=== PATIENT | female | born 1945 | race Caucasian/White ===

== ENCOUNTER → 2017-07-30 08:38 | Outpatient (CLI) | payer MEDICARE, OTHER, SELFPAY ==
[2017-07-30 11:22] LABS: Anion Gap 8 (5-15); BUN 16 mg/dL (7-18); BUN/Creat Ratio 18.8 RATIO (10-20); Calcium,Total 8.8 mg/dL (8.5-10.1); Chloride 102 mmol/L (98-107); Cholesterol 147 mg/dL (200); Creatinine, Serum 0.85 mg/dL (0.55-1.02); EST Glomerular Filtration Rate 70 mL/min (>60); Est Glom Filt Rate - Afr Amer 85 mL/min (>60); Glucose 138 mg/dL (74-106); High Density Lipoprotein 52 mg/dL; Potassium 4.2 mmol/L (3.5-5.1); Sodium Level 138 mmol/L (136-145); Triglycerides 93 mg/dL; Very Low Density Lipoprotein 19 mg/dL (5-40)
[2017-07-30 12:00] LABS: Hemoglobin A1c 7.1 % (4.2-6.3)
[2017-07-31 10:03] LABS: Hep C Antibodies <0.1 s/co ratio (0.0-0.9)
== END ==
PROVIDERS: Family Provider Family Medicine; PCP Family Medicine; Visit Provider Family Medicine
DX: I10 Essential (primary) hypertension (principal); E11.65 Type 2 diabetes mellitus with hyperglycemia; E78.00 Pure hypercholesterolemia, unspecified; Z11.59 Encounter for screening for other viral diseases
CPT/HCPCS: 36415; 80048; 80061; 83036; 86803

== ENCOUNTER → 2018-04-01 10:19 | Outpatient (CLI) | payer MEDICARE, OTHER, SELFPAY ==
--- NOTE | 2018-04-01 10:24 | BI_ITS ---
MAMMOGRAPHY - BILATERAL SCREENING REASON FOR EXAM: Female, 72 years old. Routine annual screening examination. PERTINENT HISTORY: Aunt with breast cancer. TECHNIQUE: Digital bilateral breast jenna (3D mammographic acquisition) in the CC and MLO projections. 2-D mediolateral oblique (MLO) and craniocaudad (CC) views of both breasts were obtained. CAD: Full Field Digital Mammography with Computer Added Detection was performed. COMPARISON: Comparison is made with prior study dated March 30, 2017 and March 14, 2016. FINDINGS: Breast Composition: There are scattered areas of fibroglandular density. There are no dominant masses or suspicious calcifications. Stable appearance of the small benign-appearing axillary lymph nodes. Stable 7.3 mm well-defined nodule with a central Saturday hilum in the upper outer aspect of the left breast No other significant abnormalities are identified. There has been no significant change since the prior study. BI/SCREENING MAMM (CAD), BILAT IMPRESSION: Stable bilateral screening mammogram. Yearly follow-up mammogram recommended. (A) ASSESSMENT CATEGORY: BIRADS Category 2: Benign. A letter regarding these results will be sent to the patient by the facility within 30 days. Approximately 10% of breast cancers are not detected by mammography. A normal mammogram should not delay biopsy of a clinically suspicious abnormality. [id number] Electronically Signed: Bienvenido Casper MD at 11:23 EST Tel [phone], Service support ,
== END ==
PROVIDERS: Family Provider Family Medicine; PCP Family Medicine; Visit Provider Family Medicine
DX: Z12.31 Encounter for screening mammogram for malignant neoplasm of breast (principal)
CPT/HCPCS: 77063; 77067

== ENCOUNTER → 2018-08-11 | Outpatient (CLI) | payer MEDICARE, OTHER, SELFPAY ==
[2018-08-11 10:29] LABS: Anion Gap 9 (5-15); BUN 22 mg/dL (7-18); BUN/Creat Ratio 23.4 RATIO (10-20); Chloride 106 mmol/L (98-107); Cholesterol 145 mg/dL (200); Creatinine, Serum 0.94 mg/dL (0.55-1.02); EST Glomerular Filtration Rate 62 mL/min (>60); Est Glom Filt Rate - Afr Amer 75 mL/min (>60); Glucose 201 mg/dL (74-106); High Density Lipoprotein 51 mg/dL; Sodium Level 139 mmol/L (136-145); Triglycerides 147 mg/dL; Very Low Density Lipoprotein 29 mg/dL (5-40)
[2018-08-11 10:37] LABS: Hemoglobin A1c 7.8 % (4.2-6.3); Vitamin D,25 Hydroxy 59.1 ng/mL (29.95-100.01)
== END | disposition home or self-care (01) ==
PROVIDERS: Family Provider Family Medicine; PCP Family Medicine; Referring Provider Family Medicine; Visit Provider Family Medicine
DX: E78.00 Pure hypercholesterolemia, unspecified (principal); I10 Essential (primary) hypertension; E55.9 Vitamin D deficiency, unspecified; E11.65 Type 2 diabetes mellitus with hyperglycemia
CPT/HCPCS: 36415; 80048; 80061; 82306; 83036

== ENCOUNTER → 2018-09-09 17:56 | Outpatient (CLI) | payer MEDICARE, OTHER, SELFPAY | PROVIDERS: Family Provider Family Medicine; PCP Family Medicine; Referring Provider Nurse Practitioner Adult Health; Visit Provider Nurse Practitioner Adult Health | DX: N76.0 Acute vaginitis (principal) | CPT/HCPCS: 87070; 87205 ==

== ENCOUNTER → 2018-12-31 | Outpatient (CLI) | payer MEDICARE, OTHER, SELFPAY ==
--- NOTE | 2018-12-31 15:53 | RAD_ITS ---
STUDY: X-RAY - RIGHT KNEE REASON FOR EXAM: Female, 73 years old. Pain. TECHNIQUE: 4 view(s) of the knee. COMPARISON: None. FINDINGS: Normal visualized distal femur. Normal visualized proximal tibia and fibula. Normal proximal tibiofibular articulation. There is mild degenerative arthrosis of the medial femorotibial compartment. There is mild degenerative arthrosis of the lateral femorotibial compartment. There is mild degenerative arthrosis of the patellofemoral articulation. There are atherosclerotic calcifications. RAD/Knee 4 or More Views IMPRESSION: Degenerative arthrosis. Atherosclerosis. Electronically Signed: Merlene Saha MD at 16:28 EDT Tel , Service support ,
--- NOTE | 2018-12-31 15:53 | RAD_ITS ---
STUDY: X-RAY - LEFT KNEE REASON FOR EXAM: Female, 73 years old. Knee pain. TECHNIQUE: 4 view(s) of the knee. COMPARISON: None. FINDINGS: Normal visualized distal femur. Normal visualized proximal tibia and fibula. Normal proximal tibiofibular articulation. There is mild degenerative arthrosis of the medial femorotibial compartment. There is mild degenerative arthrosis of the lateral femorotibial compartment. There is mild degenerative arthrosis of the patellofemoral articulation. There are atherosclerotic calcifications. RAD/Knee 4 or More Views IMPRESSION: Degenerative arthrosis. Atherosclerosis. Electronically Signed: Merlene Saha MD at 16:29 EDT Tel , Service support ,
== END | disposition home or self-care (01) ==
LOC: MTRAD 15:52
PROVIDERS: Family Provider Family Medicine; PCP Family Medicine; Referring Provider Family Medicine; Visit Provider Family Medicine
DX: M25.561 Pain in right knee (principal); M25.562 Pain in left knee
CPT/HCPCS: 73564

== ENCOUNTER → 2019-03-17 13:44 | Outpatient (CLI) | payer MEDICARE, OTHER, SELFPAY ==
--- NOTE | 2019-03-17 13:49 | BD_ITS ---
STUDY: DUAL ENERGY X-RAY ABSORPTIOMETRY / DXA REASON FOR EXAM: Female, 73 years old. The patient is postmenopausal. Loss of height. TECHNIQUE: Bone Mineral Density (BMD) measurements of lumbar spine and bilateral hips were obtained. COMPARISON: None. FINDINGS: Lumbar Spine (L1-L4): g/cm2 (1.125) / T-score (-0.4) / Z-score (1.3) Findings are suggestive of normal bone density with a low fracture risk. Left Femur Total: g/cm2 (0.993) / T-score (-0.1) / Z-score (1.4) Left Femoral Neck: g/cm2 (0.839) / T-score (-1.4) / Z-score (0.3) Right Femur Total: g/cm2 (1.042) / T-score (0.3) / Z-score (1.8) Right Femoral Neck: g/cm2 (0.898) / T-score (-1.0) / Z-score (0.8) BD/Dexa Bone Density Study IMPRESSION: The patient is considered osteopenic as outlined below according to World Tomas Organization (WHO) criteria with a low fracture risk. Reference Information: The T-score is the number of standard deviations above or below the standard which is normal for young adults at their peak bone mineral density. The World Health Organization (WHO) interprets the T-scores as follows: Above -1 Normal bone density Between -1 and -2.5 Osteopenia Equal to / or below -2.5 Osteoporosis As a practical clinical guideline, osteopenia may be graded as follows: Mild -1 through -1.5 Moderate -1.6 through -2.0 Severe -2.1 through -2.4 The Z-score is the number of standard deviations above or below age-matched controls. A Z-score of less than -1.5 would be considered abnormal. References: 1. NIH Osteoporosis and Related Bone Diseases http://www.osteo.org 2. International Society for Clinical Densitometry http://www.iscd.org 3. National Osteoporosis Foundation http://www.nof.org Electronically Signed: Bienvenido Casper, at 11:09 EST , Service support ,
== END ==
PROVIDERS: Family Provider Family Medicine; PCP Family Medicine; Referring Provider Family Medicine; Visit Provider Family Medicine
DX: Z78.0 Asymptomatic menopausal state (principal); Z13.820 Encounter for screening for osteoporosis
CPT/HCPCS: 77080

== ENCOUNTER → 2019-03-23 07:32 | Outpatient (CLI) | payer MEDICARE, OTHER, SELFPAY ==
[2019-03-23 07:39] LABS: Mucous, Urine 0 SEEN /hpf (<or=2+)
[2019-03-23 10:23] LABS: Absolute Lymphocyte Count 1.87 X10^3/uL (0.83-4.51); Absolute Neutrophil Count 4.4 X10^3/uL (2.0-7.7); Basophil# 0.03 X10^3/uL; Basophil% 0.4 % (0-1); Eosinophil# 0.52 X10^3/uL; Eosinophils% 6.8 % (0-5); Hematocrit 43.7 % (37-47); Hemoglobin 14.1 g/dL (12.0-15.0); Lymphocyte # 1.87 X10^3/ul (4.0); Lymphocyte % 24.4 % (19-41); Mean Corp Hgb Conc 32.3 g/dL (32-36); Mean Corpuscular Hgb 30.8 pg (27.0-32.0); Mean Corpuscular Volume 95.4 fL (81-99); Mean Platelet Vol. 10.6 fl (6.2-12.0); Monocyte# 0.82 X10^3/uL; Monocyte% 10.7 % (0-10); NRBC Flagged by Analyzer 0 % (0-5); Neutrophil % 57.4 % (47-70); Platelet Count 328 K/mm3 (150-450); RBC Distribution Width CV 13.7 % (11.6-14.6); RBC Distribution Width SD 47.7 fl (35.1-43.9); Red Blood Count 4.58 M/mm3 (4.2-5.4); White Blood Count 7.7 K/mm3 (4.4-11.0)
[2019-03-23 10:24] LABS: Color, Urine Yellow (Yellow); Glucose, Dipstick 1000 mg/dl (Normal); Ketone-Dipstick Negative (Negative); Leukocyte Esterase-Dipstick 500 /ul (Negative); Nitrite-Dipstick Negative (Negative); Occult Blood-Urine 10 /ul (Negative); Protein-Dipstick Negative (Negative); Urine Bilirubin Dipstick Negative (Negative); Urine Clarity Sl. Cloudy (Clear); Urine Urobilinogen Normal (Normal)
[2019-03-23 10:39] LABS: Bacteria 1+ /hpf (None Seen); Red Blood Cells-Urine 0-5 SEEN /hpf (0-5); Squamous Epithelial Cells - UA 0-5 SEEN /hpf (5-10); White Blood Cells 50-100 SEEN /hpf (0-5)
[2019-03-23 10:39] LABS: Vitamin D,25 Hydroxy 58.9 ng/mL (29.95-100.01)
[2019-03-23 10:40] LABS: Hemoglobin A1c 7.5 % (4.2-6.3)
[2019-03-23 10:45] LABS: Microalbumin,Random Urine 11.9 mg/L (NO RANGE EST.); Microalbumin:Creatinine Ratio 17.6 mg/g CRE (<30 mg/g CRE)
[2019-03-23 10:51] LABS: AST(SGOT) 11 U/L (15-37); Alanine Aminotransfer ALT/SGPT 23 U/L (13-56); Albumin, Serum 3.5 g/dL (3.2-5.0); Alkaline Phosphatase 103 U/L (45-117); Anion Gap 8 (5-15); BUN 21 mg/dL (7-18); BUN/Creat Ratio 22.4 RATIO (10-20); Calcium,Total 9.2 mg/dL (8.5-10.1); Chloride 103 mmol/L (98-107); Cholesterol 153 mg/dL (200); Creatinine, Serum 0.94 mg/dL (0.55-1.02); EST Glomerular Filtration Rate 63 mL/min (>60); Est Glom Filt Rate - Afr Amer 76 mL/min (>60); Globulin 3.6 g/dL (2.2-4.2); Glucose 173 mg/dL (74-106); High Density Lipoprotein 51 mg/dL; Potassium 4.1 mmol/L (3.5-5.1); Protein, Total 7.1 g/dL (6.4-8.2); Sodium Level 138 mmol/L (136-145); Thyroid Stim Hormone (TSH) 1.78 uIU/mL (0.358-3.74); Triglycerides 129 mg/dL; Very Low Density Lipoprotein 26 mg/dL (5-40)
== END ==
PROVIDERS: Family Provider Family Medicine; PCP Family Medicine; Referring Provider Family Medicine; Visit Provider Family Medicine
DX: I10 Essential (primary) hypertension (principal); E11.65 Type 2 diabetes mellitus with hyperglycemia; E78.00 Pure hypercholesterolemia, unspecified; E55.9 Vitamin D deficiency, unspecified
CPT/HCPCS: 36415; 80053; 80061; 81001; 82043; 82306; 82570; 83036; 84443; 85025

== ENCOUNTER → 2019-04-02 14:45 | Outpatient (CLI) | payer MEDICARE, OTHER, SELFPAY ==
--- NOTE | 2019-04-02 14:48 | BI_ITS ---
MAMMOGRAPHY - BILATERAL SCREENING REASON FOR EXAM: Female, 73 years old. Routine annual screening examination. PERTINENT HISTORY: Aunt with breast cancer. TECHNIQUE: Digital bilateral breast beth (3D mammographic acquisition) in the CC and MLO projections. 2-D mediolateral oblique (MLO) and craniocaudad (CC) views of both breasts were obtained. CAD: Full Field Digital Mammography with Computer Added Detection was performed. COMPARISON: Comparison is made with prior study dated April 01, 2018 and March 30, 2017. FINDINGS: Breast Composition: There are scattered areas of fibroglandular density. There are no dominant masses or suspicious calcifications. Stable benign-appearing lateral axillary lymph nodes. Stable 7.3 mm well-defined nodule in the upper outer aspect of the left breast suggestive of a small lymph node. No other significant abnormalities are identified. There has been no significant change since the prior study. BI/SCREEN MAMM (CAD) W/BETH BILAT IMPRESSION: Stable bilateral screening mammogram. Yearly follow-up mammogram recommended. (A) ASSESSMENT CATEGORY: BIRADS Category 2: Benign. A letter regarding these results will be sent to the patient by the facility within 30 days. Approximately 10% of breast cancers are not detected by mammography. A normal mammogram should not delay biopsy of a clinically suspicious abnormality. [id number] Electronically Signed: Bienvenido Casper, at 15:59 EST , Service support ,
== END ==
PROVIDERS: Family Provider Family Medicine; PCP Family Medicine; Referring Provider Family Medicine; Visit Provider Family Medicine
DX: Z12.31 Encounter for screening mammogram for malignant neoplasm of breast (principal)
CPT/HCPCS: 77063; 77067

== ENCOUNTER 2019-04-27 15:01 | Outpatient (RCR) | payer MEDICARE, OTHER, SELFPAY | END 2019-04-28 23:59 | LOC: DC 15:01 | PROVIDERS: Family Provider Family Medicine; PCP Family Medicine; Visit Provider Family Medicine | DX: Z71.3 Dietary counseling and surveillance (principal); E11.65 Type 2 diabetes mellitus with hyperglycemia | CPT/HCPCS: 97802 ==

== ENCOUNTER 2019-05-18 13:00 | Outpatient (RCR) | payer MEDICARE, OTHER, SELFPAY | END 2019-05-18 23:59 | disposition home or self-care (01) | LOC: DC 13:00 | PROVIDERS: Family Provider Family Medicine; PCP Family Medicine; Visit Provider Family Medicine | DX: Z71.3 Dietary counseling and surveillance (principal); E11.65 Type 2 diabetes mellitus with hyperglycemia | CPT/HCPCS: 97803; G0108 ==

== ENCOUNTER → 2019-10-15 07:31 | Outpatient (CLI) | payer MEDICARE, OTHER, SELFPAY ==
[2019-10-15 10:41] LABS: Hemoglobin A1c 7.1 % (3.8-5.6)
[2019-10-15 10:51] LABS: ALB/GLOB Ratio 0.9 RATIO (0.9-2.4); AST(SGOT) 13 U/L (15-37); Alanine Aminotransfer ALT/SGPT 20 U/L (13-56); Albumin, Serum 3.5 g/dL (3.2-5.0); Alkaline Phosphatase 104 U/L (45-117); Anion Gap 8 (5-15); BUN 20 mg/dL (7-18); BUN/Creat Ratio 21.1 RATIO (10-20); Calcium,Total 9.1 mg/dL (8.5-10.1); Chloride 103 mmol/L (98-107); Cholesterol 151 mg/dL (200); Creatinine, Serum 0.95 mg/dL (0.55-1.02); EST Glomerular Filtration Rate 62 mL/min (>60); Est Glom Filt Rate - Afr Amer 74 mL/min (>60); Globulin 3.8 g/dL (2.2-4.2); Glucose 159 mg/dL (74-106); High Density Lipoprotein 54 mg/dL; Phosphorus 3.7 mg/dL (2.5-4.9); Potassium 4.1 mmol/L (3.5-5.1); Protein, Total 7.3 g/dL (6.4-8.2); Sodium Level 138 mmol/L (136-145); Triglycerides 133 mg/dL; Very Low Density Lipoprotein 27 mg/dL (5-40)
== END ==
PROVIDERS: PCP Family Medicine; Referring Provider Family Medicine; Visit Provider Family Medicine
DX: E11.65 Type 2 diabetes mellitus with hyperglycemia (principal); E78.00 Pure hypercholesterolemia, unspecified; M85.80 Other specified disorders of bone density and structure, unspecified site; E55.9 Vitamin D deficiency, unspecified
CPT/HCPCS: 36415; 80053; 80061; 82306; 83036; 84100

== ENCOUNTER → 2020-02-12 | Outpatient (CLI) | payer MEDICARE, OTHER, SELFPAY ==
[2020-02-12 10:12] LABS: Absolute Neutrophil Count 4.8 X10^3/uL (2.0-7.7); Basophil# 0.02 X10^3/uL; Basophil% 0.3 % (0-1); Eosinophil# 0.48 X10^3/uL; Eosinophils% 6.3 % (0-5); Hematocrit 43.5 % (37-47); Lymphocyte % 19.7 % (19-41); Mean Corp Hgb Conc 32.2 g/dL (32-36); Mean Corpuscular Hgb 30.2 pg (27.0-32.0); Mean Platelet Vol. 10.6 fl (6.2-12.0); Monocyte# 0.78 X10^3/uL; Monocyte% 10.3 % (0-10); NRBC Flagged by Analyzer 0 % (0-5); Neutrophil % 63.1 % (47-70); Platelet Count 322 K/mm3 (150-450); RBC Distribution Width CV 13.8 % (11.6-14.6); RBC Distribution Width SD 48.1 fl (35.1-43.9); Red Blood Count 4.63 M/mm3 (4.2-5.4); White Blood Count 7.6 K/mm3 (4.4-11.0)
[2020-02-12 10:48] LABS: Microalbumin,Random Urine < 5.0 mg/L (NO RANGE EST.)
[2020-02-12 10:49] LABS: Hemoglobin A1c 7.3 % (3.8-5.6)
[2020-02-12 11:00] LABS: ALB/GLOB Ratio 0.9 RATIO (0.9-2.4); AST(SGOT) 15 U/L (15-37); Alanine Aminotransfer ALT/SGPT 20 U/L (13-56); Albumin, Serum 3.4 g/dL (3.2-5.0); Alkaline Phosphatase 113 U/L (45-117); Anion Gap 6 (5-15); BUN 16 mg/dL (7-18); BUN/Creat Ratio 16.3 RATIO (10-20); Calcium,Total 9.2 mg/dL (8.5-10.1); Chloride 107 mmol/L (98-107); Cholesterol 155 mg/dL (200); Creatinine, Serum 0.98 mg/dL (0.55-1.02); EST Glomerular Filtration Rate 59 mL/min (>60); Est Glom Filt Rate - Afr Amer 71 mL/min (>60); Globulin 3.7 g/dL (2.2-4.2); Glucose 209 mg/dL (74-106); High Density Lipoprotein 59 mg/dL; Potassium 4.4 mmol/L (3.5-5.1); Protein, Total 7.1 g/dL (6.4-8.2); Sodium Level 138 mmol/L (136-145); Triglycerides 107 mg/dL; Very Low Density Lipoprotein 21 mg/dL (5-40)
== END | disposition home or self-care (01) ==
LOC: MTLAB 08:45
PROVIDERS: PCP Family Medicine; Referring Provider Family Medicine; Visit Provider Family Medicine
DX: E78.00 Pure hypercholesterolemia, unspecified (principal); E55.9 Vitamin D deficiency, unspecified; E11.65 Type 2 diabetes mellitus with hyperglycemia
CPT/HCPCS: 36415; 80053; 80061; 82043; 82306; 82570; 83036; 85025

== ENCOUNTER → 2020-06-16 08:48 | Outpatient (CLI) | payer MEDICARE, OTHER, SELFPAY ==
[2020-06-16 10:23] LABS: Absolute Lymphocyte Count 1.98 X10^3/uL (0.83-4.51); Absolute Neutrophil Count 4.5 X10^3/uL (2.0-7.7); Basophil# 0.03 X10^3/uL; Basophil% 0.4 % (0-1); Eosinophil# 0.36 X10^3/uL; Eosinophils% 4.7 % (0-5); Hemoglobin 14.4 g/dL (12.0-15.0); Lymphocyte # 1.98 X10^3/ul (4.0); Mean Corp Hgb Conc 32.7 g/dL (32-36); Mean Corpuscular Hgb 30.6 pg (27.0-32.0); Mean Corpuscular Volume 93.4 fL (81-99); Mean Platelet Vol. 10.4 fl (6.2-12.0); Monocyte# 0.72 X10^3/uL; Monocyte% 9.4 % (0-10); NRBC Flagged by Analyzer 0 % (0-5); Neutrophil # 4.52 X10^3/uL (2.7-7.7); Neutrophil % 59.2 % (47-70); Platelet Count 362 K/mm3 (150-450); RBC Distribution Width CV 13.4 % (11.6-14.6); RBC Distribution Width SD 45.6 fl (35.1-43.9); Red Blood Count 4.71 M/mm3 (4.2-5.4); White Blood Count 7.6 K/mm3 (4.4-11.0)
[2020-06-16 10:41] LABS: AST(SGOT) 14 U/L (15-37); Alanine Aminotransfer ALT/SGPT 21 U/L (13-56); Albumin, Serum 3.7 g/dL (3.2-5.0); Alkaline Phosphatase 117 U/L (45-117); Anion Gap 5 (5-15); BUN 22 mg/dL (7-18); BUN/Creat Ratio 22.7 RATIO (10-20); Calcium,Total 9.3 mg/dL (8.5-10.1); Chloride 103 mmol/L (98-107); Cholesterol 167 mg/dL (200); Creatinine, Serum 0.97 mg/dL (0.55-1.02); EST Glomerular Filtration Rate 60 mL/min (>60); Est Glom Filt Rate - Afr Amer 73 mL/min (>60); Globulin 3.8 g/dL (2.2-4.2); Glucose 159 mg/dL (74-106); High Density Lipoprotein 58 mg/dL; Potassium 4.1 mmol/L (3.5-5.1); Protein, Total 7.5 g/dL (6.4-8.2); Sodium Level 137 mmol/L (136-145); Triglycerides 134 mg/dL; Very Low Density Lipoprotein 27 mg/dL (5-40)
[2020-06-16 10:42] LABS: Hemoglobin A1c 7.5 % (3.8-5.6)
[2020-06-16 10:47] LABS: Vitamin D,25 Hydroxy 53.3 ng/mL
== END ==
PROVIDERS: PCP Family Medicine; Referring Provider Family Medicine; Visit Provider Family Medicine
DX: I10 Essential (primary) hypertension (principal); E78.00 Pure hypercholesterolemia, unspecified; E11.65 Type 2 diabetes mellitus with hyperglycemia; E55.9 Vitamin D deficiency, unspecified
CPT/HCPCS: 36415; 80053; 80061; 82306; 83036; 85025

== ENCOUNTER 2020-06-22 13:42 | Outpatient (RCR) | payer MEDICARE, SELFPAY | END 2020-06-22 23:59 | LOC: IMMUN 13:42 | PROVIDERS: PCP Family Medicine; Visit Provider Family Medicine | DX: Z23 Encounter for immunization (principal) | CPT/HCPCS: 0011A; 0012A; 91301 ==

== ENCOUNTER → 2020-08-17 09:51 | Outpatient (CLI) | payer MEDICARE, SELFPAY | PROVIDERS: PCP Family Medicine; Visit Provider Family Medicine | DX: I10 Essential (primary) hypertension (principal); E11.65 Type 2 diabetes mellitus with hyperglycemia; E78.00 Pure hypercholesterolemia, unspecified; E55.9 Vitamin D deficiency, unspecified ==

== ENCOUNTER → 2020-08-30 | Outpatient (CLI) | payer MEDICARE, OTHER, SELFPAY | END | disposition home or self-care (01) | PROVIDERS: PCP Family Medicine; Visit Provider Family Medicine | DX: R39.9 Unspecified symptoms and signs involving the genitourinary system (principal) | CPT/HCPCS: 87086; 87088 ==

== ENCOUNTER → 2020-09-02 14:03 | Outpatient (CLI) | payer MEDICARE, OTHER, SELFPAY ==
--- NOTE | 2020-09-02 14:06 | RAD_ITS ---
STUDY: X-RAY - LUMBAR SPINE REASON FOR EXAM: Female, 75 years old. PAIN TECHNIQUE: 3 view(s) of the lumbar spine were obtained. COMPARISON: None FINDINGS: Normal lumbar lordosis. There is no substantial scoliosis. There is a normal alignment of the vertebrae. There is compression deformity of the L1 vertebra which is age indeterminate. Remainder the vertebral exercise maintained. There is osteopenia and endplate spondylosis at multiple levels. Normal disc space heights. There is degenerative facet disease. There is atherosclerotic calcification of the abdominal aorta without a demonstrated aneurysm. RAD/Lumbar Spine 2 or 3 Views IMPRESSION: Degenerative change lumbar spine with age indeterminate compression deformity of L1. Electronically Signed: Javon Clemons DO at 18:41 EDT Tel [phone], Service support ,
== END ==
PROVIDERS: PCP Family Medicine; Referring Provider Family Medicine; Visit Provider Family Medicine
DX: M47.819 Spondylosis without myelopathy or radiculopathy, site unspecified (principal)
CPT/HCPCS: 72100

== ENCOUNTER → 2020-09-27 | Outpatient (CLI) | payer MEDICARE, OTHER, SELFPAY ==
[2020-09-19 10:23] VITALS: BMI 35.9
--- NOTE | 2020-09-27 12:50 | DISC_PTH ---
PATIENT: DANTE LOPEZ LOC: [facility] U#:[id number] AGE/SX: 75/F ROOM: RE09/27/[address]: Dr. Shay Bender MD : 1945 BED: DIS: 09/27/2020 SPEC #: [id number] RECD: 09/27/20 15:06 STATUS: RICKY RENoemi #: [id number] WHITNEY: 09/27/20 12:[address]: Shay Bender DEPT: SURGICAL PATHOLOGY RECD BY: Selena Gill ENTERED: 09/28/20 11:17 SP TYPE: DISC OTHR DR: Dr. Magdaleno Watkins MD [facility] Tissues: A - Intervertebral disc, NOS B - Intervertebral disc, NOS Procedures: Decalcification bone/plaque Surgery Specimen Level V HEADER OPERATION: Kyphoplasty T11, L1 PRE-OP DIAGNOSIS: Compression fracture of lumbar spine TISSUE SUBMITTED: A ? Body of T11, B ? Body of L1 MICROSCOPIC DIAGNOSIS A. Body of T11, core biopsy: A piece of bone, negative for malignancy, clinically compression fracture. B. Body of L1, core biopsy: A piece of bone with reactive changes and callous formation, clinically compression fracture. Negative for malignancy. See comment. SJ:rg 09/30/2020 COMMENT B. Fragments of blood clots are also noted. MICROSCOPIC DESCRIPTION Slides are reviewed. GROSS DESCRIPTION A - Received in fixative is one container labeled with the patient's name and designated body of T11. The specimen consists of a piece of bone measuring 0.5 x 0.2 x 0.1 cm. The entire specimen is submitted in one cassette after short decalcification. B - Received in fixative is one container labeled with the patient's name and designated body of L1. The specimen consists of a fragment of bone measuring 0.3 x 0.1 x 0.1 cm. Multiple fragments of blood clots are also noted that in aggregate measure 1 x 0.7 x 0.1 cm. The entire specimen is submitted in one cassette after short decalcification. / BEATRIS:kd 09/28/20 TC:5 CPT: 89860 x2, 15514 x2
== END | disposition home or self-care (01) ==
LOC: LABSPEC 15:37
PROVIDERS: PCP Family Medicine; Visit Provider Anesthesiology Pain Medicine
DX: S32.000A Wedge compression fracture of unspecified lumbar vertebra, initial encounter for closed fracture (principal)
CPT/HCPCS: 88304; 88307; 88311

== ENCOUNTER → 2020-10-12 08:43 | Outpatient (CLI) | payer MEDICARE, OTHER, SELFPAY ==
[2020-09-19 10:23] VITALS: BMI 35.9
[2020-10-12 10:23] LABS: Absolute Lymphocyte Count 1.86 X10^3/uL (0.83-4.51); Absolute Neutrophil Count 3.5 X10^3/uL (2.0-7.7); Basophil# 0.03 X10^3/uL; Basophil% 0.4 % (0-1); Eosinophil# 0.52 X10^3/uL; Eosinophils% 7.7 % (0-5); Lymphocyte # 1.86 X10^3/ul (0.83-4.51); Lymphocyte % 27.7 % (19-41); Mean Corp Hgb Conc 32.6 g/dL (32-36); Mean Corpuscular Hgb 30.8 pg (27.0-32.0); Mean Corpuscular Volume 94.5 fL (81-99); Mean Platelet Vol. 9.5 fl (6.2-12.0); Monocyte% 11.9 % (0-10); NRBC Flagged by Analyzer 0 % (0-5); Neutrophil # 3.49 X10^3/uL (2.7-7.7); Platelet Count 488 K/mm3 (150-450); RBC Distribution Width CV 14.8 % (11.6-14.6); RBC Distribution Width SD 51.4 fl (35.1-43.9); Red Blood Count 4.55 M/mm3 (4.2-5.4); White Blood Count 6.7 K/mm3 (4.4-11.0)
[2020-10-12 10:37] LABS: AST(SGOT) 17 U/L (15-37); Alanine Aminotransfer ALT/SGPT 18 U/L (13-56); Albumin, Serum 3.6 g/dL (3.2-5.0); Alkaline Phosphatase 120 U/L (45-117); Anion Gap 9 (5-15); BUN 18 mg/dL (7-18); BUN/Creat Ratio 22.1 RATIO (10-20); Calcium,Total 9.4 mg/dL (8.5-10.1); Chloride 100 mmol/L (98-107); Cholesterol 136 mg/dL (200); Creatinine, Serum 0.82 mg/dL (0.55-1.02); EST Glomerular Filtration Rate 73 mL/min (>60); Est Glom Filt Rate - Afr Amer 88 mL/min (>60); Globulin 3.6 g/dL (2.2-4.2); Glucose 153 mg/dL (74-106); High Density Lipoprotein 49 mg/dL; Potassium 4.2 mmol/L (3.5-5.1); Protein, Total 7.2 g/dL (6.4-8.2); Sodium Level 137 mmol/L (136-145); Triglycerides 176 mg/dL; Very Low Density Lipoprotein 35 mg/dL (5-40)
[2020-10-12 10:41] LABS: Vitamin D,25 Hydroxy 71.3 ng/mL
[2020-10-12 10:53] LABS: Hemoglobin A1c 6.8 % (3.8-5.6)
[2020-10-12 13:03] LABS: Microalbumin,Random Urine 11.2 mg/L (NO RANGE EST.); Microalbumin:Creatinine Ratio 16.3 mg/g CRE (<30 mg/g CRE)
== END ==
PROVIDERS: PCP Family Medicine; Referring Provider Family Medicine; Visit Provider Family Medicine
DX: E11.65 Type 2 diabetes mellitus with hyperglycemia (principal); I10 Essential (primary) hypertension; E55.9 Vitamin D deficiency, unspecified
CPT/HCPCS: 36415; 80053; 80061; 82043; 82306; 82570; 83036; 85025

== ENCOUNTER 2020-10-13 12:26 | Emergency (ER) | payer MEDICARE, OTHER, SELFPAY ==
[2020-10-12 10:43] VITALS: BMI 35.9
[2020-10-13 12:27] VITALS: BP 183/99; PULSE 9; RESP 16; TEMP 36.7; O2SAT 98; BMI 36.3
--- NOTE | 2020-10-13 12:33 | CT_ITS ---
STUDY: CT THORACIC SPINE WITHOUT CONTRAST REASON FOR EXAM: Female, 75 years old. pain, fracture RADIATION DOSAGE (If Supplied By Facility): CTDIvol = ( 39.78 ) mGy, DLP = ( 1483.70 ) mGycm TECHNIQUE: The patient was scanned in a multi detector CT scanner. High resolution imaging was performed. Images were obtained from to . Sagittal and coronal images were reconstructed. Individualized dose optimization techniques were used for this CT. COMPARISON: None. FINDINGS: Normal visualized cervical spine. The bones are markedly osteopenic. Normal kyphosis of the thoracic spine. There is no substantial scoliosis. There is T11 anterior wedge compression fracture with marked loss of vertebral body height, post kyphoplasty. There is acute nondisplaced fracture of the T12 inferior endplate, primarily on the right, with minimal loss of vertebral body height. Again seen is an L1 compression fracture post vertebral body kyphoplasty with persistent marked loss of vertebral body height. . There is multilevel degenerative disc disease with loss of the disc space heights and multilevel anterior bridging osteophytes. There is small amount of hyperdense material/kyphoplasty material in the T9-T10 disc space. There is a partially visualized enhancing right thyroid lobe nodule measuring at least 1.9 cm. There is aortic atherosclerotic disease and tortuosity. There are marked coronary artery calcifications and/or stents. There is mitral annular calcification. CT/Spine Thoracic without Contras IMPRESSION: 1. There is acute nondisplaced fracture of the T12 inferior endplate, primarily on the right, with minimal loss of vertebral body height. 2. There is T11 anterior wedge compression fracture and L1 compression fracture post vertebral body kyphoplasty with persistent marked loss of vertebral body height. 3. Partially visualized 1.9 cm right thyroid lobe nodule. Thyroid ultrasound can be obtained for further characterization. 4. Remaining chronic findings are described above. Electronically Signed: Sirisha Mac MD at 14:01 EDT Tel , Service support ,
--- NOTE | 2020-10-13 12:33 | CT_ITS ---
STUDY: CT LUMBAR SPINE WITHOUT CONTRAST REASON FOR EXAM: Female, 75 years old. pain, fracture RADIATION DOSAGE (If Supplied By Facility): CTDIvol = ( 45.15 ) mGy, DLP = ( 1311.68 ) mGycm TECHNIQUE: The patient was scanned in a multi detector CT scanner. High resolution transaxial imaging was performed. Images were obtained from T12 to S3. Sagittal and coronal images were reconstructed. Individualized dose optimization techniques were used for this CT. COMPARISON: Lumbar spine x-ray 09/19/2020 and 10/12/2020 FINDINGS: Normal lumbar lordosis. There is no substantial scoliosis. Again seen is an L1 compression fracture post vertebral body kyphoplasty with persistent moderate to marked loss of vertebral body height. There is acute nondisplaced fracture of the T12 inferior endplate, primarily on the right, with minimal loss of vertebral body height. T12-L1: Normal endplates. There is mild annular disc bulge. Normal bilateral facet joints. Normal central canal and bilateral lateral recesses. There is marked left and moderate to marked right foraminal narrowing. L1-2: Normal endplates. There is mild annular disc bulge. Normal bilateral facet joints. Normal central canal and bilateral lateral recesses. Marked narrowing of the intervertebral neural foramina. L2-3: L2 superior endplate Schmorl''s node. There is mild annular disc bulge. Normal bilateral facet joints. Normal central canal and bilateral lateral recesses. Moderate narrowing of the intervertebral neural foramina. L3-4: Normal endplates. There is moderate annular disc bulge and ligamentum flavum hypertrophy. Mild bilateral facet arthrosis. Moderate central canal narrowing. Moderate bilateral foraminal narrowing. L4-5: Normal endplates. Mild annular disc bulge. Mild facet arthrosis. Mild central canal narrowing. Moderate foraminal narrowing. L5-S1: Normal endplates. Normal disc height and morphology. Mild to moderate facet arthrosis. Normal central canal and bilateral lateral recesses. Normal bilateral intervertebral neural foramina. Normal visualized paraspinous soft tissue structures. There is marked aortic atherosclerotic disease. There is marked atherosclerosis at the origin of the left renal artery. CT/Spine Lumbar without Contrast IMPRESSION: 1. There is acute nondisplaced fracture of the T12 inferior endplate, primarily on the right, with minimal loss of vertebral body height. 2. Again seen is an L1 compression fracture post vertebral body kyphoplasty with persistent moderate to marked loss of vertebral body height. 3. Multilevel degenerative disc disease 4. Marked atherosclerosis at the origin of the left renal artery. Electronically Signed: Sirisha Mac MD at 13:50 EDT Tel , Service support ,
--- NOTE | 2020-10-13 12:37 | EDS_ITS ---
HPI History of Present Illness Chief Complaint: Back Informant: patient and EMS Onset/Context/Timing Onset: Days Context: Gradual Onset Timing: Continuous Quality: Aching and Burning Location: Thoracic and Lumbar Current Severity: Moderate Maximum Severity: Severe Worsened by: improves with Movement, Ambulation and Bending Relieved by: Remaining Still Associated Symptoms Associated Symptoms: Negative for Numbness, Tingling, Radiation to Right Leg, Radiation to Left Leg, Urinary Retention and Urinary Incontinence Narrative Narrative: The patient is a 75-year-old female with medical history significant for hypertension, diabetes, and prior compression fracture who presents to the emergency department increasing back pain. The patient had a fall in July. She was found to have 2 compression fractures in her spine. She underwent kyphoplasty. She states she was doing better until few days ago, she began to have increasing pain. She did not have a fall. She states that she had outpatient x-rays done yesterday which showed no fracture. She states that she has a difficult time ambulating and taking care of her self because of the pain. She states that she is able to control the pain when she is not moving, but when she gets up and tries to ambulate, she does have pain. [facility] Medical History Diabetes High cholesterol Hypertension Home Medications atorvastatin 20 mg tablet mg PO 09/19/20 [History Last Taken Unknown] dapagliflozin 10 mg tablet mg PO 09/19/20 [History Last Taken Unknown] fluticasone propionate 50 mcg/actuation nasal spray,suspension INTRANASAL 09/19/20 [History Last Taken Unknown] glipizide 5 mg-metformin 500 mg tablet tab PO 09/19/20 [History Last Taken Unknown] latanoprost 0.005 % eye drops drp OPHTHALMIC (EYE) 09/19/20 [History Last Taken Unknown] lisinopril 10 mg tablet mg PO 09/19/20 [History Last Taken Unknown] oxybutynin chloride 10 mg tablet,extended release 24 hr mg PO 09/19/20 [History Last Taken Unknown] pantoprazole 40 mg tablet,delayed release mg PO 09/19/20 [History Last Taken Unknown] timolol maleate 0.5 % eye drops drp OPHTHALMIC (EYE) 09/19/20 [History Last Taken Unknown] baclofen 10 mg tablet mg PO 10/12/20 [History Last Taken Unknown] exenatide microspheres 2 mg/0.65 mL subcutaneous pen injector ea SUBCUT 10/12/20 [History Last Taken Unknown] hydrocodone 7.5 mg-acetaminophen 325 mg tablet 2 tab PO tab 10/12/20 [History Last Taken Unknown] Allergy/AdvReac Type Severity Reaction Status Date / Time No Known Allergies Allergy Unverified 09/19/20 10:20 Family History Other Diabetes Heart disease Hypertension Social History Smoking Status: Never smoker alcohol intake: never ROS ROS ED Constitutional Constitutional ED: Denies chills or fever(s) Eyes Eyes: Denies blurry vision or change in vision ENT ENT ED: Denies ear pain or sore throat Cardiovascular Cardiovascular: Denies chest pain or palpitations Respiratory/Chest Respiratory/Chest: Denies cough, dyspnea or dyspnea on exertion Gastrointestinal Gastrointestinal: Denies abdominal pain, nausea or vomiting Genitourinary Genitourinary ED: Denies dysuria or urinary frequency Musculoskeletal Musculoskeletal: Reports back pain; Denies arthralgias or myalgias Integumentary Denies rash Neurologic Neurologic: Denies headache(s) or paresthesias Psychiatric Psychiatric: Denies anxiety or depression Endocrine Endocrinology: Denies polydipsia or polyuria Allergic/Immunologic Allergic/Immunologic ED: Denies urticaria EXAM Physical Exam Const Vital Signs: 10/13/20 12:27 10/13/20 13:44 Temperature 98.1 F Temperature Source Temporal Pulse Rate 9 L 93 Respiratory Rate 16 20 H Blood Pressure 183/99 H 168/104 H Blood Pressure Mean 127 125 Pulse Ox 98 99 Oxygen Delivery Method Room Air Room Air Positive well nourished and well developed General Appearance ED: well developed HEENT Reports normocephalic, head/scalp atraumatic and moist mucous membranes Eyes PERRL and EOMs intact bilaterally Neck no lymphadenopathy and supple General: Negative for tenderness Chest Wall inspection of chest normal Resp normal respiratory effort and clear to auscultation bilaterally Cardio regular rate, regular rhythm and no murmurs GI normal to inspection, nondistended, normoactive bowel sounds Palpation: Negative for tender, guarding or rebound tenderness present Back/Spine no CVA tenderness Cervical Spine: Negative for cervical spine tenderness Thoracic Spine / Upper Back: Negative for thoracic spinal tenderness Lumbar Spine / Lower Back: straight leg raise negative bilaterally Extremity normal to inspection General Extremety ED: Negative for tenderness Neuro oriented x3 and CN's II-XII intact bilaterally Neuro Narrative: No focal deficits appreciated. Sensorium / Orientation: alert Motor Exam: strength 5/5 throughout Deep Tendon Reflexes: Rt Patellar (L4): 2+, Lt Patellar (L4): 2+, Rt Ankle (S1): 2+ and Lt Ankle (S1): 2+ Deep Tendon Reflexes Back: Rt Patellar (L4): 2+, Lt Patellar (L4): 2+, Rt Ankle (S1): 2+ and Lt Ankle (S1): 2+ Psych mental status grossly normal Skin no rashes or lesions noted, no wounds and skin turgor normal MDM MDM MDM Narrative Medical decision making narrative: Patient presents with back pain. She states she was diagnosed with a new compression fracture yesterday and was worried if she did not take care of it, it could get worse. She has no red flag symptoms. Metabolic work-up was pursued and was unremarkable. Her urine does show some trace evidence of infection, but she is totally asymptomatic. I will culture and not treat. CT imaging was obtained which shows small fracture at T12. I did review this with both Dr. Brizuela, the patient's spine surgeon and with Dr. Duron, the physician who did her kyphoplasty. They do not see an acute reason for admission as they feel this can safely be handled as an outpatient. She is going to call Dr. Duron's office today to hopefully be seen later this afternoon or early tomorrow. The patient and her niece are comfortable with this plan of care. She will be discharged home. Impression 1. T12 endplate fracture Lab Data Attestation: I reviewed the patient's lab results. Labs: Laboratory Results - last 24 hr 10/13/20 10/13/20 10/13/20 12:45 12:45 13:40 WBC 9.6 RBC 4.62 Hgb 14.2 Hct 43.2 MCV 93.5 MCH 30.7 MCHC 32.9 RDW Std Deviation 50.8 H RDW Coeff of Reza 14.7 H Plt Count 438 MPV 8.9 Immature Gran % (Auto) 0.300 Neut % (Auto) 66.0 Lymph % (Auto) 18.9 L [place] % (Auto) 10.5 H Eos % (Auto) 3.9 Baso % (Auto) 0.4 Absolute Neuts (auto) 6.4 Absolute Lymphs (auto) 1.82 Nucleated RBC % 0 Sodium 138 Potassium 4.2 Chloride 102 Carbon Dioxide 28.0 Anion Gap 8 BUN 20 H Creatinine 0.78 Estim Creat Clear Calc 52.36 Est GFR (MDRD) Af Amer 93 Est GFR (MDRD) Non-Af 77 BUN/Creatinine Ratio 25.5 H Glucose 119 H Calcium 9.8 Urine Color Yellow Urine Clarity Clear Urine pH 7.0 Ur Specific [place] 1.010 Urine Protein Negative Urine Glucose (UA) 1000 H Urine Ketones 5 H Urine Occult Blood Negative Urine Nitrite Positive H Urine Bilirubin Negative Urine Urobilinogen Normal Ur Leukocyte Esterase 100 H Urine RBC 0 SEEN Urine WBC 10-25 SEEN Ur Squamous Epith Cells 0-5 SEEN Urine Bacteria 2+ Urine Mucus 0 SEEN Radiography Diagnostic Testing: Radiology Impression Lumbar Spine CT 10/13/20 12:33 IMPRESSION: 1. There is acute nondisplaced fracture of the T12 inferior endplate, primarily on the right, with minimal loss of vertebral body height. 2. Again seen is an L1 compression fracture post vertebral body kyphoplasty with persistent moderate to marked loss of vertebral body height. 3. Multilevel degenerative disc disease 4. Marked atherosclerosis at the origin of the left renal artery. Electronically Signed: Sirisha Mac MD at 13:50 EDT Tel , Service support , Thoracic Spine CT 10/13/20 12:33 IMPRESSION: 1. There is acute nondisplaced fracture of the T12 inferior endplate, primarily on the right, with minimal loss of vertebral body height. 2. There is T11 anterior wedge compression fracture and L1 compression fracture post vertebral body kyphoplasty with persistent marked loss of vertebral body height. 3. Partially visualized 1.9 cm right thyroid lobe nodule. Thyroid ultrasound can be obtained for further characterization. 4. Remaining chronic findings are described above. Electronically Signed: Sirisha Mac MD at 14:01 EDT Tel , Service support , Discharge Plan Triage Chief Complaint: Back ED Provider: Trevor Leigh Dx/Rx/DC Orders Instructions: Back Fracture (Compression Fracture) Prescriptions: No Action lisinopril 10 mg tablet PO RF: 0 atorvastatin 20 mg tablet PO RF: 0 Farxiga 10 mg tablet PO RF: 0 glipizide-metformin 5-500 mg tablet PO RF: 0 pantoprazole 40 mg tablet,delayed release (DR/EC) PO RF: 0 oxybutynin chloride 10 mg tablet extended release 24hr PO RF: 0 fluticasone propionate 50 mcg/actuation spray,suspension intranasal RF: 0 timolol maleate 0.5 % drops ophthalmic (eye) RF: 0 latanoprost 0.005 % drops ophthalmic (eye) RF: 0 hydrocodone-acetaminophen 7.5-325 mg tablet 2 tab PO RF: 0 baclofen 10 mg tablet PO RF: 0 Bydureon 2 mg/0.65 mL pen injector subcut RF: 0 Primary Care Provider: Magdaleno Watkins Referrals: Magdaleno Watkins MD [Primary Care Provider] - Shay Bender MD [STAFF PHYSICIAN] - As soon as possible
[2020-10-13] MEDS: 0.9% Normal Saline 1,000 ML 150 ML IV (12:48)
[2020-10-13 12:55] LABS: Absolute Lymphocyte Count 1.82 X10^3/uL (0.83-4.51); Absolute Neutrophil Count 6.4 X10^3/uL (2.0-7.7); Basophil# 0.04 X10^3/uL; Basophil% 0.4 % (0-1); Eosinophil# 0.38 X10^3/uL; Eosinophils% 3.9 % (0-5); Hematocrit 43.2 % (37-47); Hemoglobin 14.2 g/dL (12.0-15.0); Lymphocyte # 1.82 X10^3/ul (0.83-4.51); Lymphocyte % 18.9 % (19-41); Mean Corp Hgb Conc 32.9 g/dL (32-36); Mean Corpuscular Hgb 30.7 pg (27.0-32.0); Mean Corpuscular Volume 93.5 fL (81-99); Mean Platelet Vol. 8.9 fl (6.2-12.0); Monocyte# 1.01 X10^3/uL; Monocyte% 10.5 % (0-10); NRBC Flagged by Analyzer 0 % (0-5); Neutrophil # 6.36 X10^3/uL (2.7-7.7); Platelet Count 438 K/mm3 (150-450); RBC Distribution Width CV 14.7 % (11.6-14.6); RBC Distribution Width SD 50.8 fl (35.1-43.9); Red Blood Count 4.62 M/mm3 (4.2-5.4); White Blood Count 9.6 K/mm3 (4.4-11.0)
[2020-10-13 13:06] LABS: Anion Gap 8 (5-15); BUN 20 mg/dL (7-18); BUN/Creat Ratio 25.5 RATIO (10-20); Calcium,Total 9.8 mg/dL (8.5-10.1); Chloride 102 mmol/L (98-107); Creatinine, Serum 0.78 mg/dL (0.55-1.02); EST Glomerular Filtration Rate 77 mL/min (>60); Est Glom Filt Rate - Afr Amer 93 mL/min (>60); Estimated Creatinine Clearance 52.36 ml/min; Glucose 119 mg/dL (74-106); Potassium 4.2 mmol/L (3.5-5.1); Sodium Level 138 mmol/L (136-145)
[2020-10-13 13:44] VITALS: BP 168/104; PULSE 93; RESP 20; O2SAT 99
[2020-10-13 13:49] LABS: Mucous, Urine 0 SEEN /hpf (<or=2+); Red Blood Cells-Urine 0 SEEN /hpf (0-5)
[2020-10-13 13:51] LABS: Color, Urine Yellow (Yellow); Glucose, Dipstick 1000 mg/dl (Normal); Ketone-Dipstick 5 mg/dl (Negative); Leukocyte Esterase-Dipstick 100 /ul (Negative); Nitrite-Dipstick Positive (Negative); Occult Blood-Urine Negative /ul (Negative); Protein-Dipstick Negative (Negative); Urine Bilirubin Dipstick Negative (Negative); Urine Clarity Clear (Clear); Urine Urobilinogen Normal (Normal)
[2020-10-13 14:02] LABS: Bacteria 2+ /hpf (None Seen); Squamous Epithelial Cells - UA 0-5 SEEN /hpf (5-10); White Blood Cells 10-25 SEEN /hpf (0-5)
[2020-10-13 14:39] VITALS: BP 159/84; PULSE 73; RESP 14; O2SAT 97
[2020-10-13] MEDS: HYDROcodone Bitartrate/Apap 5/325 Tablet PO (14:46)
== END 2020-10-13 14:57 | disposition home or self-care (01) ==
PROVIDERS: Emergency Provider Emergency Medicine; PCP Family Medicine
DX: S22.089A Unspecified fracture of T11-T12 vertebra, initial encounter for closed fracture (principal); X58.XXXA Exposure to other specified factors, initial encounter
CPT/HCPCS: 72128; 72131; 80048; 81001; 85025; 87086; 87088; 87186; 96360; 96361; 99285; J7030

== ENCOUNTER → 2020-10-14 15:38 | Outpatient (CLI) | payer MEDICARE, OTHER, SELFPAY ==
[2020-10-13 12:27] VITALS: BMI 36.3
--- NOTE | 2020-10-14 12:48 | BON_PTH ---
PATIENT: DANTE LOPEZ LOC: [facility] U#:[id number] AGE/SX: 79/F ROOM: RE10/14/[address]: Dr. Shay Bender MD : 1945 BED: DIS: SPEC #: [id number] RECD: 10/14/20 15:03 STATUS: RICKY TAB #: [id number] WHITNEY: 10/14/20 12:[address]: Shay Bender DEPT: SURGICAL PATHOLOGY RECD BY: Kirti Tarango ENTERED: 10/17/20 08:30 SP TYPE: Bone OTHR DR: Dr. Magdaleno Watkins MD [facility] Tissues: Vertebra, NOS Procedures: Decalcification bone/plaque Surgery Specimen Level V HEADER OPERATION: Kyphoplasty of T12 PRE-OP DIAGNOSIS: Compression fracture of lumbar spine TISSUE SUBMITTED: Bone of T12 MICROSCOPIC DIAGNOSIS T12 bone, biopsy: A piece of bone with callous formation and reactive changes, negative for malignancy, clinically compression fracture of lumbar spine. See comment. BEATRIS:kd 10/18/2020 COMMENT Hematopoietic marrow with trilineage hematopoiesis is also noted. Correlation with clinical, radiologic findings and appropriate follow up are necessary. MICROSCOPIC DESCRIPTION Slides are reviewed. GROSS DESCRIPTION Received is one container labeled with the patient's name and not further designated. The specimen consists of an elongated piece of diallo bone measuring 0.8 cm in length and 0.1 cm in diameter. The entire specimen is submitted in one cassette after decalcification. / BEATRIS:kd 10/17/20 TC:5 CPT: 37352, [id number]
== END ==
PROVIDERS: PCP Family Medicine; Visit Provider Anesthesiology Pain Medicine
DX: S32.009A Unspecified fracture of unspecified lumbar vertebra, initial encounter for closed fracture (principal)
CPT/HCPCS: 88305; 88307; 88311

== ENCOUNTER → 2020-10-18 17:36 | Outpatient (CLI) | payer MEDICARE, OTHER, SELFPAY ==
[2020-10-13 12:27] VITALS: BMI 36.3
[2020-10-18 18:02] LABS: Absolute Lymphocyte Count 1.33 X10^3/uL (0.83-4.51); Absolute Neutrophil Count 5.3 X10^3/uL (2.0-7.7); Basophil# 0.03 X10^3/uL; Basophil% 0.4 % (0-1); Eosinophil# 0.54 X10^3/uL; Eosinophils% 6.7 % (0-5); Hematocrit 41.6 % (37-47); Hemoglobin 13.8 g/dL (12.0-15.0); Lymphocyte # 1.33 X10^3/ul (0.83-4.51); Lymphocyte % 16.5 % (19-41); Mean Corp Hgb Conc 33.2 g/dL (32-36); Mean Corpuscular Hgb 30.9 pg (27.0-32.0); Mean Corpuscular Volume 93.3 fL (81-99); Mean Platelet Vol. 9.5 fl (6.2-12.0); Monocyte# 0.85 X10^3/uL; Monocyte% 10.5 % (0-10); NRBC Flagged by Analyzer 0 % (0-5); Neutrophil # 5.29 X10^3/uL (2.7-7.7); Neutrophil % 65.7 % (47-70); Platelet Count 438 K/mm3 (150-450); RBC Distribution Width CV 14.7 % (11.6-14.6); RBC Distribution Width SD 51.1 fl (35.1-43.9); Red Blood Count 4.46 M/mm3 (4.2-5.4); White Blood Count 8.1 K/mm3 (4.4-11.0)
[2020-10-18 18:45] LABS: ALB/GLOB Ratio 0.9 RATIO (0.9-2.4); AST(SGOT) 14 U/L (15-37); Alanine Aminotransfer ALT/SGPT 15 U/L (13-56); Albumin, Serum 3.5 g/dL (3.2-5.0); Alkaline Phosphatase 140 U/L (45-117); Anion Gap 9 (5-15); BUN 21 mg/dL (7-18); BUN/Creat Ratio 23.8 RATIO (10-20); Calcium,Total 9.3 mg/dL (8.5-10.1); Chloride 101 mmol/L (98-107); Creatinine, Serum 0.88 mg/dL (0.55-1.02); EST Glomerular Filtration Rate 67 mL/min (>60); Est Glom Filt Rate - Afr Amer 81 mL/min (>60); Globulin 3.8 g/dL (2.2-4.2); Glucose 193 mg/dL (74-106); Potassium 4.1 mmol/L (3.5-5.1); Protein, Total 7.3 g/dL (6.4-8.2); Sodium Level 134 mmol/L (136-145); Thyroid Stim Hormone (TSH) 0.78 uIU/mL (0.358-3.74)
[2020-10-19 09:58] LABS: Hepatitis C Antibody Non-Reactive (Nonreactive); Vitamin D,25 Hydroxy 68.9 ng/mL
== END ==
PROVIDERS: PCP Family Medicine; Referring Provider Family Medicine Geriatric Medicine; Visit Provider Family Medicine Geriatric Medicine
DX: E55.9 Vitamin D deficiency, unspecified (principal); R53.83 Other fatigue; Z13.89 Encounter for screening for other disorder
CPT/HCPCS: 36415; 80053; 82306; 84443; 85025; 86803

== ENCOUNTER → 2021-01-10 11:00 | Outpatient (CLI) | payer MEDICARE, OTHER, SELFPAY ==
[2021-01-10 12:05] LABS: Absolute Lymphocyte Count 1.34 X10^3/uL (0.83-4.51); Absolute Neutrophil Count 4.7 X10^3/uL (2.0-7.7); Basophil# 0.02 X10^3/uL; Basophil% 0.3 % (0-1); Eosinophil# 0.97 X10^3/uL; Eosinophils% 12.6 % (0-5); Hematocrit 42.4 % (37-47); Hemoglobin 14.2 g/dL (12.0-15.0); Lymphocyte # 1.34 X10^3/ul (0.83-4.51); Lymphocyte % 17.5 % (19-41); Mean Corp Hgb Conc 33.5 g/dL (32-36); Mean Corpuscular Hgb 31.8 pg (27.0-32.0); Mean Corpuscular Volume 95.1 fL (81-99); Mean Platelet Vol. 10.1 fl (6.2-12.0); Monocyte# 0.67 X10^3/uL; Monocyte% 8.7 % (0-10); NRBC Flagged by Analyzer 0 % (0-5); Neutrophil # 4.65 X10^3/uL (2.7-7.7); Neutrophil % 60.6 % (47-70); Platelet Count 345 K/mm3 (150-450); RBC Distribution Width CV 13.6 % (11.6-14.6); RBC Distribution Width SD 47.9 fl (35.1-43.9); Red Blood Count 4.46 M/mm3 (4.2-5.4); White Blood Count 7.7 K/mm3 (4.4-11.0)
[2021-01-10 12:31] LABS: Vitamin D,25 Hydroxy 76.1 ng/mL
[2021-01-10 12:35] LABS: Hemoglobin A1c 6.5 % (3.8-5.6)
[2021-01-10 12:51] LABS: ALB/GLOB Ratio 0.8 RATIO (0.9-2.4); AST(SGOT) 14 U/L (15-37); Alanine Aminotransfer ALT/SGPT 18 U/L (13-56); Albumin, Serum 3.3 g/dL (3.2-5.0); Alkaline Phosphatase 122 U/L (45-117); Anion Gap 10 (5-15); BUN 19 mg/dL (7-18); Calcium,Total 9.9 mg/dL (8.5-10.1); Chloride 104 mmol/L (98-107); Cholesterol 156 mg/dL (200); EST Glomerular Filtration Rate 65 mL/min (>60); Est Glom Filt Rate - Afr Amer 79 mL/min (>60); Globulin 4.1 g/dL (2.2-4.2); Glucose 188 mg/dL (74-106); High Density Lipoprotein 58 mg/dL; Magnesium 2.2 mg/dL (1.6-2.6); Microalbumin,Random Urine 6.8 mg/L (NO RANGE EST.); Microalbumin:Creatinine Ratio 12.3 mg/g CRE (<30 mg/g CRE); Potassium 4.3 mmol/L (3.5-5.1); Protein, Total 7.4 g/dL (6.4-8.2); Sodium Level 137 mmol/L (136-145); Triglycerides 108 mg/dL; Very Low Density Lipoprotein 22 mg/dL (5-40)
== END ==
PROVIDERS: PCP Family Medicine; Referring Provider Family Medicine; Visit Provider Family Medicine
DX: E11.65 Type 2 diabetes mellitus with hyperglycemia (principal); E11.69 Type 2 diabetes mellitus with other specified complication; E11.59 Type 2 diabetes mellitus with other circulatory complications; E55.9 Vitamin D deficiency, unspecified
CPT/HCPCS: 36415; 80053; 80061; 82043; 82306; 82570; 83036; 83735; 85025

== ENCOUNTER → 2021-04-05 | Outpatient (CLI) | payer MEDICARE, OTHER, SELFPAY | END | disposition home or self-care (01) | PROVIDERS: PCP Family Medicine; Referring Provider Family Medicine; Visit Provider Family Medicine | DX: R35.0 Frequency of micturition (principal) | CPT/HCPCS: 87077; 87086; 87088; 87186 ==

== ENCOUNTER 2021-05-08 09:16 | Outpatient (CLI) | payer MEDICARE, SELFPAY ==
[2021-05-08 10:02] LABS: Absolute Lymphocyte Count 1.78 X10^3/uL (0.83-4.51); Absolute Neutrophil Count 3.3 X10^3/uL (2.0-7.7); Basophil# 0.03 X10^3/uL; Basophil% 0.5 % (0-1); Eosinophil# 0.43 X10^3/uL; Eosinophils% 6.9 % (0-5); Hematocrit 42.2 % (37-47); Hemoglobin 14.1 g/dL (12.0-15.0); Lymphocyte # 1.78 X10^3/ul (0.83-4.51); Lymphocyte % 28.4 % (19-41); Mean Corp Hgb Conc 33.4 g/dL (32-36); Mean Corpuscular Hgb 30.6 pg (27.0-32.0); Mean Corpuscular Volume 91.5 fL (81-99); Mean Platelet Vol. 9.7 fl (6.2-12.0); Monocyte# 0.67 X10^3/uL; Monocyte% 10.7 % (0-10); NRBC Flagged by Analyzer 0 % (0-5); Neutrophil # 3.34 X10^3/uL (2.7-7.7); Neutrophil % 53.3 % (47-70); Platelet Count 330 K/mm3 (150-450); RBC Distribution Width CV 15.5 % (11.6-14.6); RBC Distribution Width SD 51.7 fl (35.1-43.9); Red Blood Count 4.61 M/mm3 (4.2-5.4); White Blood Count 6.3 K/mm3 (4.4-11.0)
[2021-05-08 11:26] LABS: ALB/GLOB Ratio 0.9 RATIO (0.9-2.4); AST(SGOT) 13 U/L (15-37); Alanine Aminotransfer ALT/SGPT 18 U/L (13-56); Albumin, Serum 3.4 g/dL (3.2-5.0); Alkaline Phosphatase 81 U/L (45-117); Anion Gap 6 (5-15); BUN 18 mg/dL (7-18); BUN/Creat Ratio 19.8 RATIO (10-20); Chloride 103 mmol/L (98-107); Cholesterol 148 mg/dL (200); Creatinine, Serum 0.91 mg/dL (0.55-1.02); EST Glomerular Filtration Rate 64 mL/min (>60); Est Glom Filt Rate - Afr Amer 78 mL/min (>60); Globulin 3.7 g/dL (2.2-4.2); Glucose 113 mg/dL (74-106); High Density Lipoprotein 60 mg/dL; Potassium 4.3 mmol/L (3.5-5.1); Protein, Total 7.1 g/dL (6.4-8.2); Sodium Level 138 mmol/L (136-145); Triglycerides 104 mg/dL; Very Low Density Lipoprotein 21 mg/dL (5-40)
[2021-05-08 13:11] LABS: Hemoglobin A1c 6.2 % (3.8-5.6)
[2021-05-08 13:16] LABS: Vitamin D,25 Hydroxy 62.2 ng/mL
== END 2021-05-08 23:59 | disposition short-term general hospital (02) ==
LOC: MTLAB 09:18
PROVIDERS: PCP Family Medicine; Referring Provider Family Medicine; Visit Provider Family Medicine
DX: E11.65 Type 2 diabetes mellitus with hyperglycemia (principal); E11.69 Type 2 diabetes mellitus with other specified complication; E55.9 Vitamin D deficiency, unspecified
CPT/HCPCS: 36415; 80053; 80061; 82306; 83036; 85025

== ENCOUNTER 2021-08-04 09:16 | Outpatient (CLI) | payer MEDICARE, SELFPAY ==
[2021-08-04 10:41] LABS: Absolute Lymphocyte Count 1.45 X10^3/uL (0.83-4.51); Absolute Neutrophil Count 3.7 X10^3/uL (2.0-7.7); Basophil# 0.03 X10^3/uL; Basophil% 0.5 % (0-1); Eosinophil# 0.25 X10^3/uL; Eosinophils% 4.2 % (0-5); Hematocrit 43.3 % (37-47); Hemoglobin 14.2 g/dL (12.0-15.0); Lymphocyte # 1.45 X10^3/ul (0.83-4.51); Lymphocyte % 24.1 % (19-41); Mean Corp Hgb Conc 32.8 g/dL (32-36); Mean Corpuscular Hgb 30.7 pg (27.0-32.0); Mean Corpuscular Volume 93.7 fL (81-99); Mean Platelet Vol. 9.9 fl (6.2-12.0); Monocyte# 0.58 X10^3/uL; Monocyte% 9.7 % (0-10); NRBC Flagged by Analyzer 0 % (0-5); Neutrophil # 3.69 X10^3/uL (2.7-7.7); Neutrophil % 61.3 % (47-70); Platelet Count 346 K/mm3 (150-450); RBC Distribution Width CV 14.1 % (11.6-14.6); RBC Distribution Width SD 48.8 fl (35.1-43.9); Red Blood Count 4.62 M/mm3 (4.2-5.4)
[2021-08-04 11:11] LABS: Vitamin D,25 Hydroxy 60.6 ng/mL
[2021-08-04 11:13] LABS: AST(SGOT) 14 U/L (15-37); Alanine Aminotransfer ALT/SGPT 19 U/L (13-56); Albumin, Serum 3.6 g/dL (3.2-5.0); Alkaline Phosphatase 93 U/L (45-117); Anion Gap 6 (5-15); BUN 17 mg/dL (7-18); Calcium,Total 9.2 mg/dL (8.5-10.1); Chloride 104 mmol/L (98-107); Cholesterol 155 mg/dL (200); Creatinine, Serum 0.85 mg/dL (0.55-1.02); EST Glomerular Filtration Rate 69 mL/min (>60); Est Glom Filt Rate - Afr Amer 84 mL/min (>60); Globulin 3.7 g/dL (2.2-4.2); Glucose 113 mg/dL (74-106); High Density Lipoprotein 60 mg/dL; Potassium 3.9 mmol/L (3.5-5.1); Protein, Total 7.3 g/dL (6.4-8.2); Sodium Level 138 mmol/L (136-145); Thyroid Stim Hormone (TSH) 1.13 uIU/mL (0.358-3.74); Triglycerides 124 mg/dL; Very Low Density Lipoprotein 25 mg/dL (5-40)
[2021-08-04 11:37] LABS: Hemoglobin A1c 6.6 % (3.8-5.6)
== END 2021-08-04 23:59 | disposition home or self-care (01) ==
LOC: MTLAB 09:17
PROVIDERS: PCP Family Medicine; Referring Provider Family Medicine; Visit Provider Family Medicine
DX: E11.59 Type 2 diabetes mellitus with other circulatory complications (principal); E11.69 Type 2 diabetes mellitus with other specified complication; E55.9 Vitamin D deficiency, unspecified
CPT/HCPCS: 36415; 80053; 80061; 82306; 83036; 84443; 85025

== ENCOUNTER → 2021-09-19 | Outpatient (CLI) | payer MEDICARE, SELFPAY ==
[2021-09-19 15:33] LABS: Absolute Lymphocyte Count 1.62 X10^3/uL (0.83-4.51); Absolute Neutrophil Count 4.5 X10^3/uL (2.0-7.7); Basophil# 0.02 X10^3/uL; Basophil% 0.3 % (0-1); Eosinophil# 0.25 X10^3/uL; Eosinophils% 3.6 % (0-5); Hematocrit 44.1 % (37-47); Hemoglobin 14.5 g/dL (12.0-15.0); Lymphocyte # 1.62 X10^3/ul (0.83-4.51); Mean Corp Hgb Conc 32.9 g/dL (32-36); Mean Corpuscular Hgb 30.9 pg (27.0-32.0); Mean Corpuscular Volume 93.8 fL (81-99); Mean Platelet Vol. 10.7 fl (6.2-12.0); Monocyte# 0.65 X10^3/uL; Monocyte% 9.2 % (0-10); NRBC Flagged by Analyzer 0 % (0-5); Neutrophil # 4.49 X10^3/uL (2.7-7.7); Neutrophil % 63.8 % (47-70); Platelet Count 347 K/mm3 (150-450); RBC Distribution Width CV 14.5 % (11.6-14.6); RBC Distribution Width SD 50.1 fl (35.1-43.9)
[2021-09-19 15:43] LABS: AST(SGOT) 15 U/L (15-37); Alanine Aminotransfer ALT/SGPT 21 U/L (13-56); Albumin, Serum 3.8 g/dL (3.2-5.0); Alkaline Phosphatase 76 U/L (45-117); Anion Gap 9 (5-15); BUN 15 mg/dL (7-18); BUN/Creat Ratio 14.7 RATIO (10-20); Calcium,Total 9.6 mg/dL (8.5-10.1); Chloride 101 mmol/L (98-107); Creatinine, Serum 1.02 mg/dL (0.55-1.02); EST Glomerular Filtration Rate 56 mL/min (>60); Est Glom Filt Rate - Afr Amer 68 mL/min (>60); Globulin 3.9 g/dL (2.2-4.2); Glucose 154 mg/dL (74-106); Potassium 3.7 mmol/L (3.5-5.1); Protein, Total 7.7 g/dL (6.4-8.2); Sodium Level 135 mmol/L (136-145)
[2021-09-19 15:54] LABS: Hepatitis B Surface Antibody Non-Reactive
[2021-09-21 08:10] LABS: HEPATITIS B SURFACE AG Negative (Negative); Hep C Antibodies <0.1 s/co ratio (0.0-0.9); Hepatitis A IgM Antibody Negative (Negative); Hepatitis B Core AB IgM Negative (Negative)
[2021-09-21 09:33] LABS: Hepatitis A AB, Total Negative (Negative)
== END | disposition home or self-care (01) ==
LOC: MTLAB 12:02
PROVIDERS: PCP Family Medicine; Referring Provider Dermatology Pediatric Dermatology; Visit Provider Dermatology Pediatric Dermatology
DX: L66.1 Lichen planopilaris (principal); L82.1 Other seborrheic keratosis; L72.0 Epidermal cyst; D18.01 Hemangioma of skin and subcutaneous tissue; L91.8 Other hypertrophic disorders of the skin; Z71.89 Other specified counseling
CPT/HCPCS: 36415; 80053; 80074; 85025; 86706; 86708

== ENCOUNTER → 2021-10-16 | Outpatient (CLI) | payer MEDICARE, SELFPAY ==
--- NOTE | 2021-10-16 11:56 | BI_ITS ---
MAMMOGRAPHY - BILATERAL SCREENING REASON FOR EXAM: Female, 76 years old. Routine annual screening examination. PERTINENT HISTORY: Aunt with breast cancer. TECHNIQUE: Digital bilateral breast beth (3D mammographic acquisition) in the CC and MLO projections. 2-D mediolateral oblique (MLO) and craniocaudad (CC) views of both breasts were obtained. CAD: Full Field Digital Mammography with Computer Added Detection was performed. COMPARISON: 04/02/2019, 04/01/2018, 03/30/2017, 03/14/2016. FINDINGS: Breast Composition: There are scattered areas of fibroglandular density. There are no dominant masses or suspicious calcifications. Stable benign-appearing small axillary nodes. Stable left upper outer breast nodule suggestive of a small lymph node. No other significant abnormalities are identified. There has been no significant change since the prior study. BI/SCRN MAMM (CAD)W/BETH BILAT IMPRESSION: Stable bilateral screening mammogram. Yearly follow-up mammogram recommended. (A) ASSESSMENT CATEGORY: BIRADS Category 2: Benign. A letter regarding these results will be sent to the patient by the facility within 30 days. Approximately 10% of breast cancers are not detected by mammography. A normal mammogram should not delay biopsy of a clinically suspicious abnormality. [id number] Electronically Signed: Bo Luke, at 14:07 EDT ,
== END | disposition home or self-care (01) ==
LOC: OPBI 11:55
PROVIDERS: PCP Family Medicine; Visit Provider Family Medicine
DX: Z12.31 Encounter for screening mammogram for malignant neoplasm of breast (principal)
CPT/HCPCS: 77063; 77067

== ENCOUNTER → 2021-11-02 | Outpatient (CLI) | payer MEDICARE, SELFPAY ==
[2021-11-02 09:59] LABS: Absolute Lymphocyte Count 2.05 X10^3/uL (0.83-4.51); Absolute Neutrophil Count 3.5 X10^3/uL (2.0-7.7); Basophil# 0.03 X10^3/uL; Basophil% 0.4 % (0-1); Eosinophil# 0.68 X10^3/uL; Eosinophils% 9.7 % (0-5); Hemoglobin 14.2 g/dL (12.0-15.0); Lymphocyte # 2.05 X10^3/ul (0.83-4.51); Lymphocyte % 29.1 % (19-41); Mean Corp Hgb Conc 33.8 g/dL (32-36); Mean Corpuscular Hgb 31.5 pg (27.0-32.0); Mean Corpuscular Volume 93.1 fL (81-99); Mean Platelet Vol. 10.8 fl (6.2-12.0); Monocyte# 0.77 X10^3/uL; Monocyte% 10.9 % (0-10); NRBC Flagged by Analyzer 0 % (0-5); Neutrophil % 49.8 % (47-70); Platelet Count 313 K/mm3 (150-450); RBC Distribution Width CV 14.6 % (11.6-14.6); RBC Distribution Width SD 50.4 fl (35.1-43.9); Red Blood Count 4.51 M/mm3 (4.2-5.4)
[2021-11-02 10:17] LABS: AST(SGOT) 14 U/L (15-37); Alanine Aminotransfer ALT/SGPT 14 U/L (13-56); Albumin, Serum 3.5 g/dL (3.2-5.0); Alkaline Phosphatase 73 U/L (45-117); Anion Gap 8 (5-15); BUN 18 mg/dL (7-18); BUN/Creat Ratio 18.8 RATIO (10-20); Calcium,Total 9.3 mg/dL (8.5-10.1); Chloride 106 mmol/L (98-107); Cholesterol 148 mg/dL (200); Creatinine, Serum 0.96 mg/dL (0.55-1.02); EST Glomerular Filtration Rate 61 mL/min (>60); Est Glom Filt Rate - Afr Amer 73 mL/min (>60); Globulin 3.5 g/dL (2.2-4.2); Glucose 165 mg/dL (74-106); High Density Lipoprotein 52 mg/dL; Sodium Level 138 mmol/L (136-145); Triglycerides 138 mg/dL; Very Low Density Lipoprotein 28 mg/dL (5-40)
[2021-11-02 10:25] LABS: Vitamin D,25 Hydroxy 60.1 ng/mL
[2021-11-02 10:38] LABS: Hemoglobin A1c 7.1 % (3.8-5.6)
[2021-11-02 11:17] LABS: Microalbumin,Random Urine 6.7 mg/L (NO RANGE EST.); Microalbumin:Creatinine Ratio 7.8 mg/g CRE (<30 mg/g CRE)
== END | disposition home or self-care (01) ==
LOC: MTLAB 07:52
PROVIDERS: PCP Family Medicine; Referring Provider Family Medicine; Visit Provider Family Medicine
DX: E11.65 Type 2 diabetes mellitus with hyperglycemia (principal); E11.69 Type 2 diabetes mellitus with other specified complication; E55.9 Vitamin D deficiency, unspecified
CPT/HCPCS: 36415; 80053; 80061; 82043; 82306; 82570; 83036; 85025

== ENCOUNTER → 2021-11-09 | Outpatient (CLI) | payer MEDICARE, SELFPAY | END | disposition home or self-care (01) | LOC: LABSPEC 16:20 | PROVIDERS: PCP Family Medicine; Referring Provider Family Medicine; Visit Provider Family Medicine | DX: N39.0 Urinary tract infection, site not specified (principal) | CPT/HCPCS: 87077; 87086; 87088; 87186 ==

== ENCOUNTER → 2021-11-16 | Outpatient (CLI) | payer MEDICARE, SELFPAY ==
--- NOTE | 2021-11-16 15:25 | US_ITS ---
EXAM: US PELVIS TRANSABDOMINAL, COMPLETE CLINICAL INDICATION: prolapse TECHNIQUE: Transabdominal pelvic ultrasound was performed with grayscale and color Doppler imaging. This report was created using [employer] report [employer] technology. COMPARISON: None. FINDINGS: UTERUS/CERVIX: The uterus measures 6.7 x 2.8 x 5.1 cm. The endometrium measures 7 mm. There is a cystic area within the endometrium. Within the fundus of the uterus there is an echogenic focus that measures 1.4 x 1.5 x 1.4 cm compatible with a uterine fibroid. On the left ovary is not visualized. Anteverted. RIGHT OVARY: The right ovary. Blood flow is present in the right ovary. LEFT OVARY: See above. FREE FLUID: None. BLADDER: Unremarkable as visualized. Wall is normal thickness for degree of distention. US/Transvaginal Non- IMPRESSION: Cystic structure within the endometrium. There is also echogenic structure within the uterus compatible with a fibroid. Neither ovary was visualized on the study. Electronically Signed: Jeovany Shipley MD at 17:04 EDT ,
--- NOTE | 2021-11-16 15:25 | US_ITS ---
EXAM: US PELVIS TRANSABDOMINAL, COMPLETE CLINICAL INDICATION: prolapse TECHNIQUE: Transabdominal pelvic ultrasound was performed with grayscale and color Doppler imaging. This report was created using [employer] report [employer] technology. COMPARISON: None. FINDINGS: UTERUS/CERVIX: The uterus measures 6.7 x 2.8 x 5.1 cm. The endometrium measures 7 mm. There is a cystic area within the endometrium. Within the fundus of the uterus there is an echogenic focus that measures 1.4 x 1.5 x 1.4 cm compatible with a uterine fibroid. On the left ovary is not visualized. Anteverted. RIGHT OVARY: The right ovary. Blood flow is present in the right ovary. LEFT OVARY: See above. FREE FLUID: None. BLADDER: Unremarkable as visualized. Wall is normal thickness for degree of distention. US/Pelvic (Non ) IMPRESSION: Cystic structure within the endometrium. There is also echogenic structure within the uterus compatible with a fibroid. Neither ovary was visualized on the study. Electronically Signed: Jeovany Shipley MD at 17:04 EDT ,
== END | disposition home or self-care (01) ==
LOC: US 15:21
PROVIDERS: PCP Family Medicine; Referring Provider Obstetrics & Gynecology; Visit Provider Obstetrics & Gynecology
DX: N81.2 Incomplete uterovaginal prolapse (principal)
CPT/HCPCS: 76830; 76856

== ENCOUNTER → 2022-01-26 | Outpatient (CLI) | payer MEDICARE, SELFPAY ==
[2022-01-26 09:59] LABS: Absolute Lymphocyte Count 2.05 X10^3/uL (0.83-4.51); Absolute Neutrophil Count 2.4 X10^3/uL (2.0-7.7); Basophil# 0.03 X10^3/uL; Basophil% 0.5 % (0-1); Eosinophil# 0.39 X10^3/uL; Hematocrit 41.3 % (37-47); Hemoglobin 13.8 g/dL (12.0-15.0); Lymphocyte # 2.05 X10^3/ul (0.83-4.51); Lymphocyte % 36.9 % (19-41); Mean Corp Hgb Conc 33.4 g/dL (32-36); Mean Corpuscular Hgb 31.8 pg (27.0-32.0); Mean Corpuscular Volume 95.2 fL (81-99); Mean Platelet Vol. 10.3 fl (6.2-12.0); Monocyte# 0.69 X10^3/uL; Monocyte% 12.4 % (0-10); NRBC Flagged by Analyzer 0 % (0-5); Neutrophil # 2.39 X10^3/uL (2.7-7.7); Platelet Count 317 K/mm3 (150-450); RBC Distribution Width CV 14.1 % (11.6-14.6); RBC Distribution Width SD 49.2 fl (35.1-43.9); Red Blood Count 4.34 M/mm3 (4.2-5.4); White Blood Count 5.6 K/mm3 (4.4-11.0)
[2022-01-26 10:36] LABS: Vitamin D,25 Hydroxy 58.2 ng/mL
[2022-01-26 10:39] LABS: ALB/GLOB Ratio 0.9 RATIO (0.9-2.4); AST(SGOT) 20 U/L (15-37); Alanine Aminotransfer ALT/SGPT 21 U/L (13-56); Albumin, Serum 3.3 g/dL (3.2-5.0); Alkaline Phosphatase 81 U/L (45-117); Anion Gap 10 (5-15); BUN 15 mg/dL (7-18); Calcium,Total 9.1 mg/dL (8.5-10.1); Chloride 108 mmol/L (98-107); Cholesterol 138 mg/dL (200); Creatinine, Serum 0.83 mg/dL (0.55-1.02); EST Glomerular Filtration Rate 71 mL/min (>60); Est Glom Filt Rate - Afr Amer 86 mL/min (>60); Globulin 3.7 g/dL (2.2-4.2); Glucose 170 mg/dL (74-106); High Density Lipoprotein 55 mg/dL; Sodium Level 140 mmol/L (136-145); Triglycerides 116 mg/dL; Very Low Density Lipoprotein 23 mg/dL (5-40)
== END | disposition home or self-care (01) ==
LOC: MTLAB 08:58
PROVIDERS: PCP Family Medicine; Referring Provider Family Medicine; Visit Provider Family Medicine
DX: E11.65 Type 2 diabetes mellitus with hyperglycemia (principal); M81.0 Age-related osteoporosis without current pathological fracture
CPT/HCPCS: 36415; 80053; 80061; 82306; 83036; 85025

== ENCOUNTER → 2022-03-10 | Outpatient (CLI) | payer MEDICARE, SELFPAY ==
[2022-03-10 09:33] LABS: Absolute Lymphocyte Count 1.78 X10^3/uL (0.83-4.51); Absolute Neutrophil Count 2.9 X10^3/uL (2.0-7.7); Basophil# 0.03 X10^3/uL; Basophil% 0.5 % (0-1); Eosinophils% 3.5 % (0-5); Hematocrit 41.5 % (37-47); Hemoglobin 13.7 g/dL (12.0-15.0); Lymphocyte # 1.78 X10^3/ul (0.83-4.51); Lymphocyte % 31.3 % (19-41); Mean Corpuscular Hgb 31.5 pg (27.0-32.0); Mean Corpuscular Volume 95.4 fL (81-99); Mean Platelet Vol. 9.8 fl (6.2-12.0); Monocyte# 0.81 X10^3/uL; Monocyte% 14.3 % (0-10); NRBC Flagged by Analyzer 0 % (0-5); Neutrophil # 2.85 X10^3/uL (2.7-7.7); Neutrophil % 50.2 % (47-70); Platelet Count 341 K/mm3 (150-450); RBC Distribution Width CV 13.8 % (11.6-14.6); RBC Distribution Width SD 48.9 fl (35.1-43.9); Red Blood Count 4.35 M/mm3 (4.2-5.4); White Blood Count 5.7 K/mm3 (4.4-11.0)
[2022-03-10 09:58] LABS: AST(SGOT) 14 U/L (15-37); Alanine Aminotransfer ALT/SGPT 16 U/L (13-56); Albumin, Serum 3.7 g/dL (3.2-5.0); Alkaline Phosphatase 75 U/L (45-117); Anion Gap 7 (5-15); BUN 20 mg/dL (7-18); BUN/Creat Ratio 21.5 RATIO (10-20); Calcium,Total 9.5 mg/dL (8.5-10.1); Chloride 103 mmol/L (98-107); Cholesterol 148 mg/dL (200); Creatinine, Serum 0.93 mg/dL (0.55-1.02); EST Glomerular Filtration Rate 63 mL/min (>60); Est Glom Filt Rate - Afr Amer 76 mL/min (>60); Globulin 3.7 g/dL (2.2-4.2); Glucose 160 mg/dL (74-106); High Density Lipoprotein 58 mg/dL; Potassium 4.2 mmol/L (3.5-5.1); Protein, Total 7.4 g/dL (6.4-8.2); Sodium Level 136 mmol/L (136-145); Triglycerides 132 mg/dL; Very Low Density Lipoprotein 26 mg/dL (5-40)
[2022-03-10 10:04] LABS: Microalbumin,Random Urine 8.6 mg/L (NO RANGE EST.); Microalbumin:Creatinine Ratio 10.9 mg/g CRE (<30 mg/g CRE)
[2022-03-12 09:37] LABS: Vitamin D,25 Hydroxy 62.2 ng/mL
== END | disposition home or self-care (01) ==
LOC: LAB 09:01
PROVIDERS: PCP Family Medicine; Visit Provider Family Medicine
DX: E11.65 Type 2 diabetes mellitus with hyperglycemia (principal); E11.69 Type 2 diabetes mellitus with other specified complication; E55.9 Vitamin D deficiency, unspecified
CPT/HCPCS: 36415; 80053; 80061; 82043; 82306; 82570; 85025

== ENCOUNTER → 2022-04-04 | Outpatient (CLI) | payer MEDICARE, SELFPAY ==
--- NOTE | 2022-04-04 09:55 | BD_ITS ---
STUDY: DUAL ENERGY X-RAY ABSORPTIOMETRY / DXA REASON FOR EXAM: Female, 76 years old. 733.00OsteoporosisBONE DENSITY REASON FOR EXAM TECHNIQUE: Bone Mineral Density (BMD) measurements of lumbar spine and bilateral hips were obtained. COMPARISON: Comparison is made with prior study dated 03/17/2019. FINDINGS: Lumbar Spine (L1-L4): g/cm2 (1.010) / T-score (-0.8) / Z-score (1.7) Findings are suggestive of normal bone density with a low fracture risk. Left Femur Total: g/cm2 (1.005) / T-score (0.5) / Z-score (2.3) Left Femoral Neck: g/cm2 (0.704) / T-score (-1.3) / Z-score (0.8) Right Femur Total: g/cm2 (1.035) / T-score (0.8) / Z-score (2.5) Right Femoral Neck: g/cm2 (0.747) / T-score (-0.9) / Z-score (1.1) The T-Scores on the most recent prior examination were: Lumbar Spine (L1-L4): There has been worsening of bone density since the previous examination. Left Femur Total: which represents an improvement of 8.4%. Right Femur Total: which represents an improvement of 6.2%. BD/Dexa Bone Density Study IMPRESSION: The patient is considered osteopenic as outlined below according to World Tomas Organization (WHO) criteria with a low fracture risk. There has been improvement of bone density since the previous examination. Reference Information: The T-score is the number of standard deviations above or below the standard which is normal for young adults at their peak bone mineral density. The World Health Organization (WHO) interprets the T-scores as follows: Above -1 Normal bone density Between -1 and -2.5 Osteopenia Equal to / or below -2.5 Osteoporosis As a practical clinical guideline, osteopenia may be graded as follows: Mild -1 through -1.5 Moderate -1.6 through -2.0 Severe -2.1 through -2.4 The Z-score is the number of standard deviations above or below age-matched controls. A Z-score of less than -1.5 would be considered abnormal. References: 1. NIH Osteoporosis and Related Bone Diseases www osteo.org 2. International Society for Clinical Densitometry www iscd.org 3. National Osteoporosis Foundation www nof.org Electronically Signed: Bienvenido Casper MD at 15:11 EST ,
== END | disposition home or self-care (01) ==
LOC: OPBD 09:46
PROVIDERS: PCP Family Medicine; Visit Provider Family Medicine
DX: M85.80 Other specified disorders of bone density and structure, unspecified site (principal); M81.0 Age-related osteoporosis without current pathological fracture
CPT/HCPCS: 77080

== ENCOUNTER → 2022-07-20 | Outpatient (CLI) | payer MEDICARE, SELFPAY ==
[2022-07-20 10:04] LABS: Absolute Lymphocyte Count 2.18 X10^3/uL (0.83-4.51); Absolute Neutrophil Count 3.1 X10^3/uL (2.0-7.7); Basophil# 0.04 X10^3/uL; Basophil% 0.6 % (0-1); Eosinophil# 0.25 X10^3/uL; Eosinophils% 4.1 % (0-5); Hematocrit 45.1 % (37-47); Hemoglobin 14.5 g/dL (12.0-15.0); Lymphocyte # 2.18 X10^3/ul (0.83-4.51); Lymphocyte % 35.3 % (19-41); Mean Corp Hgb Conc 32.2 g/dL (32-36); Mean Corpuscular Hgb 30.7 pg (27.0-32.0); Mean Corpuscular Volume 95.6 fL (81-99); Mean Platelet Vol. 10.7 fl (6.2-12.0); Monocyte# 0.58 X10^3/uL; Monocyte% 9.4 % (0-10); NRBC Flagged by Analyzer 0 % (0-5); Neutrophil % 50.3 % (47-70); Platelet Count 337 K/mm3 (150-450); RBC Distribution Width CV 14.2 % (11.6-14.6); RBC Distribution Width SD 50.3 fl (35.1-43.9); Red Blood Count 4.72 M/mm3 (4.2-5.4); White Blood Count 6.2 K/mm3 (4.4-11.0)
[2022-07-20 10:23] LABS: ALB/GLOB Ratio 0.9 RATIO (0.9-2.4); AST(SGOT) 12 U/L (15-37); Alanine Aminotransfer ALT/SGPT 16 U/L (13-56); Albumin, Serum 3.6 g/dL (3.2-5.0); Alkaline Phosphatase 73 U/L (45-117); Anion Gap 10 (5-15); BUN 23 mg/dL (7-18); BUN/Creat Ratio 23.4 RATIO (10-20); Calcium,Total 9.3 mg/dL (8.5-10.1); Chloride 100 mmol/L (98-107); Cholesterol 151 mg/dL (200); Creatinine, Serum 0.98 mg/dL (0.55-1.02); EST Glomerular Filtration Rate 59 mL/min (>60); Est Glom Filt Rate - Afr Amer 71 mL/min (>60); Globulin 3.8 g/dL (2.2-4.2); Glucose 176 mg/dL (74-106); High Density Lipoprotein 63 mg/dL; Potassium 3.9 mmol/L (3.5-5.1); Protein, Total 7.4 g/dL (6.4-8.2); Sodium Level 137 mmol/L (136-145); Triglycerides 108 mg/dL; Very Low Density Lipoprotein 22 mg/dL (5-40)
[2022-07-20 10:30] LABS: Hemoglobin A1c 7.4 % (3.8-5.6)
[2022-07-20 11:44] LABS: Vitamin D,25 Hydroxy 65.7 ng/mL
== END | disposition home or self-care (01) ==
LOC: MTLAB 08:58
PROVIDERS: PCP Family Medicine; Referring Provider Family Medicine; Visit Provider Family Medicine
DX: E11.65 Type 2 diabetes mellitus with hyperglycemia (principal); E55.9 Vitamin D deficiency, unspecified
CPT/HCPCS: 36415; 80053; 80061; 82306; 83036; 85025

== ENCOUNTER → 2022-10-05 | Outpatient (CLI) | payer MEDICARE, SELFPAY ==
[2022-10-05 12:26] LABS: Absolute Lymphocyte Count 1.34 X10^3/uL (0.83-4.51); Absolute Neutrophil Count 3.5 X10^3/uL (2.0-7.7); Basophil# 0.02 X10^3/uL; Basophil% 0.3 % (0-1); Eosinophil# 0.29 X10^3/uL; Hematocrit 45.2 % (37-47); Hemoglobin 14.5 g/dL (12.0-15.0); Lymphocyte # 1.34 X10^3/ul (0.83-4.51); Lymphocyte % 23.3 % (19-41); Mean Corp Hgb Conc 32.1 g/dL (32-36); Mean Corpuscular Hgb 30.6 pg (27.0-32.0); Mean Corpuscular Volume 95.4 fL (81-99); Mean Platelet Vol. 10.6 fl (6.2-12.0); Monocyte% 10.4 % (0-10); NRBC Flagged by Analyzer 0 % (0-5); Neutrophil # 3.49 X10^3/uL (2.7-7.7); Neutrophil % 60.8 % (47-70); Platelet Count 358 K/mm3 (150-450); RBC Distribution Width SD 48.8 fl (35.1-43.9); Red Blood Count 4.74 M/mm3 (4.2-5.4); White Blood Count 5.8 K/mm3 (4.4-11.0)
[2022-10-05 13:25] LABS: Vitamin D,25 Hydroxy 63.9 ng/mL
[2022-10-05 13:31] LABS: ALB/GLOB Ratio 0.9 RATIO (0.9-2.4); AST(SGOT) 12 U/L (15-37); Alanine Aminotransfer ALT/SGPT 17 U/L (13-56); Albumin, Serum 3.6 g/dL (3.2-5.0); Alkaline Phosphatase 75 U/L (45-117); Anion Gap 7 (5-15); BUN 23 mg/dL (7-18); BUN/Creat Ratio 23.4 RATIO (10-20); Calcium,Total 9.5 mg/dL (8.5-10.1); Chloride 103 mmol/L (98-107); Cholesterol 156 mg/dL (200); Creatinine, Serum 0.98 mg/dL (0.55-1.02); EST Glomerular Filtration Rate 59 mL/min (>60); Est Glom Filt Rate - Afr Amer 71 mL/min (>60); Globulin 3.9 g/dL (2.2-4.2); Glucose 151 mg/dL (74-106); High Density Lipoprotein 70 mg/dL; Potassium 4.3 mmol/L (3.5-5.1); Protein, Total 7.5 g/dL (6.4-8.2); Sodium Level 137 mmol/L (136-145); Triglycerides 68 mg/dL; Very Low Density Lipoprotein 14 mg/dL (5-40)
[2022-10-05 13:54] LABS: Hemoglobin A1c 7.1 % (3.8-5.6)
== END | disposition home or self-care (01) ==
LOC: MTLAB 10:11
PROVIDERS: PCP Family Medicine; Referring Provider Family Medicine; Visit Provider Family Medicine
DX: E11.65 Type 2 diabetes mellitus with hyperglycemia (principal); E55.9 Vitamin D deficiency, unspecified
CPT/HCPCS: 36415; 80053; 80061; 82306; 83036; 85025

== ENCOUNTER → 2022-10-22 | Outpatient (CLI) | payer MEDICARE, SELFPAY ==
--- NOTE | 2022-10-22 10:53 | BI_ITS ---
MAMMOGRAPHY - BILATERAL SCREENING REASON FOR EXAM: Female, 77 years old. Routine annual screening examination. PERTINENT HISTORY: Non-contributory. TECHNIQUE: Digital bilateral breast beth (3D mammographic acquisition) in the CC and MLO projections. 2-D mediolateral oblique (MLO) and craniocaudad (CC) views of both breasts were obtained. CAD: Full Field Digital Mammography with Computer Added Detection was performed. COMPARISON: Comparison is made with prior study dated October 16, 2021 and April 02, 2019. FINDINGS: Breast Composition: There are scattered areas of fibroglandular density. There are no dominant masses or suspicious calcifications. No other significant abnormalities are identified. There has been no significant change since the prior study. BI/SCRN MAMM (CAD)W/BETH BILAT IMPRESSION: Stable bilateral screening mammogram. Yearly follow-up mammogram recommended. (A) ASSESSMENT CATEGORY: BIRADS Category 1: Negative. A letter regarding these results will be sent to the patient by the facility within 30 days. Approximately 10% of breast cancers are not detected by mammography. A normal mammogram should not delay biopsy of a clinically suspicious abnormality. [id number] Electronically Signed: Bienvenido Casper MD at 12:19 EDT ,
== END | disposition home or self-care (01) ==
LOC: OPBI 10:52
PROVIDERS: PCP Family Medicine; Referring Provider Family Medicine; Visit Provider Family Medicine
DX: Z12.31 Encounter for screening mammogram for malignant neoplasm of breast (principal)
CPT/HCPCS: 77063; 77067

== ENCOUNTER → 2023-01-11 | Outpatient (CLI) | payer MEDICARE, SELFPAY | END | disposition home or self-care (01) | LOC: LABSPEC 15:05 | PROVIDERS: PCP Family Medicine; Referring Provider Family Medicine; Visit Provider Family Medicine | DX: N39.0 Urinary tract infection, site not specified (principal) | CPT/HCPCS: 87086; 87088; 87186 ==

== ENCOUNTER → 2023-02-19 | Outpatient (CLI) | payer MEDICARE, SELFPAY ==
[2023-02-19 12:31] LABS: Absolute Lymphocyte Count 2.03 X10^3/uL (0.83-4.51); Absolute Neutrophil Count 3.5 X10^3/uL (2.0-7.7); Basophil# 0.03 X10^3/uL; Basophil% 0.5 % (0-1); Eosinophil# 0.44 X10^3/uL; Eosinophils% 6.6 % (0-5); Hematocrit 43.9 % (37-47); Hemoglobin 14.2 g/dL (12.0-15.0); Lymphocyte # 2.03 X10^3/ul (0.83-4.51); Lymphocyte % 30.6 % (19-41); Mean Corp Hgb Conc 32.3 g/dL (32-36); Mean Corpuscular Hgb 31.3 pg (27.0-32.0); Mean Corpuscular Volume 96.9 fL (81-99); Mean Platelet Vol. 10.6 fl (6.2-12.0); Monocyte# 0.64 X10^3/uL; Monocyte% 9.6 % (0-10); NRBC Flagged by Analyzer 0 % (0-5); Neutrophil # 3.48 X10^3/uL (2.7-7.7); Neutrophil % 52.4 % (47-70); Platelet Count 359 K/mm3 (150-450); RBC Distribution Width CV 14.6 % (11.6-14.6); RBC Distribution Width SD 51.8 fl (35.1-43.9); Red Blood Count 4.53 M/mm3 (4.2-5.4); White Blood Count 6.6 K/mm3 (4.4-11.0)
[2023-02-19 12:59] LABS: Vitamin D,25 Hydroxy 58.1 ng/mL
[2023-02-19 13:27] LABS: AST(SGOT) 15 U/L (15-37); Alanine Aminotransfer ALT/SGPT 21 U/L (13-56); Albumin, Serum 3.6 g/dL (3.2-5.0); Alkaline Phosphatase 71 U/L (45-117); Anion Gap 7 (5-15); BUN 20 mg/dL (7-18); BUN/Creat Ratio 23.4 RATIO (10-20); Calcium,Total 9.6 mg/dL (8.5-10.1); Chloride 103 mmol/L (98-107); Cholesterol 152 mg/dL (200); Creatinine, Serum 0.86 mg/dL (0.55-1.02); EST Glomerular Filtration Rate 69 mL/min (>60); Est Glom Filt Rate - Afr Amer 83 mL/min (>60); Globulin 3.6 g/dL (2.2-4.2); Glucose 149 mg/dL (74-106); High Density Lipoprotein 61 mg/dL; Potassium 4.1 mmol/L (3.5-5.1); Protein, Total 7.2 g/dL (6.4-8.2); Sodium Level 136 mmol/L (136-145); Triglycerides 129 mg/dL; Very Low Density Lipoprotein 26 mg/dL (5-40)
== END | disposition home or self-care (01) ==
LOC: MTLAB 09:49
PROVIDERS: PCP Family Medicine; Referring Provider Family Medicine; Visit Provider Family Medicine
DX: E11.65 Type 2 diabetes mellitus with hyperglycemia (principal); E55.9 Vitamin D deficiency, unspecified
CPT/HCPCS: 36415; 80053; 80061; 82306; 83036; 85025

== ENCOUNTER → 2023-04-30 | Outpatient (CLI) | payer MEDICARE, SELFPAY ==
--- OUTSIDE RECORDS SUMMARY | 2023-04-27 09:31 | XMS RPT_ITS | CCD ---
Author Name Unknown Address [address] [facility] [address] [place] [address] Organization [facility] Care Team Providers Care Signs And Displays Salesperson Name Role Phone No, Physician Primary Care Provider Deborah Michelle MD, Rakel Primary Care Provider [phone] [place] Attending Unav RAKEL Pizano Primary Care Unavailable JUJU ESQUIVEL Admitting Unavailab JUJU Friend Attending Unavailab RAKEL Marcos Primary Care Unavailable JUJU ESQUIVEL Admitting Unavailab Rakel Marcos MD Primary Care Provider JUJU ESQUIVEL Attending Zenaidaab RAKEL Marcos Primary [facility] Unavailable NGOZI LAUREN Attending Unavailable RAKEL MICHELLE Primary [facility] Unavailable JUJU ESQUIVEL Attending Unavailab RAKEL Marcos Primary [facility] Unavailable NGOZI LAUREN Attending RAKEL Dalal Primary [facility] Unavailable NGOZI LAUREN Attending Unavailable RAKEL MICHELLE Primary [facility] Unavailable Allergies Allergy Classification Reported Allergen(s) Allergy Type Date of Onset Reaction(s) Facility (7 sources) Bee Venom Protein (Honey Bee); Translations: [BEE VENOM PROTEIN (HONEY BEE)] Propensity to adverse reactions to drug 01-22-2022 [facility] Medications Current Medications Medication Drug Class(es) Dates Sig (Normalized) Sig (Original) acetaminophen 325 mg oral tablet (3 sources) Start: 02-07-2022 take 2 tablets by mouth every six hours as needed for pain acetaminophen (TylenoL) 325 MG tablet Take 2 (two) tablets (650 mg total) by mouth every 6 (six) hours as needed for pain . 60 tablet 0 02/07/2022 Active alendronic acid 70 mg oral tablet (8 sources) Bisphosphonate Start: 09-09-2021 take 1 tablet by mouth every week alendronate (FOSAMAX) 70 MG tablet Take 1 (one) tablet (70 mg total) by mouth once a week Takes on Saturdays. . 0 09/09/2021 Active aspirin 325 mg oral tablet (8 sources) Platelet Aggregation Inhibitor, Nonsteroidal Anti-inflammatory Drug Start: 11-13-2021 take 1 tablet by mouth once daily in the evening aspirin 325 MG tablet Take 1 (one) tablet (325 mg total) by mouth every evening . 0 11/13/2021 Active atorvastatin 20 mg oral tablet (8 sources) HMG-CoA Reductase Inhibitor Start: 11-09-2021 take 1 tablet by mouth once daily in the morning atorvastatin (LIPITOR) 20 MG tablet Take 1 (one) tablet (20 mg total) by mouth every morning . 0 11/09/2021 Active calcium carbonate 1500 mg oral tablet (8 sources) Start: 11-13-2021 take 1 tablet by mouth once daily in the morning calcium carbonate (OS-ANA) 600 mg calcium (1,500 mg) tablet Take 1 (one) tablet (600 mg total) by mouth every morning . 0 11/13/2021 Active carboxymethylcell/hyp romellose (GENTEAL GEL OPHT) (4 sources) apply 1 drop(s) into the eye(s) at bedtime carboxymethylcell/ hypromellose (GENTEAL GEL OPHT) Apply 1 drop to eye at bedtime . 0 Active cholecalciferol 0.125 mg oral capsule (8 sources) Vitamin D Start: 11-13-2021 take 1 capsule by mouth once daily in the morning cholecalciferol, vitamin D3, 125 mcg (5,000 unit) capsule Take 1 (one) capsule (5,000 Units total) by mouth every morning . 0 11/13/2021 Active chondroitin sulfates 400 mg / glucosamine hydrochloride 500 mg oral tablet (4 sources) take 1 tablet by mouth twice daily glucosamine-chondr oitin 500-400 mg tablet Take 1 (one) tablet by mouth 2 (two) times a day . 0 Active clobetasol propionate 0.5 mg/ml topical cream (8 sources) Corticosteroid Start: 09-18-2021 clobetasoL (TEMOVATE) 0.05 % cream Apply 1 application topically daily as needed . 0 09/18/2021 Active Completed/Discontinued Medications Medication Drug Class(es) Dates Sig (Normalized) Sig (Original) chondroitin sulfates 400 mg oral capsule (5 sources) Start: 11-13-2021 End: 01-22-2022 chondroitin sulfate A sodium 400 mg cap Take by mouth . 0 11/13/2021 01/22/2022 Discontinued ibuprofen 600 mg oral tablet (2 sources) Nonsteroidal Anti-inflammatory Drug Start: 02-07-2022 End: 06-04-2022 take 1 tablet by mouth every six hours as needed for pain ibuprofen (ADVIL,MOTRIN) 600 MG tablet Take 1 (one) tablet (600 mg total) by mouth every 6 (six) hours as needed for pain . 60 tablet 0 02/07/2022 06/04/2022 Discontinued (Surgery) naproxen sodium 220 mg oral tablet (3 sources) Nonsteroidal Anti-inflammatory Drug End: 06-04-2022 take 1 tablet by mouth twice daily as needed naproxen sodium (ANAPROX) 220 MG tablet Take 1 (one) tablet (220 mg total) by mouth 2 (two) times a day as needed . 0 06/04/2022 Discontinued (Patient's Request) 24 hr oxybutynin chloride 10 mg extended release oral tablet (6 sources) Cholinergic Muscarinic Antagonist Start: 09-19-2020 End: 03-26-2022 take 1 tablet by mouth twice daily oxybutynin (DITROPAN-XL) 10 MG 24 hr tablet Take 1 (one) tablet (10 mg total) by mouth 2 (two) times a day . 0 09/19/2020 03/26/2022 Discontinued Problems Active Problems Problem Classification Problem Date Documented Da te Episodic/Chronic Diabetes mellitus with complications (3 sources) Type 2 diabetes mellitus in obese; Translations: [Type 2 diabetes mellitus with other specified complication] Onset: 01-22-2022 Chronic Essential hypertension (3 sources) Essential hypertension; Translations: [Essential (primary) hypertension] Onset: 01-22-2022 Chronic Genitourinary symptoms and ill-defined conditions (5 sources) Double incontinence; Translations: [Unspecified urinary incontinence] Chronic Genitourinary symptoms and ill-defined conditions (6 sources) Finding of sensation of bladder; Translations: [Feeling of incomplete bladder emptying] Episodic Other aftercare (1 source) Surgical follow-up; Translations: [Encounter for follow-up examination after completed treatment for conditions other than malignant neoplasm] Episodic Other diseases of bladder and urethra (3 sources) Overactive bladder; Translations: [Overactive bladder] Chronic Other gastrointestinal disorders (1 source) Constipation; Translations: [Constipation, unspecified] 12-09-2022 Episodic Other nervous system disorders (2 sources) Other acute postprocedural pain; Translations: [Other acute postprocedural pain] Onset: 02-07-2022 Episodic Other nutritional; endocrine; and metabolic disorders (2 sources) Obesity, unspecified; Translations: [Obesity, unspecified] Onset: 01-22-2022 Chronic Urinary tract infections (2 sources) Recurrent urinary tract infection; Translations: [Urinary tract infection, site not specified] Episodic Past or Other Problems Problem Classification Problem Date Documented Da te Episodic/Chronic Prolapse of female genital organs (13 sources) Prolapse of female genital organs; Translations: [Female genital prolapse, unspecified] Onset: 01-02-2022 Resolved: 02-16-2022 Chronic Unclassified (1 source) Post-op Onset: 02-16-2022 Results Test Name Value Interpretation Reference Range Facil ity Vital Signs Date Time Vital Sign Value Performing Clinician Faci lity 12-03-2022 12:58-0400 Body temperature 98.29 [degF] Ngozi JENNINGS- C Work Phone: [facility] 12-03-2022 12:58-0400 Diastolic blood pressure 84 mm[Hg] Ngozi Lauren PA-C Work Phone: [facility] 12-03-2022 12:58-0400 Heart rate 89 /min Ngozi Lauren PA- C Work Phone: [facility] 12-03-2022 12:58-0400 Respiratory rate 16 /min Ngozi Lauren PA- C Work Phone: [facility] 12-03-2022 12:58-0400 Systolic blood pressure 146 mm[Hg] Ngozi Lauren PA-C Work Phone: [facility] 06-04-2022 13:24-0500 Body temperature 98.91 [degF] Ngozi Lauren PA- C Work Phone: [facility] 06-04-2022 13:24-0500 Diastolic blood pressure 80 mm[Hg] Ngozi Lauren PA-C Work Phone: [facility] 06-04-2022 13:24-0500 Heart rate 87 /min Ngozi Lauren PA- C Work Phone: [facility] 06-04-2022 13:24-0500 Respiratory rate 17 /min Ngozi Lauren PA- C Work Phone: [facility] 06-04-2022 13:24-0500 Systolic blood pressure 144 mm[Hg] Ngozi Lauren PA-C Work Phone: [facility] 03-26-2022 14:01-0500 Body temperature 98.2 [degF] Juju Esquivel MD Work Phone: [facility] 03-26-2022 14:01-0500 Diastolic blood pressure 82 mm[Hg] Juju Esquivel MD Work Phone: [facility] Encounters Encounter Date Encounter Type Care Provider Facility Start: 12-03-2022 End: 12-03-2022 ambulatory NGOZI ROSSI MUKESHCAMPOS [facility] Ambulatory Start: 12-03-2022 End: 12-03-2022 Office outpatient visit 25 minutes Ngozi Lauren PA-C Work Phone: [facility] Procedures Date Procedure Procedure Detail Performing Clinician Start: 02-07-2022 H/O: hysterectomy S/P hysterectomy Mariana Esquivel MD Work Phone: Start: 01-22-2022 Basic metabolic pane l calcium total Juju Esquivel MD Work Phone: Start: 11-21-2021 Urnls dip stick/tabl et rgnt non-auto w/o micrscp Juju Esquivel MD Work Phone: Plan of Treatment Date Care Activity Detail Author Start: 06-10-2023 End: 06-10-2023 Patient encounter procedure 06/10/2023 1:00 PM EST Office Visit [facility] [address] [facility] [address] [place] [phone] Ngozi Lauren PA-C [address] [place] [id number] [facility] Start: 12-28-2022 Influenza vaccination Sequential Influenza Vaccine (#1) [facility] Start: 12-03-2022 End: 12-03-2022 Patient encounter procedure 12/03/2022 Office Visit Urogynecology Ngozi Lauren PA-C [address] [place] [id number] [facility] Start: 06-04-2022 End: 06-04-2022 Patient encounter procedure 06/04/2022 Office Visit Urogynecology Ngozi Lauren PA-C [address] [place] [id number] [facility] Start: 03-26-2022 End: 03-26-2022 Follow-up encounter 03/26/2022 Follow-Up Urogynecology Juju Esquivel MD [address] [place] [address] [place] [address] [facility] Start: 02-19-2022 End: 02-19-2022 Patient encounter procedure 02/19/2022 Office Visit Urogynecology Rhona Amanda MD [address] [facility] [address] [place] [address] Juju Esquivel MD [address] [place] [address] [facility] Start: 02-16-2022 End: 02-16-2022 Follow-up encounter 02/16/2022 Follow-Up Urogynecology Ngozi Lauren PA-C [address] [place] [address] [facility] Start: 02-07-2022 End: 02-07-2022 Admission to same day surgery center 02/07/2022 Surgery Juju Esquivel MD [address] [place] [address] SUPRACERVICAL HYSTERECTOMY WITH OR WITHOUT BILATERAL SALPINGO - OOPHORECTOMY, ABDOMINAL SACROCOLPOPEXY, CYSTOSCOPY [facility] Periop Payers Date Payer Category Payer Medicare [employer] MANAGED [place] DICARE A[employer] MEDICARE PLAN (HMO) [id number] 2021-Present [phone] [address] [place] [address] [id number] 2021 Medicare [id number] 1945 Unknown [id number] 1945 Unknown [id number] 1945 Unknown [id number] 1945 Unknown [id number] 1945 Unknown [id number] 1945 Unknown [id number] 1945 Unknown [id number] Social History Date Type Detail Facility 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 [facility] Start: 1945 Sex Assigned At Not on file [facility] Start: 11-21-2021 Tobacco smoking status [facility] Never sm oked tobacco [facility] Start: 11-21-2021 Tobacco use and exposure Smokeless t obacco non-user [facility] Start: 11-21-2021 End: 12-03-2022 Alcohol intake Current drinker of alcohol (finding) [facility] Start: 11-21-2021 History SDOH Alcohol Comment rare [facility] Start: 11-11-2021 End: 06-04-2022 Exposure to SARS-CoV-2 (event) Not sure [facility] Start: 01-22-2022 Alcohol Comment occ [facility] Start: 12-03-2022 History of Social function [facility] Start: 12-03-2022 Tobacco use panel [facility] Start: 01-02-2022 Gender identity Identifies as female gender (finding) [facility] Start: 01-02-2022 Sexual orientation Heterosexual (fin ding) [facility] Medical Equipment Procedure Code Equipment Code Equipment Origin al Text Equipment Identifier Dates Mesh 10 X 15cm G yne Prolene Soft - [id number] Start: 02-07-2022 Clinical Notes 11-21-2021 to 12-09-2022 Ngozi Lauren PA-C - 12/09/2022 9:12 PM Diamond Day MA - 03/26/2022 2:23 PM ESTAddendum Note - Vandana Ham MA - 01/30/2022 8:35 AM EDTPatient Instructions Note Date & Type Note Facility 12-09-2022 History of Present illness Narrative [facility] Uro[facility] Patient:Cecil Ling :1945 Date of Visit: 12/03/2022 Consulting Physician:No ref. provider found Primary Care Provider:Rakel Michelle MD History of Presenting Illness: Ms. Ling is a 77-year-old woman with a history of symptomatic, incomplete uterovaginal vault prolapse, mixed urinary incontinence, urinary urgency, frequency, and nocturia. Urodynamic testing prior to referral to our office was negative. In January of 2022, she underwent a supracervical abdominal hysterectomy, bilateral salpingo-oophorectomy, abdominal sacrocolpopexy, and cystoscopy. In the spring, she underwent 12 sessions of pelvic floor PT. She was previously trialed on Gemtesa, oxybutynin, trospium ER 60 mg and most recently trospium IR 20 mg twice daily (switched to immediate release due to insurance tier change). She presents today for follow up, accompanied by her daughter. She reports that overall she is doing well with her current treatment plan, although she states, This is still not where I want to be, I'd like more control. She is now voiding every 2 hours during the day and is sleeping through the night. On some days she is using 2 Depends briefs per day, but other days up to 5 or 6 per day. At baseline she reported using 7 to 8 pads per day. She reports that her constipation has improved, and she has noticed that she uses less protection when her bowel movements are regular. She is typically having daily bowel movements, but sometimes will have one every couple of days. She is working on improving her fiber intake with salads, fruits and vegetables. She also uses MiraLax as needed. She denies blood in her stool. She reports consuming a total of 64 to 80 ounces of fluids daily including water, Diet Sprite, milk and 1 cup of coffee. She previously underwent pelvic floor physical therapy in June of 2021, and has been practicing pelvic floor exercises somewhat regularly. She reports a longstanding history of constipation as well as dry eyes (uses drops) but otherwise denies any side effects such as dry mouth or cognitive effects. She denies dysuria, gross hematuria, fever, chills, flank pain, urinary hesitancy, or postvoid fullness. She denies vaginal bleeding or pelvic/vaginal pain. Denies any prolapse recurrence. She denies leakage of urine with coughing, laughing, sneezing or exertion. Medications: Outpatient Medications Marked as Taking for the 12/03/22 encounter (Office Visit) with Ngozi Lauren PA-C Medication Sig Dispense Refill acetaminophen (TylenoL) 325 MG tablet Take 2 (two) tablets (650 mg total) by mouth every 6 (six) hours as needed for pain . 60 tablet 0 alendronate (FOSAMAX) 70 MG tablet Take 1 (one) tablet (70 mg total) by mouth once a week Takes on Saturdays. . aspirin 325 MG tablet Take 1 (one) tablet (325 mg total) by mouth every evening . atorvastatin (LIPITOR) 20 MG tablet Take 1 (one) tablet (20 mg total) by mouth every morning . calcium carbonate (OS-ANA) 600 mg calcium (1,500 mg) tablet Take 1 (one) tablet (600 mg total) by mouth every morning . carboxymethylcell/hypromellose (GENTEAL GEL OPHT) Apply 1 drop to eye at bedtime . cholecalciferol, vitamin D3, 125 mcg (5,000 unit) capsule Take 1 (one) capsule (5,000 Units total) by mouth every morning . clobetasoL (TEMOVATE) 0.05 % cream Apply 1 application topically daily as needed . cyanocobalamin (B-12) 1000 MCG tablet Take 1 (one) tablet (1,000 mcg total) by mouth every morning . dapagliflozin (FARXIGA) 10 mg tablet Take 1 (one) tablet (10 mg total) by mouth every morning . docusate sodium (Colace) 100 MG capsule Take 1 (one) capsule (100 mg total) by mouth daily as needed for constipation . 30 capsule 1 fluticasone propionate (FLONASE) 50 mcg/actuation nasal spray Instill 2 (two) sprays into each nostril as needed for allergies . glucosamine-chondroitin 500-400 mg tablet Take 1 (one) tablet by mouth 2 (two) times a day . latanoprost (XALATAN) 0.005 % ophthalmic solution Administer 1 (one) drop to both eyes nightly . lisinopriL (PRINIVIL,ZESTRIL) 10 MG tablet Take 1 (one) tablet (10 mg total) by mouth every morning . metFORMIN (GLUCOPHAGE) 500 MG tablet Take 2 (two) tablets (1,000 mg total) by mouth 2 (two) times a day with meals . multivit-min/ferrous fumarate (MULTI VITAMIN ORAL) Take 1 tablet by mouth every morning . pantoprazole (PROTONIX) 40 MG tablet Take 1 (one) tablet (40 mg total) by mouth every evening . timolol (TIMOPTIC) 0.5 % ophthalmic solution Administer 1 (one) drop to both eyes 2 (two) times a day . Trulicity 3 mg/0.5 mL Pen Inject 4.4 mg under the skin once a week Injects every Saturday. . [DISCONTINUED] trospium (SANCTURA) 20 mg tablet Take 1 (one) tablet (20 mg total) by mouth 2 (two) times a day . 200 tablet 1 Review of Systems: She denies headaches, visual symptoms, chest pain, abdominal pain or distention, shortness of breath, change in appetite, weight loss, weight gain, muscles pain, or joint pain. Physical Exam:BP (!) 146/84 (BP Location: Right arm, Patient Position: Sitting, BP Cuff Size: Adult) Pulse 89 Temp 98.3 F (36.8 C) (Temporal) Resp 16 General: She appears well, in no acute distress. Psychiatric: She is alert and oriented to person, place and time. Respiratory: Normal respiratory rate and effort. No accessory muscle use. Assessment and Plan: 1. Urinary urgency, frequency, urge urinary incontinence: I have recommended behavior modifications including scheduled voiding, avoidance of bladder irritants such as alcohol and caffeine, fluid restriction to 60 ounces daily and pelvic floor exercises. We have discussed pelvic floor mouth muscle exercises in detail. I recommend that she begin practicing 12 long pelvic floor muscle holds, as well as 12 short muscle short pelvic floor muscle holds every morning and evening. We reviewed pharmacologic treatment options including risks and benefits of anticholinergic medications. She has been happy with trospium IR 20 mg twice daily and requests a new prescription. Her insurance requests a 100 day prescription, which was provided. Today we also reviewed 3rd line treatment options such as intravesical Botox injections and sacral nerve stimulation. She is not comfortable with the risks associated with intravesical Botox injections. She does voice interest in sacral nerve stimulation, but overall does not feel ready for this yet. This procedure was discussed in detail and all questions were answered. 2. Constipation: I have recommended adequate water intake, physical activity, and fiber intake with a goal of 25 g daily. We also discussed the use of fiber supplementation as needed. Literature regarding fiber intake was provided. She reports that she is due for a colonoscopy; I have offered to place an order today, however, she prefers to follow up with her PCP for her colonoscopy referral. 3. I personally spent 30 minutes on this encounter, evaluating the patient, discussing potential treatment options and answering questions. Return in 6 months or as needed. Ngozi Lauren PA-C documented in this encounter [facility] 03-26-2022 History of Present illness Narrative Chaperoned exam by Dr. Esquivel documented in this encounter [facility] 01-30-2022 Note Addended by: VANDANA ROJAS on: 01/30/2022 08:35 AM Modules accepted: Orders [facility] 01-30-2022 Miscellaneous Notes Addended by: VANDANA HAM on: 01/30/2022 08:35 AM Modules accepted: Orders documented in this encounter [facility] 01-22-2022 History and physical note Cecil Ling 1945 Encounter Diagnoses Name Primary? Pre-op examination Yes Uterovaginal prolapse, unspecified Primary hypertension Diabetes mellitus type 2 in obese (HCC) Procedure: Cystoscopy, Abdominal Sacrocolpopexy, Supracervical Hysterectomy, Possible BSO Surgeon: Dr. Martínez PCP: Rakel Michelle MD Cardiology: None Date of Procedure: 02/07/22 DATE OF SERVICE 01/22/2022. ASSESSMENT 1.Uterovaginal prolapse. 2.Hypertension. 3.Hyperlipidemia. 4.Noninsulin-dependent diabetes mellitus. 5.Tendency toward motion sickness. 6.Osteoporosis. 7.Environmental allergies. 8.Vitamin D deficiency. 9.Elevated body mass index. 10.Lumbar degenerative disk disease. 11.Osteoarthritis. 12.Overactive bladder. 13.Cataracts. 14.Glaucoma. 15.Gastroesophageal reflux disease. 16.Constipation. 17.Generalized anxiety disorder. 18.Family history significant for diabetes, hypertension, deep-vein thrombosis, cerebrovascular accident. 1. ASA = 2 . 2. RCRI = 1 . (Score/Risk of Major Cardiac Outcomes - 0/0.4%, 1/0.9%, 2/2.4%, 3 or more/>5.4%. This may overestimate the cardiac risks in lower risk procedures and underestimate the risks in vascular procedures. This study has been externally validated.) 3. Caprini Score = 10 . (Score/Risk of Symptomatic VTE = 0/<0.5%, 1-2/1.5%, 3-4/3.0%, 5 or greater/6% or greater). 4. Apfel Score = 4 . (Score/Risk of PONV = 0/10%, 1/21%, 2/39%, 3/61%, 4/79%) This score has been externally validated. 1. The patient is at increased risk for postoperative delirium. ' Plan: 1. The patient falls into an acceptable cardiac risk for category for their planned procedure per 2014 ACC Guidelines and Recommendations. 2. Endocarditis prophylaxis is not required per 2017 ACC/AHA Guidelines and Recommendations. 3. Avoid/limit perioperative hypothermia. 4. Perioperative thromboembolic prophylaxis is recommended per the 2019 [place] [employer] Guidelines for Management of VTE: Prevention of VTE in Surgical Hospitalized Patients (or 2019 ACCP Guidelines and Recommendations, or 2011 AAOS Guidelines for orthopedic procedures, or 2009 STEVE Guidelines for neurosurgical procedures). 5. The patient s head of the bed should be elevated to 30 degrees post-operatively unless contraindicated by the procedure. 6. The patient has been advised to discontinue NSAID s and alternative medicines (Vitamins, herbals, etc.) seven days prior to surgery. Perioperative management of the patient's antiplatelet therapy is recommended per the 2016 ACC/AHA Guidelines - Focused Update on Duration of Dual Antiplatelet Therapy in Patient's With Coronary Artery Disease or in accordance with their urban gardening specialist's recommendations. 7. The patient may use appropriate amounts of acetaminophen pre-operatively for pain management if not allergic and if no history of liver disease. 8. The patient was advised to follow the current [facility] guidelines regarding fluid intake after midnight and to take any recommended medications on the morning of surgery with a sip of water. 9. Ordered laboratory tests will be reviewed pre-operatively and any pertinent abnormalities needing to be addressed will be communicated through Quick Notes. 10. Post-operative spirometry/volurex, deep breathing maneuvers, and early ambulation is recommended if not contraindicated by the procedure. 11. This report will be made available to the requesting surgeon through the electronic medical records. 1. The patient does not meet criteria for the initiation of perioperative beta-blockers per 2017 ACC Guidelines and Recommendations. 1. The patient was advised to discontinue any glucophage containing agents on the morning of their planned procedure (per [facility] protocol). 2. The patient was directed to take 80% of their evening dose of their long acting insulin on the evening prior to their procedure (per [facility] protocol). 3. The patient was directed not to take any oral diabetic agents or short acting insulin on the morning of their procedure (per [facility] protocol). 4. The patient was directed that if they have an insulin pump, they should maintain their basal rate on the morning of their procedure. They will receive further guidance from anesthesia on the morning of their procedure (per [facility] protocol). Consideration can be given to reducing the basal rate by 25 % as well. 5. The patient's glucose can be monitored perioperatively with accu-checks and treated with basal insulin plus bolus corrective insulin therapy to maintain a glucose between 140 and 180 (per 2019 ADA guidelines). 6. The patient should receive basal insulin plus bolus corrective insulin therapy until stable, then may resume their previously prescribed diabetic regimen in addition to any recommended changes. (Glucophage containing products should be withheld for another 48 hours if intravenous contrast dye is used). 7. For patient's discontinuing their SGLT2i medications 3 to 4 days prior to their planned procedure, they should contact their PCP or new accounts representative for recommendations regarding hyperglycemia management while off of these medications. 8. If the SGLT2i has not been discontinued within the recommended time frame, consider postponing the procedure or consider measuring the patient's serum ketone level and standard base excess (SBE) on the day of their procedure. If ketones are <1 and SBE > -5, consider proceeding with procedure. If ketones are >1 and SBE > -5, consider endocrinology consult prior to proceeding with the procedure. If ketones are >1 and SBE < -5, consider post postponing non-urgent surgeries. 9. If the patient presents on the day of surgery with symptoms suggestive of DKA consider postponing the surgery. 10. Consider resuming the patient's SGLT2i only when the patient has resumed full oral intake. 1. The patient was advised to refrain from taking their JUDSON inhibitors or ARB's within 24 hours of surgery per [facility] Anesthesia recommendations. 1. For patient's 65 or older consider incorporating the 2016 ACS/AGS Guidelines for Optimal Perioperative Management of the Geriatric Patient. -consider avoiding/limiting the use of opioids, benzodiazepines, antihistamines, and anticholinergics -consider opioid sparing multimodal pain management -consider delirium identification/prevention measures (daily CAM Short Form) -consider fall precautions (Campbell Fall Scale) -consider nutritional support (ESPEN Guidelines) -consider pressure ulcer prevention (Jose Score) -consider functional decline identification and prevention measures 1. The patient was advised to alert anesthesia on the day of surgery of their tendency toward post-operative nausea and vomiting/motion sickness. PREOPERATIVE HISTORY AND PHYSICAL EXAMINATION DATE OF SERVICE 01/22/2022 HISTORY OF PRESENT ILLNESS Ms. Ling is a pleasant 76-year-old white female with a past medical history significant for uterovaginal prolapse, hypertension, hyperlipidemia, noninsulin-dependent diabetes mellitus, gastroesophageal reflux disease, who presents today for preoperative consultation and risk stratification at the request of Dr. Esquivel for a planned cystoscopy, abdominal sacral colpopexy, supracervical hysterectomy, and possible bilateral salpingo-oophorectomy on 02/07/2022. The patient reports she does have a history of hypertension and hyperlipidemia, which she believes to be adequately controlled on her current regimen. The patient is noted to be on a statin medication at this time. The patient also reports having kip-axznrio-nssyueohv diabetes mellitus. The patient believes that her last A1c level was measured at 6.8. The patient denies any end-organ involvement associated with her diabetes such as retinopathy, neuropathy, nephropathy, or gastroparesis. The patient currently denies any polyuria, polydipsia, or polyphagia. The patient denies a history of renal insufficiency, cerebrovascular disease, coronary artery disease, peripheral vascular disease, or valvular heart disease. The patient believes she may have had a stress test performed about 10 years ago. The patient believes that was within normal limits. The patient states she is not known to have any specific cardiac disease that she is aware of. The patient states she is not known to snore excessively when she sleeps and does not necessarily appear to be at risk for sleep apnea based on her statements today. The patient has undergone several procedures in the past, all of which were uneventful from a cardiac and anesthesia standpoint. The patient currently describes a functional capacity of less than 4 METs. The patient attributes her functional limitations to her arthritis. At her limited level of activity, the patient is not reporting any active cardiac symptoms such as chest pain, atypical chest pain, palpitations, syncope, near syncope, orthopnea, PND, lower extremity edema, claudication, dyspnea on exertion, or shortness of breath. The patient states she is a lifelong nonsmoker. The patient does have thromboembolic disease in her father. The patient is unaware of any specific familial thrombophilic disorders, however. The patient has no personal history significant for bleeding diathesis or thromboembolic disease. The patient has no other acute complaints currently. Allergies Allergen Reactions Bee Venom Protein (Honey Bee) Swelling Local swelling Active Home Medications Medication Sig Take Last Dose On Take Morning of Surgery Comment(s) alendronate (FOSAMAX) 70 MG tablet Take 1 (one) tablet (70 mg total) by mouth once a week Takes on Saturdays. . aspirin 325 MG tablet Take 1 (one) tablet (325 mg total) by mouth every evening . atorvastatin (LIPITOR) 20 MG tablet Take 1 (one) tablet (20 mg total) by mouth daily with dinner . calcium carbonate (OS-ANA) 600 mg calcium (1,500 mg) tablet Take 1 (one) tablet (600 mg total) by mouth every morning . carboxymethylcell/hypromellose (GENTEAL GEL OPHT) Apply 1 drop to eye at bedtime . cholecalciferol, vitamin D3, 125 mcg (5,000 unit) capsule Take 1 (one) capsule (5,000 Units total) by mouth every morning . clobetasoL (TEMOVATE) 0.05 % cream Apply 1 application topically daily as needed . cyanocobalamin (B-12) 1000 MCG tablet Take 1 (one) tablet (1,000 mcg total) by mouth every morning . dapagliflozin (FARXIGA) 10 mg tablet Take 1 (one) tablet (10 mg total) by mouth every morning . fluticasone propionate (FLONASE) 50 mcg/actuation nasal spray Instill 2 (two) sprays into each nostril as needed for allergies . glucosamine-chondroitin 500-400 mg tablet Take 1 (one) tablet by mouth 2 (two) times a day . latanoprost (XALATAN) 0.005 % ophthalmic solution Administer 1 (one) drop to both eyes nightly . lisinopriL (PRINIVIL,ZESTRIL) 10 MG tablet Take 1 (one) tablet (10 mg total) by mouth every morning . metFORMIN (GLUCOPHAGE) 500 MG tablet Take 2 (two) tablets (1,000 mg total) by mouth 2 (two) times a day with meals . multivit-min/ferrous fumarate (MULTI VITAMIN ORAL) Take 1 tablet by mouth every morning . naproxen sodium (Aleve) 220 MG tablet Take 1 (one) tablet (220 mg total) by mouth 2 (two) times a day as needed . oxybutynin (DITROPAN-XL) 10 MG 24 hr tablet Take 1 (one) tablet (10 mg total) by mouth 2 (two) times a day . pantoprazole (PROTONIX) 40 MG tablet Take 1 (one) tablet (40 mg total) by mouth daily . timolol (TIMOPTIC) 0.5 % ophthalmic solution Administer 1 (one) drop to both eyes 2 (two) times a day . Trulicity 3 mg/0.5 mL Pen Inject 3 mg under the skin once a week Injects every Saturday. . Past Medical History: Diagnosis Date Arthritis Back pain Bladder problem urinary incotinence Cataract Constipation Diabetes mellitus (HCC) Type II. On oral meds. Diabetes mellitus, type 2 (HCC) Glaucoma History of blood transfusion History of echocardiogram 2011 related to anxiety History of stress test 2011 related to anxiety Hyperlipidemia Hypertension Motion sickness Preglaucoma Open angle Past Surgical History: Procedure Laterality Date cataract surgery Bilateral 1998 inplants KYPHOPLASTY 2020 L1 T11 T12 URETHROTOMY 1971 Social History Socioeconomic History Marital status: Single Tobacco Use Smoking status: Never Smokeless tobacco: Never Vaping Use Vaping Use: Never used Substance and Sexual Activity Alcohol use: Yes Comment: occ Drug use: Never Sexual activity: Not Currently Family History Problem Relation Age of Onset Diabetes Mother Hypertension Mother Diabetes Father Deep vein thrombosis Father Hypertension Father Diabetes Sister Stroke Sister Hypertension Sister Diabetes Sister Hypertension Sister Diabetes Sister Review of Systems Constitutional: Negative for chills, decreased appetite, diaphoresis, fever, malaise/fatigue, night sweats, weight gain and weight loss. HENT: Positive for congestion. Negative for ear discharge, ear pain, hearing loss, hoarse voice, nosebleeds, odynophagia, sore throat, stridor and tinnitus. Eyes: Negative for blurred vision, discharge, double vision, pain, photophobia, redness, vision loss in left eye, vision loss in right eye, visual disturbance and visual halos. Cardiovascular: Negative. Negative for chest pain, claudication, cyanosis, dyspnea on exertion, irregular heartbeat, leg swelling, near-syncope, orthopnea, palpitations, paroxysmal nocturnal dyspnea and syncope. Respiratory: Negative. Negative for cough, hemoptysis, shortness of breath, sleep disturbances due to breathing, snoring, sputum production and wheezing. Endocrine: Negative for cold intolerance, heat intolerance, polydipsia, polyphagia and polyuria. Hematologic/Lymphatic: Negative for adenopathy and bleeding problem. Does not bruise/bleed easily. Skin: Negative. Negative for color change, dry skin, flushing, itching, nail changes, poor wound healing, rash, skin cancer, suspicious lesions and unusual hair distribution. Musculoskeletal: Positive for arthritis and back pain. Negative for falls, gout, joint pain, joint swelling, muscle cramps, muscle weakness, myalgias, neck pain and stiffness. Gastrointestinal: Positive for constipation and heartburn. Negative for bloating, abdominal pain, anorexia, change in bowel habit, bowel incontinence, diarrhea, dysphagia, excessive appetite, flatus, hematemesis, hematochezia, hemorrhoids, jaundice, melena, nausea and vomiting. Genitourinary: Positive for bladder incontinence and frequency. Negative for decreased libido, dysuria, flank pain, genital sores, hematuria, hesitancy, incomplete emptying, menorrhagia, missed menses, nocturia, non-menstrual bleeding, pelvic pain and urgency. Neurological: Negative for aphonia, brief paralysis, difficulty with concentration, disturbances in coordination, excessive daytime sleepiness, dizziness, focal weakness, headaches, light-headedness, loss of balance, numbness, paresthesias, seizures, sensory change, tremors, vertigo and weakness. Psychiatric/Behavioral: Negative for altered mental status, depression, hallucinations, hypervigilance, memory loss, substance abuse, suicidal ideas and thoughts of violence. The patient is nervous/anxious. The patient does not have insomnia. Allergic/Immunologic: Negative for environmental allergies, HIV exposure, hives and persistent infections. Vitals: 01/22/22 1144 BP: (!) 141/86 Pulse: 88 Resp: 14 Temp: 97.6 F (36.4 C) TempSrc: Oral SpO2: 97% Weight: 101.8 kg (224 lb 6.9 oz) Height: 5' 7.5 Physical Exam Vitals and nursing note reviewed. Constitutional: General: She is not in acute distress. Appearance: She is well-developed and well-nourished. She is obese. She is not diaphoretic. HENT: Head: Normocephalic and atraumatic. Right Ear: External ear normal. Left Ear: External ear normal. Nose: Nose normal. Mouth/Throat: Mouth: Oropharynx is clear and moist. Pharynx: No oropharyngeal exudate. Eyes: General: No scleral icterus. Right eye: No discharge. Left eye: No discharge. Extraocular Movements: EOM normal. Conjunctiva/sclera: Conjunctivae normal. Pupils: Pupils are equal, round, and reactive to light. Neck: Thyroid: No thyromegaly. Vascular: No JVD. Trachea: No tracheal deviation. Cardiovascular: Rate and Rhythm: Normal rate and regular rhythm. Pulses: Intact distal pulses. Heart sounds: Normal heart sounds. No murmur heard. No friction rub. No gallop. Pulmonary: Effort: Pulmonary effort is normal. No respiratory distress. Breath sounds: Normal breath sounds. No stridor. No wheezing or rales. Chest: Chest wall: No tenderness. Abdominal: General: Bowel sounds are normal. There is no distension. Palpations: Abdomen is soft. There is no mass. Tenderness: There is no abdominal tenderness. There is no guarding or rebound. Hernia: No hernia is present. Musculoskeletal: General: No tenderness or edema. Normal range of motion. Cervical back: Normal range of motion and neck supple. Lymphadenopathy: Cervical: No cervical adenopathy. Skin: General: Skin is warm and dry. Coloration: Skin is not pale. Findings: No erythema or rash. Neurological: Mental Status: She is alert and oriented to person, place, and time. Cranial Nerves: No cranial nerve deficit. Motor: No abnormal muscle tone. Coordination: Coordination normal. Deep Tendon Reflexes: Reflexes are normal and symmetric. Reflexes normal. Psychiatric: Mood and Affect: Mood and affect normal. Behavior: Behavior normal. Thought Content: Thought content normal. Judgment: Judgment normal. River Acosta DO [employer] Work Phone: 01-22-2022 History and physical note Cecil Anuradha 1945 Encounter Diagnoses Name Primary? Pre-op examination Yes Uterovaginal prolapse, unspecified Primary hypertension Diabetes mellitus type 2 in obese (HCC) Procedure: Cystoscopy, Abdominal Sacrocolpopexy, Supracervical Hysterectomy, Possible BSO Surgeon: Dr. Martínez PCP: Rakel Michelle MD Cardiology: None Date of Procedure: 02/07/22 DATE OF SERVICE 01/22/2022. ASSESSMENT 1.Uterovaginal prolapse. 2.Hypertension. 3.Hyperlipidemia. 4.Noninsulin-dependent diabetes mellitus. 5.Tendency toward motion sickness. 6.Osteoporosis. 7.Environmental allergies. 8.Vitamin D deficiency. 9.Elevated body mass index. 10.Lumbar degenerative disk disease. 11.Osteoarthritis. 12.Overactive bladder. 13.Cataracts. 14.Glaucoma. 15.Gastroesophageal reflux disease. 16.Constipation. 17.Generalized anxiety disorder. 18.Family history significant for diabetes, hypertension, deep-vein thrombosis, cerebrovascular accident. 1. ASA = 2 . 2. RCRI = 1 . (Score/Risk of Major Cardiac Outcomes - 0/0.4%, 1/0.9%, 2/2.4%, 3 or more/>5.4%. This may overestimate the cardiac risks in lower risk procedures and underestimate the risks in vascular procedures. This study has been externally validated.) 3. Caprini Score = 10 . (Score/Risk of Symptomatic VTE = 0/<0.5%, 1-2/1.5%, 3-4/3.0%, 5 or greater/6% or greater). 4. Apfel Score = 4 . (Score/Risk of PONV = 0/10%, 1/21%, 2/39%, 3/61%, 4/79%) This score has been externally validated. 1. The patient is at increased risk for postoperative delirium. ' Plan: 1. The patient falls into an acceptable cardiac risk for category for their planned procedure per 2014 ACC Guidelines and Recommendations. 2. Endocarditis prophylaxis is not required per 2017 ACC/AHA Guidelines and Recommendations. 3. Avoid/limit perioperative hypothermia. 4. Perioperative thromboembolic prophylaxis is recommended per the 2019 [place] [employer] Guidelines for Management of VTE: Prevention of VTE in Surgical Hospitalized Patients (or 2019 ACCP Guidelines and Recommendations, or 2010 AAOS Guidelines for orthopedic procedures, or 2008 STEVE Guidelines for neurosurgical procedures). 5. The patient s head of the bed should be elevated to 30 degrees post-operatively unless contraindicated by the procedure. 6. The patient has been advised to discontinue NSAID s and alternative medicines (Vitamins, herbals, etc.) seven days prior to surgery. Perioperative management of the patient's antiplatelet therapy is recommended per the 2016 ACC/AHA Guidelines - Focused Update on Duration of Dual Antiplatelet Therapy in Patient's With Coronary Artery Disease or in accordance with their urban gardening specialist's recommendations. 7. The patient may use appropriate amounts of acetaminophen pre-operatively for pain management if not allergic and if no history of liver disease. 8. The patient was advised to follow the current [facility] guidelines regarding fluid intake after midnight and to take any recommended medications on the morning of surgery with a sip of water. 9. Ordered laboratory tests will be reviewed pre-operatively and any pertinent abnormalities needing to be addressed will be communicated through Quick Notes. 10. Post-operative spirometry/volurex, deep breathing maneuvers, and early ambulation is recommended if not contraindicated by the procedure. 11. This report will be made available to the requesting surgeon through the electronic medical records. 1. The patient does not meet criteria for the initiation of perioperative beta-blockers per 2017 ACC Guidelines and Recommendations. 1. The patient was advised to discontinue any glucophage containing agents on the morning of their planned procedure (per [facility] protocol). 2. The patient was directed to take 80% of their evening dose of their long acting insulin on the evening prior to their procedure (per [facility] protocol). 3. The patient was directed not to take any oral diabetic agents or short acting insulin on the morning of their procedure (per [facility] protocol). 4. The patient was directed that if they have an insulin pump, they should maintain their basal rate on the morning of their procedure. They will receive further guidance from anesthesia on the morning of their procedure (per [facility] protocol). Consideration can be given to reducing the basal rate by 25 % as well. 5. The patient's glucose can be monitored perioperatively with accu-checks and treated with basal insulin plus bolus corrective insulin therapy to maintain a glucose between 140 and 180 (per 2019 ADA guidelines). 6. The patient should receive basal insulin plus bolus corrective insulin therapy until stable, then may resume their previously prescribed diabetic regimen in addition to any recommended changes. (Glucophage containing products should be withheld for another 48 hours if intravenous contrast dye is used). 7. For patient's discontinuing their SGLT2i medications 3 to 4 days prior to their planned procedure, they should contact their PCP or new accounts representative for recommendations regarding hyperglycemia management while off of these medications. 8. If the SGLT2i has not been discontinued within the recommended time frame, consider postponing the procedure or consider measuring the patient's serum ketone level and standard base excess (SBE) on the day of their procedure. If ketones are <1 and SBE > -5, consider proceeding with procedure. If ketones are >1 and SBE > -5, consider endocrinology consult prior to proceeding with the procedure. If ketones are >1 and SBE < -5, consider post postponing non-urgent surgeries. 9. If the patient presents on the day of surgery with symptoms suggestive of DKA consider postponing the surgery. 10. Consider resuming the patient's SGLT2i only when the patient has resumed full oral intake. 1. The patient was advised to refrain from taking their JUDSON inhibitors or ARB's within 24 hours of surgery per [facility] Anesthesia recommendations. 1. For patient's 65 or older consider incorporating the 2016 ACS/AGS Guidelines for Optimal Perioperative Management of the Geriatric Patient. -consider avoiding/limiting the use of opioids, benzodiazepines, antihistamines, and anticholinergics -consider opioid sparing multimodal pain management -consider delirium identification/prevention measures (daily CAM Short Form) -consider fall precautions (Campbell Fall Scale) -consider nutritional support (ESPEN Guidelines) -consider pressure ulcer prevention (Jose Score) -consider functional decline identification and prevention measures 1. The patient was advised to alert anesthesia on the day of surgery of their tendency toward post-operative nausea and vomiting/motion sickness. PREOPERATIVE HISTORY AND PHYSICAL EXAMINATION DATE OF SERVICE 01/22/2022 HISTORY OF PRESENT ILLNESS Ms. Ling is a pleasant 76-year-old white female with a past medical history significant for uterovaginal prolapse, hypertension, hyperlipidemia, noninsulin-dependent diabetes mellitus, gastroesophageal reflux disease, who presents today for preoperative consultation and risk stratification at the request of Dr. Esquivel for a planned cystoscopy, abdominal sacral colpopexy, supracervical hysterectomy, and possible bilateral salpingo-oophorectomy on 02/07/2022. The patient reports she does have a history of hypertension and hyperlipidemia, which she believes to be adequately controlled on her current regimen. The patient is noted to be on a statin medication at this time. The patient also reports having zjx-[id number] diabetes mellitus. The patient believes that her last A1c level was measured at 6.8. The patient denies any end-organ involvement associated with her diabetes such as retinopathy, neuropathy, nephropathy, or gastroparesis. The patient currently denies any polyuria, polydipsia, or polyphagia. The patient denies a history of renal insufficiency, cerebrovascular disease, coronary artery disease, peripheral vascular disease, or valvular heart disease. The patient believes she may have had a stress test performed about 10 years ago. The patient believes that was within normal limits. The patient states she is not known to have any specific cardiac disease that she is aware of. The patient states she is not known to snore excessively when she sleeps and does not necessarily appear to be at risk for sleep apnea based on her statements today. The patient has undergone several procedures in the past, all of which were uneventful from a cardiac and anesthesia standpoint. The patient currently describes a functional capacity of less than 4 METs. The patient attributes her functional limitations to her arthritis. At her limited level of activity, the patient is not reporting any active cardiac symptoms such as chest pain, atypical chest pain, palpitations, syncope, near syncope, orthopnea, PND, lower extremity edema, claudication, dyspnea on exertion, or shortness of breath. The patient states she is a lifelong nonsmoker. The patient does have thromboembolic disease in her father. The patient is unaware of any specific familial thrombophilic disorders, however. The patient has no personal history significant for bleeding diathesis or thromboembolic disease. The patient has no other acute complaints currently. Allergies Allergen Reactions Bee Venom Protein (Honey Bee) Swelling Local swelling Active Home Medications Medication Sig Take Last Dose On Take Morning of Surgery Comment(s) alendronate (FOSAMAX) 70 MG tablet Take 1 (one) tablet (70 mg total) by mouth once a week Takes on Saturdays. . aspirin 325 MG tablet Take 1 (one) tablet (325 mg total) by mouth every evening . atorvastatin (LIPITOR) 20 MG tablet Take 1 (one) tablet (20 mg total) by mouth daily with dinner . calcium carbonate (OS-ANA) 600 mg calcium (1,500 mg) tablet Take 1 (one) tablet (600 mg total) by mouth every morning . carboxymethylcell/hypromellose (GENTEAL GEL OPHT) Apply 1 drop to eye at bedtime . cholecalciferol, vitamin D3, 125 mcg (5,000 unit) capsule Take 1 (one) capsule (5,000 Units total) by mouth every morning . clobetasoL (TEMOVATE) 0.05 % cream Apply 1 application topically daily as needed . cyanocobalamin (B-12) 1000 MCG tablet Take 1 (one) tablet (1,000 mcg total) by mouth every morning . dapagliflozin (FARXIGA) 10 mg tablet Take 1 (one) tablet (10 mg total) by mouth every morning . fluticasone propionate (FLONASE) 50 mcg/actuation nasal spray Instill 2 (two) sprays into each nostril as needed for allergies . glucosamine-chondroitin 500-400 mg tablet Take 1 (one) tablet by mouth 2 (two) times a day . latanoprost (XALATAN) 0.005 % ophthalmic solution Administer 1 (one) drop to both eyes nightly . lisinopriL (PRINIVIL,ZESTRIL) 10 MG tablet Take 1 (one) tablet (10 mg total) by mouth every morning . metFORMIN (GLUCOPHAGE) 500 MG tablet Take 2 (two) tablets (1,000 mg total) by mouth 2 (two) times a day with meals . multivit-min/ferrous fumarate (MULTI VITAMIN ORAL) Take 1 tablet by mouth every morning . naproxen sodium (Aleve) 220 MG tablet Take 1 (one) tablet (220 mg total) by mouth 2 (two) times a day as needed . oxybutynin (DITROPAN-XL) 10 MG 24 hr tablet Take 1 (one) tablet (10 mg total) by mouth 2 (two) times a day . pantoprazole (PROTONIX) 40 MG tablet Take 1 (one) tablet (40 mg total) by mouth daily . timolol (TIMOPTIC) 0.5 % ophthalmic solution Administer 1 (one) drop to both eyes 2 (two) times a day . Trulicity 3 mg/0.5 mL Pen Inject 3 mg under the skin once a week Injects every Saturday. . Past Medical History: Diagnosis Date Arthritis Back pain Bladder problem urinary incotinence Cataract Constipation Diabetes mellitus (HCC) Type II. On oral meds. Diabetes mellitus, type 2 (HCC) Glaucoma History of blood transfusion History of echocardiogram 2011 related to anxiety History of stress test 2011 related to anxiety Hyperlipidemia Hypertension Motion sickness Preglaucoma Open angle Past Surgical History: Procedure Laterality Date cataract surgery Bilateral 1998 inplants KYPHOPLASTY 2020 L1 T11 T12 URETHROTOMY 1971 Social History Socioeconomic History Marital status: Single Tobacco Use Smoking status: Never Smokeless tobacco: Never Vaping Use Vaping Use: Never used Substance and Sexual Activity Alcohol use: Yes Comment: occ Drug use: Never Sexual activity: Not Currently Family History Problem Relation Age of Onset Diabetes Mother Hypertension Mother Diabetes Father Deep vein thrombosis Father Hypertension Father Diabetes Sister Stroke Sister Hypertension Sister Diabetes Sister Hypertension Sister Diabetes Sister Review of Systems Constitutional: Negative for chills, decreased appetite, diaphoresis, fever, malaise/fatigue, night sweats, weight gain and weight loss. HENT: Positive for congestion. Negative for ear discharge, ear pain, hearing loss, hoarse voice, nosebleeds, odynophagia, sore throat, stridor and tinnitus. Eyes: Negative for blurred vision, discharge, double vision, pain, photophobia, redness, vision loss in left eye, vision loss in right eye, visual disturbance and visual halos. Cardiovascular: Negative. Negative for chest pain, claudication, cyanosis, dyspnea on exertion, irregular heartbeat, leg swelling, near-syncope, orthopnea, palpitations, paroxysmal nocturnal dyspnea and syncope. Respiratory: Negative. Negative for cough, hemoptysis, shortness of breath, sleep disturbances due to breathing, snoring, sputum production and wheezing. Endocrine: Negative for cold intolerance, heat intolerance, polydipsia, polyphagia and polyuria. Hematologic/Lymphatic: Negative for adenopathy and bleeding problem. Does not bruise/bleed easily. Skin: Negative. Negative for color change, dry skin, flushing, itching, nail changes, poor wound healing, rash, skin cancer, suspicious lesions and unusual hair distribution. Musculoskeletal: Positive for arthritis and back pain. Negative for falls, gout, joint pain, joint swelling, muscle cramps, muscle weakness, myalgias, neck pain and stiffness. Gastrointestinal: Positive for constipation and heartburn. Negative for bloating, abdominal pain, anorexia, change in bowel habit, bowel incontinence, diarrhea, dysphagia, excessive appetite, flatus, hematemesis, hematochezia, hemorrhoids, jaundice, melena, nausea and vomiting. Genitourinary: Positive for bladder incontinence and frequency. Negative for decreased libido, dysuria, flank pain, genital sores, hematuria, hesitancy, incomplete emptying, menorrhagia, missed menses, nocturia, non-menstrual bleeding, pelvic pain and urgency. Neurological: Negative for aphonia, brief paralysis, difficulty with concentration, disturbances in coordination, excessive daytime sleepiness, dizziness, focal weakness, headaches, light-headedness, loss of balance, numbness, paresthesias, seizures, sensory change, tremors, vertigo and weakness. Psychiatric/Behavioral: Negative for altered mental status, depression, hallucinations, hypervigilance, memory loss, substance abuse, suicidal ideas and thoughts of violence. The patient is nervous/anxious. The patient does not have insomnia. Allergic/Immunologic: Negative for environmental allergies, HIV exposure, hives and persistent infections. Vitals: 01/22/22 1144 BP: (!) 141/86 Pulse: 88 Resp: 14 Temp: 97.6 F (36.4 C) TempSrc: Oral SpO2: 97% Weight: 101.8 kg (224 lb 6.9 oz) Height: 5' 7.5 Physical Exam Vitals and nursing note reviewed. Constitutional: General: She is not in acute distress. Appearance: She is well-developed and well-nourished. She is obese. She is not diaphoretic. HENT: Head: Normocephalic and atraumatic. Right Ear: External ear normal. Left Ear: External ear normal. Nose: Nose normal. Mouth/Throat: Mouth: Oropharynx is clear and moist. Pharynx: No oropharyngeal exudate. Eyes: General: No scleral icterus. Right eye: No discharge. Left eye: No discharge. Extraocular Movements: EOM normal. Conjunctiva/sclera: Conjunctivae normal. Pupils: Pupils are equal, round, and reactive to light. Neck: Thyroid: No thyromegaly. Vascular: No JVD. Trachea: No tracheal deviation. Cardiovascular: Rate and Rhythm: Normal rate and regular rhythm. Pulses: Intact distal pulses. Heart sounds: Normal heart sounds. No murmur heard. No friction rub. No gallop. Pulmonary: Effort: Pulmonary effort is normal. No respiratory distress. Breath sounds: Normal breath sounds. No stridor. No wheezing or rales. Chest: Chest wall: No tenderness. Abdominal: General: Bowel sounds are normal. There is no distension. Palpations: Abdomen is soft. There is no mass. Tenderness: There is no abdominal tenderness. There is no guarding or rebound. Hernia: No hernia is present. Musculoskeletal: General: No tenderness or edema. Normal range of motion. Cervical back: Normal range of motion and neck supple. Lymphadenopathy: Cervical: No cervical adenopathy. Skin: General: Skin is warm and dry. Coloration: Skin is not pale. Findings: No erythema or rash. Neurological: Mental Status: She is alert and oriented to person, place, and time. Cranial Nerves: No cranial nerve deficit. Motor: No abnormal muscle tone. Coordination: Coordination normal. Deep Tendon Reflexes: Reflexes are normal and symmetric. Reflexes normal. Psychiatric: Mood and Affect: Mood and affect normal. Behavior: Behavior normal. Thought Content: Thought content normal. Judgment: Judgment normal. River Acosta DO documented in this encounter [facility] 01-22-2022 Instructions River Acosta DO - 01/22/2022 12:29 PM EDT Preoperative Medication Instructions In preparation for surgery please continue all of your current medications with the following changes: It is very important to follow these medication recommendations in order to prevent or limit potential adverse reactions associated with certain medications around the time of your surgery. If you are not able to follow the recommendations for any reason, including due to the timing of your procedure, please notify your surgeon. Active Home Medications Medication Sig Take Last Dose On Take Morning of Surgery Comment(s) alendronate (FOSAMAX) 70 MG tablet Take 1 (one) tablet (70 mg total) by mouth once a week Takes on Saturdays. . no aspirin 325 MG tablet Take 1 (one) tablet (325 mg total) by mouth every evening . 01/30/22 atorvastatin (LIPITOR) 20 MG tablet Take 1 (one) tablet (20 mg total) by mouth daily with dinner . no calcium carbonate (OS-ANA) 600 mg calcium (1,500 mg) tablet Take 1 (one) tablet (600 mg total) by mouth every morning . 01/30/22 carboxymethylcell/hypromellose (GENTEAL GEL OPHT) Apply 1 drop to eye at bedtime . no cholecalciferol, vitamin D3, 125 mcg (5,000 unit) capsule Take 1 (one) capsule (5,000 Units total) by mouth every morning . clobetasoL (TEMOVATE) 0.05 % cream Apply 1 application topically daily as needed . no cyanocobalamin (B-12) 1000 MCG tablet Take 1 (one) tablet (1,000 mcg total) by mouth every morning . 01/30/22 dapagliflozin (FARXIGA) 10 mg tablet Take 1 (one) tablet (10 mg total) by mouth every morning . 02/04/22 fluticasone propionate (FLONASE) 50 mcg/actuation nasal spray Instill 2 (two) sprays into each nostril as needed for allergies . Yes if needed glucosamine-chondroitin 500-400 mg tablet Take 1 (one) tablet by mouth 2 (two) times a day . 01/30/22 latanoprost (XALATAN) 0.005 % ophthalmic solution Administer 1 (one) drop to both eyes nightly . no lisinopriL (PRINIVIL,ZESTRIL) 10 MG tablet Take 1 (one) tablet (10 mg total) by mouth every morning . no metFORMIN (GLUCOPHAGE) 500 MG tablet Take 2 (two) tablets (1,000 mg total) by mouth 2 (two) times a day with meals . no multivit-min/ferrous fumarate (MULTI VITAMIN ORAL) Take 1 tablet by mouth every morning . 01/30/22 naproxen sodium (Aleve) 220 MG tablet Take 1 (one) tablet (220 mg total) by mouth 2 (two) times a day as needed . 01/30/22 oxybutynin (DITROPAN-XL) 10 MG 24 hr tablet Take 1 (one) tablet (10 mg total) by mouth 2 (two) times a day . no pantoprazole (PROTONIX) 40 MG tablet Take 1 (one) tablet (40 mg total) by mouth daily . Yes if needed timolol (TIMOPTIC) 0.5 % ophthalmic solution Administer 1 (one) drop to both eyes 2 (two) times a day . yes Trulicity 3 mg/0.5 mL Pen Inject 3 mg under the skin once a week Injects every Saturday. . no STOP Aspirin (and medications that contain aspirin, such as [place], Pepto-Bismol, Anacin), antiinflammatory medications such as Advil, Motrin, Ibuprofen, Naproxen, Aleve, [place], Pepto-Bismol, Anacin, Diclofenac, Voltaren, Daypro, Etodolac, Ketoprofen, Meloxicam, Piroxicam, Relafen, Nabumetone, etc. Also discontinue Vitamin C, Vitamin E, [place]-3 Fatty Acid, Fish Oil or Lovaza, as well as all herbal medications and supplements. Take last dose on 01/30/2022. Tylenol (acetaminophen) is acceptable, but be careful to follow the label directions. On the morning of surgery, with a small amount of water, take ONLY the medications listed above in the column Take the morning of surgery. If you are using Eye Drops or Inhalers, please bring them to the hospital. If you have sleep apnea and have a CPAP/BIPAP device, please bring it with you on the day of surgery. documented in this encounter [facility] 01-22-2022 Miscellaneous Notes Patient Instructions for [facility]: MAIN OR Prior to surgery: Please contact your Surgeon's office for the scheduled time of your surgery. Report to the Surgery Family Waiting Area in the [facility] 2 hours prior to your surgery. You may use the [employer] parking available at the Blue Entrance /or park in the Blue parking lot - a voucher for parking will be provided to you. One family member may accompany you back into the Pre-Op Area. If your surgeon has given you special guidelines for eating and drinking prior to surgery, follow their instructions. If not, the evening before surgery you may eat a low-fat meal up until midnight. Do not eat anything, including gum, cough drops, hard candy or mints after midnight. Clear liquids, including water, Gatorade and black coffee (no dairy or creamer products), up to two hours prior to surgery are permitted. Do not smoke, chew tobacco or drink alcohol for 24 hours before surgery. Please take any medications you have been instructed to take the morning of your surgery with small sips of water. Please be sure to wear comfortable, appropriate clothing. Please remove all jewelry and piercings, including wedding rings. RINGS WILL BE CUT OFF IF UNABLE TO REMOVE. Leave all valuable items at home. Shower using Dial soap or as advised by your Surgeon's office. Do not apply any makeup or lotions. Gel or acrylic nails must be removed from both ring fingers. Remove all nail argentine/product for surgeries involving extremities. Please remember to bring both your insurance card and a photo ID with you on the day of surgery. After your surgery: If you are having outpatient surgery - you must have a licensed moving van driver to take you home. The expectation is that this moving van driver will remain at the hospital for the duration of your procedure. You are advised to have a family member with you for at least 24 hours after being under Anesthesia. documented in this encounter [facility] 01-22-2022 Note Formatting of this n ote might be different from the original. Patient Instructions for [facility]: MAIN OR Prior to surgery: Please contact your Surgeon's office for the scheduled time of your surgery. Report to the Surgery Family Waiting Area in the [facility] 2 hours prior to your surgery. You may use the [employer] parking available at the Blue Entrance /or park in the Blue parking lot - a voucher for parking will be provided to you. One family member may accompany you back into the Pre-Op Area. If your surgeon has given you special guidelines for eating and drinking prior to surgery, follow their instructions. If not, the evening before surgery you may eat a low-fat meal up until midnight. Do not eat anything, including gum, cough drops, hard candy or mints after midnight. Clear liquids, including water, Gatorade and black coffee (no dairy or creamer products), up to two hours prior to surgery are permitted. Do not smoke, chew tobacco or drink alcohol for 24 hours before surgery. Please take any medications you have been instructed to take the morning of your surgery with small sips of water. Please be sure to wear comfortable, appropriate clothing. Please remove all jewelry and piercings, including wedding rings. RINGS WILL BE CUT OFF IF UNABLE TO REMOVE. Leave all valuable items at home. Shower using Dial soap or as advised by your Surgeon's office. Do not apply any makeup or lotions. Gel or acrylic nails must be removed from both ring fingers. Remove all nail argentine/product for surgeries involving extremities. Please remember to bring both your insurance card and a photo ID with you on the day of surgery. After your surgery: If you are having outpatient surgery - you must have a licensed moving van driver to take you home. The expectation is that this moving van driver will remain at the hospital for the duration of your procedure. You are advised to have a family member with you for at least 24 hours after being under Anesthesia. [facility] 11-21-2021 History of Present illness Narrative Chaperoned exam by Dr. Esquivel documented in this encounter [facility] 11-21-2021 History of Present illness Narrative Chaperoned exam by Dr. Esquivel Urogynecology and Reconstructive Pelvic Surgery New Patient Visit - Consultation Patient name: Cecil Ling : 1945 Date: 11/21/2021 New Patient Visit - Consultation Referring Physician: Rhona Amanda MD Consulting Physician: Juju Esquivel MD, FACOG Chief Complaints: 1. Pelvic organ prolapse. 2. Urinary incontinence. History of Presenting Illness: Mrs. Ling is a 76-year-old, G4, P2-0-2-2 woman whom I have been asked see in consultation by Rhona Amanda regarding pelvic organ prolapse, urinary incontinence. She describes a prolapse near the vaginal introitus. She denies any vaginal bleeding or discomfort. She is able to initiate a urinary stream without difficulty and, for the most part, feels as though she empties her bladder to completion. Her bowel movements are somewhat irregular related to constipation. She has bowel movements, on average, every two to three days. She denies any rectal bleeding or discharge. She denies any fecal incontinence. She reports occasional feelings of stool trapping but denies the need for splinting with either micturition or defecation. This prolapse was noted during an exam by her urologist. The patient, otherwise, states she is, for the most part, unaware of this. She has undergone pelvic floor physical therapy. She has, otherwise, not undergone any other treatment. Mrs. Ling reports leakage of urine with strong urge and utilizes as many as seven to eight pads per day which are wet when changed. She is up, on average, one or more times per night and voids six to eight or more times per day. She has had this problem for, a few years, but it has been worse, especially over the last year. She is currently on oxybutynin extended release 10 mg twice daily and has also reported use of Gemtesa but denies any improvement with these measures. Again, she has also undergone pelvic floor physical therapy. Mrs. Ling reports occasional leakage of urine with coughing and sneezing over the last few years but has never required any treatment to this point. Mrs. Ling also reports occasional insensible leakage of urine where she will be unaware leakage has occurred and then find her pad will be damp. Ms. Ling has had some issues with frequent urinary tract infections over the last year or so. She reports having three infections since March 2021, and she believes approximately four to five infections in the last 12 months. She believes these were culture-confirmed. These typically present with increased frequency, urgency, and some back discomfort. On each occasion, she has been treated with antibiotics, and her symptoms will resolve. She denies having had any issues with these prior to the last year or so. She has never undergone any formal evaluation or treatment per her report. She denies any dysuria, gross hematuria, or other symptoms of urinary tract infection at present. Past Medical History: Past Medical History: Diagnosis Date Diabetes mellitus (HCC) Type II. On oral meds. Hypertension Preglaucoma Past Surgical History: has a past surgical history that includes Urethrotomy (1970) and Kyphoplasty. Crank Hand Hx: [place]: 4 Parity: 2021 Delivery Type: Vaginal x 2. Forceps: no Largest Baby weight: 9lbs 8oz. Episiotomy: yes Perineal Laceration: no Last Pap: 2009 Normal: yes Hx Abnormal Pap: no Last Mammogram: 09/2021 Normal: yes Last Colonoscopy: 03/2019 Normal: yes Currently sexually active? no Current # partners: 0 Hx STD's: no Male: yes Female: no Both: no Dyspareunia? no Current Medications: Current Outpatient Medications Medication Sig Dispense Refill alendronate (FOSAMAX) 70 MG tablet Take 70 mg by mouth once a week . aspirin 325 MG tablet Take by mouth . atorvastatin (LIPITOR) 20 MG tablet calcium carbonate (OS-ANA) 600 mg calcium (1,500 mg) tablet Take by mouth . cholecalciferol, vitamin D3, 125 mcg (5,000 unit) capsule Take by mouth . chondroitin sulfate A sodium 400 mg cap Take by mouth . clobetasoL (TEMOVATE) 0.05 % cream APPLY CREAM TO THE AFFECTED AREA ON THE SCALP TWICE DAILY dapagliflozin (FARXIGA) 10 mg tablet Take by mouth . fluticasone propionate (FLONASE) 50 mcg/actuation nasal spray as needed . latanoprost (XALATAN) 0.005 % ophthalmic solution Apply to eye . lisinopriL (PRINIVIL,ZESTRIL) 10 MG tablet Take 10 mg by mouth daily . metFORMIN (GLUCOPHAGE) 500 MG tablet Take by mouth . multivit-min/ferrous fumarate (MULTI VITAMIN ORAL) Take by mouth . oxybutynin (DITROPAN-XL) 10 MG 24 hr tablet Take by mouth . pantoprazole (PROTONIX) 40 MG tablet Take by mouth . timolol (TIMOPTIC) 0.5 % ophthalmic solution Apply to eye . Trulicity 3 mg/0.5 mL Pen No current facility-administered medications for this visit. Allergies: Patient has no known allergies. Allergy to Latex: no Allergy to IVP Dye: no Social History: Social History Socioeconomic History Marital status: Single Tobacco Use Smoking status: Never Smokeless tobacco: Never Vaping Use Vaping Use: Never used Substance and Sexual Activity Alcohol use: Yes Comment: rare Drug use: Never Sexual activity: Not Currently Current Employment: Retired. Domestic Violence/Sexual Abuse? no Family History: Family History Problem Relation Age of Onset Diabetes Mother Hypertension Mother Diabetes Father Deep vein thrombosis Father Hypertension Father Diabetes Sister Stroke Sister Hypertension Sister Diabetes Sister Hypertension Sister Diabetes Sister Review of Systems: Mrs. Ling reports some fatigue and weight loss over the last year, which is thought to be related to medication. She is on a new medication for diabetes, which can cause some weight loss. She also reports some constipation as described in the history of present illness. She reports some joint pain, primarily in her knees. She denies any weight gain, night sweats, fevers, changes in vision, hearing, sense of smell, difficulty swallowing, chest pain, palpitations, fainting, shortness of breath, chronic cough, wheezing, nausea, vomiting, diarrhea, bloating, abdominal pain, indigestion, blood in stool, change in stool, muscle pain, muscle weakness, leg swelling, skin rashes, skin lesions, easy bruising or bleeding, seizures, numbness, tremors, headaches, depression, or anxiety. Review of all remaining systems is otherwise negative. She did not complete a voiding diary for today's visit. She reports voiding as many as 8 times per day and 1 or more times per night. Physical Exam: PACU Vitals 11/21/21 1422 BP: 133/80 Pulse: 89 Resp: 18 Temp: 98.7 F (37.1 C) General: On exam, Mrs. Ling looks comfortable and her stated age. She is alert and oriented to person, place, and time. Vital Signs: As outlined above. Weight equals 222 pounds (100.7 kg). Height equals 5 feet 7-3/4 inches. Body mass index equals 34.00 kg/sq m. She underwent screening for COVID-19 symptoms prior to entering the building and was negative. She also underwent temperature screening and was afebrile. She received a mask on entering the building, all of which were per system protocol. Head and Neck: Shows the pupils equal and react to light and accommodating. The cranial nerves are intact. The thyroid gland is normal in size, shape, and contour with no evidence of nodularity or enlargement. There is no cervical lymphadenopathy. Lungs: Clear to auscultation bilaterally with no wheezes, rhonchi, or crackles heard. Heart: Auscultation of her heart reveals normal S1 and S2 sounds, regular rate and rhythm. Abdomen: Soft, nontender, nondistended. There are no palpable masses or hernias. Extremities: Soft, nontender, and nonedematous. Peripheral pulses strong and present throughout. Neurologic: Shows normal strength, tone, and sensation at 5/5 in all 4 extremities. She shows normal gait with ambulation. Bulbocavernosus reflex is intact. Genitourinary: A comprehensive urogynecology examination is performed. The external genitalia are grossly normal in appearance. There are no visible lesions. Her urethra is normal in appearance. She has a stage II cystocele and apical descensus to within 4 cm of the vaginal introitus. On speculum exam, the vaginal mucosa appears to be intact. On bimanual examination, the uterus is normal in size, nontender, and in the mid plane. There are no adnexal masses or tenderness to palpation. On POP-Q examination, AA and BA equal 0, AP and BP equal -1, C equals -4, D equals -4, TVL equals 11, perineal body equals 2, and genital hiatus equals 4 cm. On rectal exam, there are no palpable masses and the sphincter appears intact with good tone both at rest and with contraction. Cough stress test was negative in the supine position. She was able to void 300 cc spontaneously. A postvoid residual was obtained via straight catheterization. After discussing the procedure in detail and obtaining verbal consent, she was then straight catheterized using sterile technique. A postvoid residual was obtained via straight catheterization due to reports of feelings of incomplete bladder emptying as well as urinary incontinence. After discussing the procedure in detail and obtaining verbal consent, she was then straight catheterized using sterile technique for a total of 75 cc of urine. Urine dip on that specimen was positive for glucose but negative for white blood cells, nitrites, protein, and red blood cells. Specific gravity was equal to 1.005 and pH equal to 5.0. Assessment and Plan: Mrs. Ling is a 76-year-old multiparous woman with incomplete uterovaginal vault prolapse. She has mixed urinary incontinence by history along with urgency, frequency, and nocturia. She has also reported feelings of incomplete bladder emptying as well as frequent urinary tract infections. Following today's evaluation, Mrs. Ling was counseled regarding these findings. Greater than 70 to 80+ minutes were spent [id number] with the patient during this encounter. Well over half that time spent in counseling and coordination of care. Detailed diagrams were made to illustrate today's findings as well as treatment options. She had multiple questions which were answered in detail. All records that accompanied her were reviewed. For her prolapse, we discussed possible pathophysiologies for this and all questions were answered. We also discussed potential treatment options including doing nothing versus conservative management with a pessary and/or pelvic floor physical therapy versus surgical intervention. We discussed pessaries in detail along with their management and all questions were answered. We also discussed potential benefits of pelvic floor physical therapy. Surgically, we discussed options including a vaginal reconstructive procedure with total vaginal hysterectomy and either high uterosacral ligament suspension or sacrospinous ligament suspension with possible anterior/posterior colporrhaphy versus an abdominal reconstructive procedure with abdominal hysterectomy abdominal sacrocolpopexy and possible anterior/posterior colporrhaphy. The risks and benefits of these procedures were reviewed in detail and all questions were answered. She would like to take some time to think this over. For her stress urinary incontinence we discussed possible pathophysiologies for this and all questions were answered. We also discussed potential treatment options including doing nothing versus conservative management with a continence ring and/or pelvic floor physical therapy versus surgical intervention. We discussed continence rings in detail along with their management. All questions were answered. We also discussed potential benefits of pelvic floor physical therapy. Surgically, we discussed options including a minimally invasive suburethral sling versus Mason cystourethropexy versus transurethral bulking injections. The risks and benefits of these procedures were reviewed in detail and all questions were answered. On review of her records, in June of this year she underwent urodynamic testing and this was reported as being negative for stress urinary incontinence. It is unclear as to whether this was performed with reduction of her prolapse. We will contact the referring provider to determine this. If this was performed with reduction of her prolapse, then at this point I would not recommend any surgical type intervention for her stress incontinence. If this, however, was not performed with reduction of her prolapse then we may want to consider repeating portions of that testing with reduction of her prolapse to be sure that this is not present. She does report occasional leakage of urine with coughing and sneezing, but again reports that this is fairly occasional. We did discuss, however, that with reduction of her prolapse it is possible she could see some increase in this and, again, this will be important to know how her previous testing was performed in order to be able to interpret this. For her urge urinary incontinence along with urgency, frequency, and nocturia, we discussed possible pathophysiologies for this and all questions were answered. We also discussed potential treatment options for which I have recommended conservative measures with scheduled voiding, avoidance of bladder irritants, such as alcohol and caffeine, restriction of fluid consumption to 50 to 60 ounces per day, and pelvic floor exercise (Kegels). She does report that she still consumes a significant amount of fluids throughout the day. Thus, with fluid restriction alone, I would expect to see some improvement. We also discussed the options, again, of referral for pelvic floor physical therapy and/or trial of pharmacologic therapy. Again, she has done physical therapy previously per her report. She has also been trialed on at least two different medications including oxybutynin and Gemtesa. She reports that she continues to have issues with this. We also discussed that, from her description, she has been diagnosed with glaucoma previously although she calls this pre-glaucoma. She is on medication for this, and we discussed that if this was to represent narrow angle glaucoma, then she should likely avoid anticholinergic type therapy. If that this is open-angle glaucoma, then all medication types would be available to her. She will be seeing her eye physician within the next week's time per her report. I asked that she discuss this with them, and that she hold the medication till she discusses this with them, and she will contact our office also once this information is available so we may determine whether could consider trialing a different pharmacologic agent. We also discussed that we may need to consider more third line type treatment options including a trial of neuromodulation with either InterStim or posterior tibial nerve stimulation versus trial of intravesical Botox injection. The risks and benefits of these procedures were reviewed in detail and all questions were answered. She did express interest in these measures, should she not show improvement with those outlined above. For her reported feelings of incomplete bladder emptying, she was reassured that at today's visit she appeared to be emptying her bladder well with no evidence of retention. We discussed that this may be a manifestation of her overactive bladder symptoms. If this is indeed the case, with treatment of her overactive bladder symptoms this should improve. For frequent urinary tract infections, again, is no evidence of retention or obstructive effect noted at today's visit. We discussed the use of conservative hygiene measures as well as cranberry extract and/or vitamin C supplementation. We also discussed use of D mannose and other supplements. She has undergone a cystoscopy as recently as May of this year per records that accompanied her. This was reported as being negative. It is unclear whether she has undergone imaging of the upper urogenital tract. If she has indeed undergone imaging of the upper urogenital tract. We will try to obtain those records. If not, we may want to consider performing a CT urogram in order to better assess the upper urogenital tract and rule out pathology, which may be contributing. We will see her back for followup within the next 4 to 6 weeks' time. Should she have any issues prior to that I have asked that she contact our office. Again, she will also contact our office once the above information from her eye physician becomes available. We did discuss, with her frequent urinary tract infections, the importance of good glucose control. She reports that she has been working on this with her primary care physician and reports that this has been steadily improving. Again, we also discussed the importance of this should she pursue any of the above surgical type interventions outlined above as, again, we discussed how this could impact healing, and risk of infection, etc. We will see her back as outlined above. documented [facility] encounter [facility] Diagnosis Mixed incontinence- Primary Mixed incontinence urge and stress (male)(female) Incomplete uterovaginal prolapse Uterovaginal prolapse, incomplete OAB (overactive bladder) Feeling of incomplete bladder emptying Frequent UTI Urinary tract infection, site not specified [facility] Diagnosis Mixed incontinence- Primary Mixed incontinence urge and stress (male)(female) Incomplete uterovaginal prolapse Uterovaginal prolapse, incomplete OAB (overactive bladder) Feeling of incomplete bladder emptying Frequent UTI Urinary tract infection, site not specified [facility] Diagnosis Uterovaginal prolapse- Primary Uterovaginal prolapse, unspecified [facility] Diagnosis Uterovaginal prolapse- Primary Uterovaginal prolapse, unspecified Uterovaginal prolapse- Primary Uterovaginal prolapse, unspecified Uterovaginal prolapse Uterovaginal prolapse, unspecified [facility] Diagnosis Uterovaginal prolapse- Primary Uterovaginal prolapse, unspecified Pre-op examination- Primary Uterovaginal prolapse, unspecified Primary hypertension Unspecified essential hypertension Diabetes mellitus type 2 in obese (HCC) Type II or unspecified type diabetes mellitus without mention of complication, not stated as uncontrolled Uterovaginal prolapse Uterovaginal prolapse, unspecified [facility]* Diagnosis Postop check- Primary Follow-up examination, following unspecified surgery [facility] Diagnosis Urinary frequency- Primary Urinary urgency Urgency of urination Urge urinary incontinence Urge incontinence [facility] Diagnosis Urinary urgency- Primary Urgency of urination Urinary frequency Urge urinary incontinence Urge incontinence Constipation, unspecified constipation type documented in this encounter [facility] Reason for Referral Specialty Diagnoses / Procedures Referred By Nirali bell Referred To Contact Urogynecology Diagnoses OAB (overactive bladder) Female genital prolapse, unspecified type Urinary and fecal incontinence Rhona Amanda MD [address] [facility] [address] [place] [address] [facility], [place] [address] Referral ID Status Reason Start Date Expiration Date Visits Requested Visits Authorized [id number] Authorized Specialty Services Required/Pat stephanient's Best Interest 09/14/2021 09/14/2022 1 1 Summary Purpose Family History No Family History Records FoundNo Family History Records Found Advance Directives Latest Code Status on File Code Status Date Activated Date Inactivated Comments Full Code - Unverified 02/07/2022 12:21 PM 02/09/2022 1:03 PM Additional Source Comments Care Teams (unrecognized sec tion and content) Signs And Displays Salesperson Relationship Specialty Start Date End Date Rakel Michelle MD [address] [place] [address] [address] [place], [place] [id number] PCP - General Endocrinology/Metabolism 11/21/21 Signs And Displays Salesperson Relationship Specialty Start Date End Date Rakel Michelle MD [address] [place] [address] [address] [place], [place] [id number] PCP - General Endocrinology/Metabolism 11/21/21 Signs And Displays Salesperson Relationship Specialty Start Date End Date Rakel Michelle MD [address] [place] [address] [address] [place], [place] [id number] PCP - General Endocrinology/Metabolism 11/21/21 Signs And Displays Salesperson Relationship Specialty Start Date End Date Rakel Michelle MD [address] [place] [address] [address] [place], [place] [id number] PCP - General Endocrinology/Metabolism 11/21/21 Signs And Displays Salesperson Relationship Specialty Start Date End Date Rakel Michelle MD [address] [place] [address] [address] [place] [address] PCP - General Endocrinology/Metabolism 11/21/21 Signs And Displays Salesperson Relationship Specialty Start Date End Date Rakel Michelle MD [address] [place] [address] [address] [place], [place] [id number] PCP - General Endocrinology/Metabolism 11/21/21 Signs And Displays Salesperson Relationship Specialty Start Date End Date Rakel Michelle MD [address] [facility] [address] [place] [address] PCP - General Endocrinology/Metabolism 11/21/21 Reason for Visit (unrecogniz ed section and content) Referral ID Status Reason Start Date Expiration Date V isits Requested Visits Authorized [id number] Closed Specialty Services Required/Kira ent's Best Interest 09/14/2021 09/14/2022 1 1 Reason Comments Pre-operative Medical Risk Stratificatio n Reason Comments Follow-up INFORMATION SOURCE (unrecogn ized section and content) DATE CREATED AUTHOR AUTHOR'S ORGANIZ ATION 12/04/2022 [facility] FOR RECORDS PERTAINING TO PATIENTS WHO ARE OR HAVE BEEN ENROLLED IN A CHEMICAL DEPENDENCY/SUBSTANCEABUSE PROGRAM, SOME INFORMATION MAY BE OMITTED. This clinical summary was aggregated from multiple sources. Caution should be exercised in using it in the provision of clinical care. This summary normalizes information from multiple sources, and as a consequence, information in this document may materially change the coding, format and clinical context of patient data. In addition, data may be omitted in some cases. CLINICAL DECISIONS SHOULD BE BASED ON THE PRIMARY CLINICAL RECORDS. [facility]. provides no warranty or guarantee of the accuracy or completeness of information in this document.
[2023-04-30 15:50] LABS: Bacteria 0 SEEN /hpf (None Seen); Mucous, Urine 0 SEEN /hpf (<or=2+); Red Blood Cells-Urine 0 SEEN /hpf (0-5); Squamous Epithelial Cells - UA 0 SEEN /hpf (5-10); White Blood Cells 0 SEEN /hpf (0-5)
[2023-04-30 17:38] LABS: Absolute Lymphocyte Count 1.95 X10^3/uL (0.83-4.51); Absolute Neutrophil Count 3.8 X10^3/uL (2.0-7.7); Basophil# 0.03 X10^3/uL; Basophil% 0.4 % (0-1); Eosinophil# 0.32 X10^3/uL; Eosinophils% 4.7 % (0-5); Hemoglobin 13.6 g/dL (12.0-15.0); Lymphocyte # 1.95 X10^3/ul (0.83-4.51); Lymphocyte % 28.5 % (19-41); Mean Corp Hgb Conc 33.2 g/dL (32-36); Mean Corpuscular Volume 96.5 fL (81-99); Mean Platelet Vol. 10.1 fl (6.2-12.0); Monocyte# 0.78 X10^3/uL; Monocyte% 11.4 % (0-10); NRBC Flagged by Analyzer 0 % (0-5); Neutrophil # 3.76 X10^3/uL (2.7-7.7); Neutrophil % 54.9 % (47-70); Platelet Count 326 K/mm3 (150-450); RBC Distribution Width CV 14.7 % (11.6-14.6); RBC Distribution Width SD 52.4 fl (35.1-43.9); Red Blood Count 4.25 M/mm3 (4.2-5.4); White Blood Count 6.9 K/mm3 (4.4-11.0)
[2023-04-30 17:43] LABS: Color, Urine Yellow (Yellow); Glucose, Dipstick 1000 mg/dl (Normal); Ketone-Dipstick Negative (Negative); Leukocyte Esterase-Dipstick Negative /ul (Negative); Nitrite-Dipstick Negative (Negative); Occult Blood-Urine Negative /ul (Negative); Protein-Dipstick Negative (Negative); Urine Bilirubin Dipstick Negative (Negative); Urine Clarity Clear (Clear); Urine Urobilinogen Normal (Normal)
[2023-04-30 17:54] LABS: Vitamin D,25 Hydroxy 59.7 ng/mL
[2023-04-30 17:56] LABS: ALB/GLOB Ratio 0.9 RATIO (0.9-2.4); AST(SGOT) 19 U/L (15-37); Alanine Aminotransfer ALT/SGPT 19 U/L (13-56); Albumin, Serum 3.5 g/dL (3.2-5.0); Alkaline Phosphatase 70 U/L (45-117); Anion Gap 8 (5-15); BUN 21 mg/dL (7-18); Chloride 103 mmol/L (98-107); Cholesterol 179 mg/dL (200); Creatinine, Serum 0.92 mg/dL (0.55-1.02); EST Glomerular Filtration Rate 64 mL/min (>60); Est Glom Filt Rate - Afr Amer 77 mL/min (>60); Globulin 3.8 g/dL (2.2-4.2); Glucose 178 mg/dL (74-106); High Density Lipoprotein 70 mg/dL; Potassium 4.1 mmol/L (3.5-5.1); Protein, Total 7.3 g/dL (6.4-8.2); Sodium Level 137 mmol/L (136-145); Triglycerides 117 mg/dL; Very Low Density Lipoprotein 23 mg/dL (5-40)
--- OUTSIDE RECORDS SUMMARY | 2023-04-30 18:06 | XMS RPT_ITS | CCD ---
Author Name Unknown Address [address] [facility] ([place], [place]) [address] [place] [address] Organization [facility] Care Team Providers Care Insurance Administrator Name Role Phone No, Physician Primary Care Provider Deborah Michelle MD, Rakel Primary Care Provider RIVER ACOSTA Attending Unav RAKEL Pizano Primary Care Unavailable JUJU ESQUIVEL Admitting Unavailab JUJU Friend Attending Unavailab RAKEL Marcos Primary Care Unavailable JUJU ESQUIVEL Admitting Unavailab Rakel Marcos MD Primary Care Provider [phone] JUJU ESQUIVEL Attending Zenaidaab RAKEL Marcos [facility] Unavailable NGOZI LAUREN Attending Unavailable RAKEL MICHELLE [facility] Unavailable JUJU ESQUIVEL Attending Unavailab RAKEL Marcos [facility] Unavailable NGOZI LAUREN Attending RAKEL Dalal [facility] Unavailable NGOZI LAUREN Attending Unavailable RAKEL MICHELLE [facility] Unavailable Allergies Allergy Classification Reported Allergen(s) Allergy Type Date of Onset Reaction(s) Facility (7 sources) Bee Venom Protein (Honey Bee); Translations: [BEE VENOM PROTEIN (HONEY BEE)] Propensity to adverse reactions to drug 01-22-2022 [facility] Medications Current Medications Medication Drug Class(es) Dates [...] 98.29 [degF] Ngozi JENNINGS- C Work Phone: [facility] 12-03-2022 12:58-0400 Diastolic blood pressure 84 mm[Hg] Ngozi Lauren PA-C Work Phone: [facility] 12-03-2022 12:58-0400 Heart rate 89 /min Ngozi Lauren PA- C Work Phone: [facility] 12-03-2022 12:58-0400 Respiratory rate 16 /min Ngozi Lauren PA- C Work Phone: [facility] 12-03-2022 12:58-0400 Systolic blood pressure 146 mm[Hg] Ngozi Lauren PA-C Work Phone: [facility] 06-04-2022 13:24-0500 Body temperature 98.91 [degF] Ngozi Lauren PA- C Work Phone: [facility] 06-04-2022 13:24-0500 Diastolic blood pressure 80 mm[Hg] Ngozi Lauren PA-C Work Phone: [facility] 06-04-2022 13:24-0500 Heart rate 87 /min Ngozi Lauren PA- C Work Phone: [facility] 06-04-2022 13:24-0500 Respiratory rate 17 /min Ngozi Lauren PA- C Work Phone: [facility] 06-04-2022 13:24-0500 Systolic blood pressure 144 mm[Hg] Ngozi Lauren PA-C Work Phone: [facility] 03-26-2022 14:01-0500 Body temperature 98.2 [degF] Juju Esquivel MD Work Phone: [facility] 03-26-2022 14:01-0500 Diastolic blood pressure 82 mm[Hg] Juju Esquivel MD Work Phone: [facility] Encounters Encounter Date Encounter Type Care Provider Facility Start: 12-03-2022 End: 12-03-2022 ambulatory NGOZI ROSSI MUKESHCAMPOS [facility] Start: 12-03-2022 End: 12-03-2022 Office outpatient visit 25 minutes Ngozi Lauren PA-C Work Phone: [facility] Procedures Date Procedure Procedure [...] procedure 06/10/2023 1:00 PM EST Office Visit [facility] [address] [facility] [address] [place] [phone] Ngozi Lauren PA-C [address] [facility] [address] [place] [phone] [facility] Start: 12-28-2022 Influenza vaccination Sequential Influenza Vaccine (#1) [facility] Start: 12-03-2022 End: 12-03-2022 Patient encounter procedure 12/03/2022 Office Visit Urogynecology Ngozi Lauren PA-C [address] [facility] [address] [place] [address] [facility] Start: 06-04-2022 End: 06-04-2022 Patient encounter procedure 06/04/2022 Office Visit Urogynecology Ngozi Lauren PA-C [address] [facility] [address] [place] [address] [facility] Start: 03-26-2022 End: 03-26-2022 Follow-up encounter 03/26/2022 Follow-Up Urogynecology Juju Esquivel MD [address] [place] [address] [place] [id number] [facility] Start: 02-19-2022 End: 02-19-2022 Patient encounter procedure 02/19/2022 Office Visit Urogynecology Rhona Amanda MD [address] [facility] [address] [place] [address] Juju Esquivel MD [address] [place] [address] [place] [address] [facility] Start: 02-16-2022 End: 02-16-2022 Follow-up encounter 02/16/2022 Follow-Up Urogynecology Ngozi Lauren PA-C [address] [facility] [address] [place] [address] [facility] Start: 02-07-2022 End: 02-07-2022 Admission to same day surgery center 02/07/2022 Surgery Juju Esquivel MD [address] [place] [address] [place] [address] SUPRACERVICAL HYSTERECTOMY WITH OR WITHOUT BILATERAL SALPINGO - OOPHORECTOMY, ABDOMINAL SACROCOLPOPEXY, CYSTOSCOPY [facility] Payers Date Payer Category Payer Medicare A[employer] MANAGED [place] DICARE AETNA MEDICARE PLAN (HMO) [id number] 2021-Present [phone] [address] [place] [address] [id number] 2021 Medicare [id number] 1945 Unknown [id number] 1945 Unknown [id number] 1945 Unknown [id number] 1945 Unknown [id number] 1945 Unknown [id number] 1945 Unknown [id number] 1945 Unknown [id number] Social History Date Type Detail Facility 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 [facility] Start: 1945 Sex Assigned At Not on file [facility] Start: 11-21-2021 Tobacco smoking status [facility] Never sm oked tobacco [facility] Start: 11-21-2021 Tobacco use and exposure Smokeless t obacco non-user [facility] Start: 11-21-2021 End: 12-03-2022 Alcohol intake Current drinker of alcohol (finding) [facility] Start: 11-21-2021 History SDOH Alcohol Comment rare [facility] Start: 11-11-2021 End: 06-04-2022 Exposure to SARS-CoV-2 (event) Not sure [facility] Start: 01-22-2022 Alcohol Comment occ [facility] Start: 12-03-2022 History of Social function [facility] Start: 12-03-2022 Tobacco use panel [facility] Start: 01-02-2022 Gender identity Identifies as female gender (finding) [facility] Start: 01-02-2022 Sexual orientation Heterosexual (fin ding) [facility] Medical Equipment Procedure Code Equipment Code Equipment Origin al Text Equipment Identifier Dates Mesh 10 X 15cm G yne Prolene Soft - [id number] Start: 02-07-2022 Clinical Notes 11-21-2021 to 12-09-2022 Ngozi Lauren PA-C - 12/09/2022 9:12 PM Diamond Day MA - 03/26/2022 2:23 PM ESTAddendum Note - Vandana Ham MA - 01/30/2022 8:35 AM EDTPatient Instructions Note Date & Type Note Facility 12-09-2022 History of Present illness Narrative [facility] Patient:Cecil Ling :1945 [...] Ngozi Lauren PA-C documented in this encounter [facility] 03-26-2022 History of Present illness Narrative Chaperoned exam by Dr. Esquivel documented in this encounter [facility] 01-30-2022 Note Addended by: VANDANA ROJAS on: 01/30/2022 08:35 AM Modules accepted: Orders [facility] 01-30-2022 Miscellaneous Notes Addended by: VANDANA HAM on: 01/30/2022 08:35 AM Modules accepted: Orders documented in this encounter [facility] 01-22-2022 History and physical note Cecil [...] thromboembolic prophylaxis is recommended per the 2019 [place] [employer] Guidelines for Management of [...] Artery Disease or in accordance with their video conference specialist's recommendations. 7. The patient may use appropriate amounts of acetaminophen pre-operatively for pain management if not allergic and if no history of liver disease. 8. The patient was advised to follow the current [facility] guidelines regarding fluid intake after midnight and [...] morning of their planned procedure (per [facility] protocol). 2. The patient was directed to take 80% of their evening dose of their long acting insulin on the evening prior to their procedure (per [facility] protocol). 3. The patient was directed not to take any oral diabetic agents or short acting insulin on the morning of their procedure (per [facility] protocol). 4. The patient was directed that if they have an insulin pump, they should maintain their basal rate on the morning of their procedure. They will receive further guidance from anesthesia on the morning of their procedure (per [facility] protocol). Consideration can be given to reducing [...] procedure, they should contact their PCP or gas engine performance engineer for recommendations regarding hyperglycemia management while off [...] within 24 hours of surgery per [facility] Anesthesia recommendations. 1. For patient's 65 or [...] this time. The patient also reports having zhe-mdjmnkh-dpvhcoaag diabetes mellitus. The patient believes that her [...] normal. Judgment: Judgment normal. River Acosta DO [facility] [facility] Work Phone: 01-22-2022 History and physical note [...] thromboembolic prophylaxis is recommended per the 2019 [place] [employer] Guidelines for Management of [...] Artery Disease or in accordance with their video conference specialist's recommendations. 7. The patient may use appropriate amounts of acetaminophen pre-operatively for pain management if not allergic and if no history of liver disease. 8. The patient was advised to follow the current [facility] guidelines regarding fluid intake after midnight and [...] morning of their planned procedure (per [facility] protocol). 2. The patient was directed to take 80% of their evening dose of their long acting insulin on the evening prior to their procedure (per [facility] protocol). 3. The patient was directed not to take any oral diabetic agents or short acting insulin on the morning of their procedure (per [facility] protocol). 4. The patient was directed that if they have an insulin pump, they should maintain their basal rate on the morning of their procedure. They will receive further guidance from anesthesia on the morning of their procedure (per [facility] protocol). Consideration can be given to reducing [...] procedure, they should contact their PCP or gas engine performance engineer for recommendations regarding hyperglycemia management while off [...] within 24 hours of surgery per [facility] Anesthesia recommendations. 1. For patient's 65 or [...] this time. The patient also reports having hdx-lljekym-qxihfiiik diabetes mellitus. The patient believes that her [...] River Acosta DO documented in this encounter [facility] 01-22-2022 Instructions River Acosta DO - [...] that contain aspirin, such as Anne Marie Alpine, Pepto-Bismol, Anacin), antiinflammatory medications such as Advil, Motrin, Ibuprofen, Naproxen, Aleve, Anne Marie Alpine, Pepto-Bismol, Anacin, Diclofenac, Voltaren, Daypro, Etodolac, Ketoprofen, Meloxicam, Piroxicam, Relafen, Nabumetone, etc. Also discontinue Vitamin C, Vitamin E, Mccomb-3 Fatty Acid, Fish Oil or Lovaza, as [...] day of surgery. documented in this encounter [facility] 01-22-2022 Miscellaneous Notes Patient Instructions for [facility]: MAIN OR Prior to surgery: Please contact your Surgeon's office for the scheduled time of your surgery. Report to the Surgery Family Waiting Area in the [facility] 2 hours prior to your surgery. You may use the Beauty Specialist parking available at the Blue Entrance /or [...] from both ring fingers. Remove all nail french/product for surgeries involving extremities. Please remember to bring both your insurance card and a photo ID with you on the day of surgery. After your surgery: If you are having outpatient surgery - you must have a licensed miniature train driver to take you home. The expectation is that this miniature train driver will remain at the hospital for the duration of your procedure. You are advised to have a family member with you for at least 24 hours after being under Anesthesia. documented in this encounter [facility] 01-22-2022 Note Formatting of this n ote might be different from the original. Patient Instructions for [facility]: MAIN OR Prior to surgery: Please contact your Surgeon's office for the scheduled time of your surgery. Report to the Surgery Family Waiting Area in the [facility] 2 hours prior to your surgery. You may use the Beauty Specialist parking available at the Blue Entrance /or [...] from both ring fingers. Remove all nail french/product for surgeries involving extremities. Please remember to bring both your insurance card and a photo ID with you on the day of surgery. After your surgery: If you are having outpatient surgery - you must have a licensed miniature train driver to take you home. The expectation is that this miniature train driver will remain at the hospital for the duration of your procedure. You are advised to have a family member with you for at least 24 hours after being under Anesthesia. [facility] 11-21-2021 History of Present illness Narrative Chaperoned exam by Dr. Esquivel documented in this encounter [facility] 11-21-2021 History of Present illness Narrative [...] history that includes Urethrotomy (1970) and Kyphoplasty. Automotive Service Technician Hx: [place]: 4 Parity: 2021 Delivery Type: Vaginal x [...] than 70 to 80+ minutes were spent [id number] with the patient during this encounter. Well [...] as outlined above. documented in this encounter [facility] [...] unspecified constipation type documented in this encounter [facility] Reason for Referral Specialty Diagnoses / Procedures Referred By Nirali bell Referred To Contact Urogynecology Diagnoses OAB (overactive bladder) Female genital prolapse, unspecified type Urinary and fecal incontinence Rhona Amanda MD [address] [facility] [address] [place] [address] [facility], [place] [address] Referral ID Status Reason Start Date Expiration Date Visits Requested Visits Authorized [id number] Authorized Specialty Services Required/Pat stephanient's Best Interest 09/14/2021 09/14/2022 1 1 Summary Purpose Family History No Family History Records FoundNo Family History Records Found Advance Directives Latest Code Status on File Code Status Date Activated Date Inactivated Comments Full Code - Unverified 02/07/2022 12:21 PM 02/09/2022 1:03 PM Additional Source Comments Care Teams (unrecognized sec tion and content) Insurance Administrator Relationship Specialty Start Date End Date Rakel Michelle MD [address] [place] [address] [address] [place], [place] [phone] PCP - General Endocrinology/Metabolism 11/21/21 Insurance Administrator Relationship Specialty Start Date End Date Rakel Michelle MD [address] [place] [address] [address] [place], [place] [phone] PCP - General Endocrinology/Metabolism 11/21/21 Insurance Administrator Relationship Specialty Start Date End Date Rakel Michelle MD [address] [place] [address] [address] [place], [place] [phone] PCP - General Endocrinology/Metabolism 11/21/21 Insurance Administrator Relationship Specialty Start Date End Date Rakel Michelle MD [address] [place] [address] [address] [place], [place] [phone] PCP - General Endocrinology/Metabolism 11/21/21 Insurance Administrator Relationship Specialty Start Date End Date Rakel Michelle MD [address] [place] [address] [address] [place] [address] PCP - General Endocrinology/Metabolism 11/21/21 Insurance Administrator Relationship Specialty Start Date End Date Rakel Michelle MD [address] [place] [address] [address] [place], [place] [phone] PCP - General Endocrinology/Metabolism 11/21/21 Insurance Administrator Relationship Specialty Start Date End Date Rakel Michelle MD [address] [facility] [address] [place] [address] PCP - General Endocrinology/Metabolism 11/21/21 Reason for Visit (unrecogniz ed section and content) Referral ID Status Reason Start Date Expiration Date V isits Requested Visits Authorized [id number] Closed Specialty Services Required/Kira ent's Best Interest 09/14/2021 09/14/2022 1 1 Reason Comments Pre-operative Medical Risk Stratificatio n Reason Comments Follow-up INFORMATION SOURCE (unrecogn ized section and content) DATE CREATED AUTHOR AUTHOR'S ORGANIZ ATION 12/04/2022 [facility] FOR RECORDS PERTAINING TO PATIENTS WHO ARE [...] BE BASED ON THE PRIMARY CLINICAL RECORDS. [facility] [employer] [facility]. provides no warranty or guarantee of the accuracy or completeness of information in this document.
[2023-04-30 18:08] LABS: Microalbumin,Random Urine < 5.0 mg/L (NO RANGE EST.)
== END | disposition home or self-care (01) ==
LOC: MTLAB 15:45
PROVIDERS: PCP Family Medicine; Referring Provider Family Medicine; Visit Provider Family Medicine
DX: E55.9 Vitamin D deficiency, unspecified (principal); E11.8 Type 2 diabetes mellitus with unspecified complications
CPT/HCPCS: 80053; 80061; 81001; 82043; 82306; 82570; 83036; 85025

== ENCOUNTER → 2023-07-12 | Outpatient (CLI) | payer MEDICARE, SELFPAY ==
--- OUTSIDE RECORDS SUMMARY | 2023-07-12 09:40 | XMS RPT_ITS | CCD ---
Author Name Unknown Address [address] [place] [address] Organization [facility] Care Team Providers Care Supervisor Cold Rolling Name Role Phone No, Physician Primary Care Provider Rakel Villasenor MD Primary Care Provider RIVER ACOSTA Attending Unav ailRAKEL Deng Primary Care Unavailable JUJU ESQUIVEL Admitting Unavailab JUJU Friend Attending Unavailab RAKEL Marcos Primary Care Unavailable JUJU ESQUIVEL Admitting Unavailab Rakel Marcos MD Primary Care Provider JUJU ESQUIVEL Attending Unavailab RAKEL [facility] Unavailable NGOZI LAUREN Attending RAKEL Dalal [facility] Unavailable JUJU ESQUIVEL Attending Unavailab RAKEL Marcos [facility] Unavailable NGOZI LAUREN Attending RAKEL Dalal [facility] Unavailable NGOZI LAUREN Attending Unavailable RAKEL MICHELLE [facility] Unavailable Allergies Allergy Classification Reported Allergen(s) Allergy Type Date of Onset Reaction(s) Facility (8 sources) Bee Venom Protein (Honey Bee); Translations: [BEE VENOM PROTEIN (HONEY BEE)] Propensity to adverse reactions to drug 01-22-2022 [facility] Medications Current Medications Medication Drug Class(es) Dates Sig (Normalized) Sig (Original) acetaminophen 325 mg oral tablet (4 sources) Start: 02-07-2022 take 2 tablets by mouth every six hours as needed for pain acetaminophen (TylenoL) 325 MG tablet Take 2 (two) tablets (650 mg total) by mouth every 6 (six) hours as needed for pain . 60 tablet 0 02/07/2022 Active alendronic acid 70 mg oral tablet (9 sources) Bisphosphonate Start: 09-09-2021 take 1 tablet by mouth every week alendronate (FOSAMAX) 70 MG tablet Take 1 (one) tablet (70 mg total) by mouth once a week Takes on Saturdays. . 0 09/09/2021 Active aspirin 325 mg oral tablet (9 sources) Platelet Aggregation Inhibitor, Nonsteroidal Anti-inflammatory Drug Start: 11-13-2021 take 1 tablet by mouth once daily in the evening aspirin 325 MG tablet Take 1 (one) tablet (325 mg total) by mouth every evening . 0 11/13/2021 Active atorvastatin 20 mg oral tablet (9 sources) HMG-CoA Reductase Inhibitor Start: 11-09-2021 take 1 tablet by mouth once daily in the morning atorvastatin (LIPITOR) 20 MG tablet Take 1 (one) tablet (20 mg total) by mouth every morning . 0 11/09/2021 Active calcium carbonate 1500 mg oral tablet (9 sources) Start: 11-13-2021 take 1 tablet by mouth once daily in the morning calcium carbonate (OS-ANA) 600 mg calcium (1,500 mg) tablet Take 1 (one) tablet (600 mg total) by mouth every morning . 0 11/13/2021 Active carboxymethylcell/hyp romellose (GENTEAL GEL OPHT) (5 sources) apply 1 drop(s) into the eye(s) at bedtime carboxymethylcell/ hypromellose (GENTEAL GEL OPHT) Apply 1 drop to eye at bedtime . 0 Active cholecalciferol 0.125 mg oral capsule (9 sources) Vitamin D Start: 11-13-2021 take 1 capsule by mouth once daily in the morning cholecalciferol, vitamin D3, 125 mcg (5,000 unit) capsule Take 1 (one) capsule (5,000 Units total) by mouth every morning . 0 11/13/2021 Active chondroitin sulfates 400 mg / glucosamine hydrochloride 500 mg oral tablet (5 sources) take 1 tablet by mouth twice daily glucosamine-chondr oitin 500-400 mg tablet Take 1 (one) tablet by mouth 2 (two) times a day . 0 Active clobetasol propionate 0.5 mg/ml topical cream (9 sources) Corticosteroid Start: 09-18-2021 clobetasoL (TEMOVATE) 0.05 [...] Episodic Other diseases of bladder and urethra (4 sources) Overactive bladder; Translations: [Overactive bladder] Chronic [...] te Episodic/Chronic Prolapse of female genital organs (14 sources) Prolapse of female genital organs; Translations: [Female genital prolapse, unspecified] Onset: 01-02-2022 Resolved: 02-16-2022 Chronic Unclassified (1 source) Post-op Onset: 02-16-2022 Results Test Name Value Interpretation Reference Range Facil ity Vital Signs Date Time Vital Sign Value Performing Clinician Adrián patten 12-03-2022 12:58-0400 Body temperature 98.29 [degF] Ngozi JENNINGS- C Work Phone: [facility] 12-03-2022 12:58-0400 Diastolic blood pressure 84 mm[Hg] Ngozi JENNINGS-C Work Phone: [facility] 12-03-2022 12:58-0400 Heart rate 89 /min Ngozi Lauren PA- C Work Phone: [facility] 12-03-2022 12:58-0400 Respiratory rate 16 /min Ngozi Lauren PA- C Work Phone: [facility] 12-03-2022 12:58-0400 Systolic blood pressure 146 mm[Hg] Ngozi Lauren PA-C Work Phone: [facility] 06-04-2022 13:24-0500 Body temperature 98.91 [degF] Ngozi Kempbert PA- C Work Phone: [facility] 06-04-2022 13:24-0500 Diastolic blood pressure 80 mm[Hg] Ngozi Kempbert PA-C Work Phone: [facility] 06-04-2022 13:24-0500 Heart rate 87 /min Ngozi Kempbert PA- C Work Phone: [facility] 06-04-2022 13:24-0500 Respiratory rate 17 /min Ngozi Kempbert PA- C Work Phone: [facility] 06-04-2022 13:24-0500 Systolic blood pressure 144 mm[Hg] Ngozi Kempbert PA-C Work Phone: [facility] 03-26-2022 14:01-0500 Body temperature 98.2 [degF] Juju Esquivel MD Work Phone: [facility] 03-26-2022 14:01-0500 Diastolic blood pressure 82 mm[Hg] Juju Esquivel MD Work Phone: [facility] Encounters Encounter Date Encounter Type Care Provider Facility Start: 05-21-2023 Rolanddarren Galicia Sola TRAMMELL Work Phone: [facility] Procedures Date Procedure Procedure Detail Performing Clinician Start: 02-07-2022 H/O: hysterectomy S/P hysterectomy J bishnu Esquivel MD Work Phone: Start: 01-22-2022 Basic metabolic pane l calcium total Juju Esquivel MD Work Phone: Start: 11-21-2021 Urnls dip stick/tabl et rgnt non-auto w/o micrscp Juju Esquivel MD Work Phone: Plan of Treatment Date Care Activity Detail Author Start: 06-10-2023 End: 06-10-2023 Patient encounter procedure 06/10/2023 1:00 PM EST Office Visit [facility] [address] [phone] Ngozi Lauren PA-C [address] [place] [address] [facility] Start: 12-28-2022 COVID-19 Vaccine () COVID-19 Vaccine () [facility] Start: 12-28-2022 Influenza vaccination Sequential Influenza Vaccine (#1) [facility] Start: 12-03-2022 End: 12-03-2022 Patient encounter procedure 12/03/2022 Office Visit Urogynecology Ngozi Lauren PA-C [address] [place] [id number] [facility] Start: 06-04-2022 End: 06-04-2022 Patient encounter procedure 06/04/2022 Office Visit Urogynecology Ngozi Lauren PA-C [address] [place] [address] [facility] Start: 03-26-2022 End: 03-26-2022 Follow-up encounter 03/26/2022 Follow-Up Urogynecology Juju Esquivel MD [address] [address] [facility] Start: 02-19-2022 End: 02-19-2022 Patient encounter procedure 02/19/2022 Office Visit Urogynecology Rhona Amanda MD [address] [facility] [address] [place] [address] Juju Esquivel MD [address] [place] [address] [facility] Start: 02-16-2022 End: 02-16-2022 Follow-up encounter 02/16/2022 Follow-Up Urogynecology Ngozi Lauren PA-C [address] [facility] [address] [place] [address] [facility] Start: 02-07-2022 End: 02-07-2022 Admission to same day surgery center 02/07/2022 Surgery Juju Esquivel MD [address] [place] [address] SUPRACERVICAL HYSTERECTOMY WITH OR WITHOUT BILATERAL SALPINGO - OOPHORECTOMY, ABDOMINAL SACROCOLPOPEXY, CYSTOSCOPY [facility] Periop Payers Date Payer Category Payer Medicare A[employer]NA MANAGED [place] DICARE AETNA MEDICARE PLAN (HMO) [id number] 2021-Present [phone] [address] [place] [address] [id number] 2021 Medicare [id number] 1945 Unknown [id number] 1945 Unknown [id number] 1945 Unknown [id number] 1945 Unknown [id number] 1945 Unknown [id number] 1945 Unknown [id number] 1945 Unknown [id number] Social History Date Type Detail Facility Tobacco smoking status 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 [facility] Start: 1945 Sex Assigned At Not on file [facility] Start: 11-21-2021 Tobacco smoking status [facility] Never sm oked tobacco [facility] Start: 11-21-2021 Tobacco use and exposure Smokeless t obacco non-user [facility] Start: 11-21-2021 End: 12-03-2022 Alcohol intake Current drinker of alcohol (finding) [facility] Start: 11-21-2021 History SDOH Alcohol Comment rare [facility] Start: 11-11-2021 End: 06-04-2022 Exposure to SARS-CoV-2 (event) Not sure [facility] Start: 01-22-2022 Alcohol Comment occ [facility] Start: 12-03-2022 History of Social function [facility] Start: 12-03-2022 Tobacco use panel [facility] Start: 01-02-2022 Gender identity Identifies as female gender (finding) [facility] Start: 01-02-2022 Sexual orientation Heterosexual (fin ding) [facility] Medical Equipment Procedure Code Equipment Code Equipment Origin al Text Equipment Identifier Dates Mesh 10 X 15cm G yne Prolene Soft - [id number] Start: 02-07-2022 Clinical Notes 11-21-2021 to 12-09-2022 Ngozi Lauren PA-C - 12/09/2022 9:12 PM Diamond Day MA - 03/26/2022 2:23 PM ESTAddendum Note - Vandana Ham MA - 01/30/2022 8:35 AM EDTPatient Instructions Note Date & Type Note Facility 12-09-2022 History of Present illness Narrative [facility]ician [facility] Urogynecology Patient:Cecil Ling :1945 Date [...] Ngozi Lauren PA-C documented in this encounter [facility] 03-26-2022 History of Present illness Narrative Chaperoned exam by Dr. Esquivel documented in this encounter [facility] 01-30-2022 Note Addended by: VANDANA ROJAS on: 01/30/2022 08:35 AM Modules accepted: Orders [facility] 01-30-2022 Miscellaneous Notes Addended by: VANDANA HAM on: 01/30/2022 08:35 AM Modules accepted: Orders documented in this encounter [facility] 01-22-2022 History and physical note Cecil Ling [...] thromboembolic prophylaxis is recommended per the 2019 [place] [employer] Hemat[employer] Guidelines for Management of [...] Artery Disease or in accordance with their phone specialist's recommendations. 7. The patient may use appropriate amounts of acetaminophen pre-operatively for pain management if not allergic and if no history of liver disease. 8. The patient was advised to follow the current [facility] guidelines regarding fluid intake after midnight and [...] morning of their planned procedure (per [facility] protocol). 2. The patient was directed to take 80% of their evening dose of their long acting insulin on the evening prior to their procedure (per [facility] protocol). 3. The patient was directed not to take any oral diabetic agents or short acting insulin on the morning of their procedure (per [facility] protocol). 4. The patient was directed that if they have an insulin pump, they should maintain their basal rate on the morning of their procedure. They will receive further guidance from anesthesia on the morning of their procedure (per [facility] protocol). Consideration can be given to reducing [...] procedure, they should contact their PCP or ice cream dispenser for recommendations regarding hyperglycemia management while off [...] within 24 hours of surgery per [facility] Anesthesia recommendations. 1. For patient's 65 or [...] this time. The patient also reports having lto-piqovbv-oajsplntm diabetes mellitus. The patient believes that her [...] normal. Judgment: Judgment normal. River Acosta DO [employer] Work Phone: 01-22-2022 History and physical note [...] thromboembolic prophylaxis is recommended per the 2019 [place] [employer] Hemat[employer] Guidelines for Management of [...] Artery Disease or in accordance with their phone specialist's recommendations. 7. The patient may use appropriate amounts of acetaminophen pre-operatively for pain management if not allergic and if no history of liver disease. 8. The patient was advised to follow the current [facility] guidelines regarding fluid intake after midnight and [...] morning of their planned procedure (per [facility] protocol). 2. The patient was directed to take 80% of their evening dose of their long acting insulin on the evening prior to their procedure (per [facility] protocol). 3. The patient was directed not to take any oral diabetic agents or short acting insulin on the morning of their procedure (per [facility] protocol). 4. The patient was directed that if they have an insulin pump, they should maintain their basal rate on the morning of their procedure. They will receive further guidance from anesthesia on the morning of their procedure (per [facility] protocol). Consideration can be given to reducing [...] procedure, they should contact their PCP or ice cream dispenser for recommendations regarding hyperglycemia management while off [...] within 24 hours of surgery per [facility] Anesthesia recommendations. 1. For patient's 65 or [...] this time. The patient also reports having gss-cfillcx-sriuyayul diabetes mellitus. The patient believes that her [...] River Acosta DO documented in this encounter [facility] 01-22-2022 Instructions River Acosta DO - 01/22/2022 [...] that contain aspirin, such as Anne Marie Baldwin, Pepto-Bismol, Anacin), antiinflammatory medications such as Advil, Motrin, Ibuprofen, Naproxen, Aleve, Anne Marie Baldwin, Pepto-Bismol, Anacin, Diclofenac, Voltaren, Daypro, Etodolac, Ketoprofen, Meloxicam, Piroxicam, Relafen, Nabumetone, etc. Also discontinue Vitamin C, Vitamin E, [place]-3 Fatty Acid, Fish Oil or Lovaza, as [...] day of surgery. documented in this encounter [facility] 01-22-2022 Miscellaneous Notes Patient Instructions for [facility]: MAIN OR Prior to surgery: Please contact your Surgeon's office for the scheduled time of your surgery. Report to the Surgery Family Waiting Area in the [facility] 2 hours prior to your surgery. You may use the Helper Coordinator parking available at the Blue Entrance /or [...] from both ring fingers. Remove all nail tanzanian/product for surgeries involving extremities. Please remember to bring both your insurance card and a photo ID with you on the day of surgery. After your surgery: If you are having outpatient surgery - you must have a licensed clamp truck driver to take you home. The expectation is that this clamp truck driver will remain at the hospital for the duration of your procedure. You are advised to have a family member with you for at least 24 hours after being under Anesthesia. documented in this encounter [facility] 01-22-2022 Note Formatting of this n ote might be different from the original. Patient Instructions for [facility]: MAIN OR Prior to surgery: Please contact your Surgeon's office for the scheduled time of your surgery. Report to the Surgery Family Waiting Area in the [facility] 2 hours prior to your surgery. You may use the Helper Coordinator parking available at the Blue Entrance /or [...] from both ring fingers. Remove all nail tanzanian/product for surgeries involving extremities. Please remember to bring both your insurance card and a photo ID with you on the day of surgery. After your surgery: If you are having outpatient surgery - you must have a licensed clamp truck driver to take you home. The expectation is that this clamp truck driver will remain at the hospital for the duration of your procedure. You are advised to have a family member with you for at least 24 hours after being under Anesthesia. [facility] 11-21-2021 History of Present illness Narrative Chaperoned exam by Dr. Esquivel documented in this encounter [facility] 11-21-2021 History of Present illness Narrative Chaperoned [...] history that includes Urethrotomy (1970) and Kyphoplasty. Concrete Floater Hx: [place]: 4 Parity: 2021 Delivery Type: Vaginal x [...] atorvastatin (LIPITOR) 20 MG tablet calcium carbonate (OS-NAA) 600 mg calcium (1,500 mg) tablet Take [...] than 70 to 80+ minutes were spent hkjl-[id number]-llgs with the patient during this encounter. Well [...] as outlined above. documented in this encounter [facility] Diagnosis Mixed incontinence- Primary Mixed incontinence urge and stress (male)(female) Incomplete uterovaginal prolapse Uterovaginal prolapse, incomplete OAB (overactive bladder) Feeling of incomplete bladder emptying Frequent UTI Urinary tract infection, site not specified [facility] Diagnosis Mixed incontinence- Primary Mixed incontinence urge and stress (male)(female) Incomplete uterovaginal prolapse Uterovaginal prolapse, incomplete OAB (overactive bladder) Feeling of incomplete bladder emptying Frequent UTI Urinary tract infection, site not specified [facility] Uterovaginal prolapse- Primary Uterovaginal prolapse, unspecified [facility] Diagnosis Uterovaginal prolapse- Primary Uterovaginal prolapse, unspecified Uterovaginal prolapse- Primary Uterovaginal prolapse, unspecified Uterovaginal prolapse Uterovaginal prolapse, unspecified [facility] Diagnosis Uterovaginal prolapse- Primary Uterovaginal prolapse, unspecified Pre-op examination- Primary Uterovaginal prolapse, unspecified Primary hypertension Unspecified essential hypertension Diabetes mellitus type 2 in obese (HCC) Type II or unspecified type diabetes mellitus without mention of complication, not stated as uncontrolled Uterovaginal prolapse Uterovaginal prolapse, unspecified [facility] Diagnosis Postop check- Primary Follow-up examination, following unspecified surgery [facility] Diagnosis Urinary frequency- Primary Urinary urgency Urgency of urination Urge urinary incontinence Urge incontinence [facility] Diagnosis Urinary urgency- Primary Urgency of urination Urinary frequency Urge urinary incontinence Urge incontinence Constipation, unspecified constipation type [facility] Diagnosis OAB (overactive bladder) documented in this encounter [facility] Reason for Referral Specialty Diagnoses / Procedures Referred By Nirali bell Referred To Contact Urogynecology Diagnoses OAB (overactive bladder) Female genital prolapse, unspecified type Urinary and fecal incontinence Rhona Amanda MD [address] [address] [facility], Generic [address] [place] [address] Referral ID Status Reason Start Date Expiration Date Visits Requested Visits Authorized [id number] Authorized Specialty Services Required/Pat ient's Best Interest 09/14/2021 09/14/2022 1 1 Summary Purpose Family History No Family History Records FoundNo Family History Records Found Advance Directives Latest Code Status on File Code Status Date Activated Date Inactivated Comments Full Code - Unverified 02/07/2022 12:21 PM 02/09/2022 1:03 PM Additional Source Comments Care Teams (unrecognized sec tion and content) Supervisor Cold Rolling Relationship Specialty Start Date End Date Rakel Michelle MD [address] [place] [address] [address] [place] [address] PCP - General Endocrinology/Metabolism 11/21/21 Supervisor Cold Rolling Relationship Specialty Start Date End Date Rakel Michelle MD [address] [place] [address] [address] [place] [address] PCP - General Endocrinology/Metabolism 11/21/21 Supervisor Cold Rolling Relationship Specialty Start Date End Date Rakel Michelle MD [address] [place] [address] [address] [place] [address] PCP - General Endocrinology/Metabolism 11/21/21 Supervisor Cold Rolling Relationship Specialty Start Date End Date Rkael Michelle MD [address] [place] [address] [address] [place], [place] [phone] PCP - General Endocrinology/Metabolism 11/21/21 Supervisor Cold Rolling Relationship Specialty Start Date End Date Rakel Michelle MD [address] [place] [address] [address] [place] [address] PCP - General Endocrinology/Metabolism 11/21/21 Supervisor Cold Rolling Relationship Specialty Start Date End Date Rakel Michelle MD [address] [place] [address] [address] [place] [address] PCP - General Endocrinology/Metabolism 11/21/21 Supervisor Cold Rolling Relationship Specialty Start Date End Date Rakel Michelle MD [address] [place] [phone] PCP - General Endocrinology/Metabolism 11/21/21 Supervisor Cold Rolling Relationship Specialty Start Date End Date Rakel Michelle MD [address] [phone] PCP - General Endocrinology/Metabolism 11/21/21 Reason for Visit (unrecogniz ed section and content) Referral ID Status Reason Start Date Expiration Date V isits Requested Visits Authorized [id number] Closed Specialty Services Required/Kira ent's Best Interest 09/14/2021 09/14/2022 1 1 Reason Comments Pre-operative Medical Risk Stratificatio n Reason Comments Follow-up Reason Onset Date Comments Medication Refill 05/21/2023 INFORMATION SOURCE (unrecogn ized section and content) DATE CREATED AUTHOR AUTHOR'S ORGANIZ ATION 12/04/2022 [facility] FOR RECORDS PERTAINING TO PATIENTS WHO ARE [...] BE BASED ON THE PRIMARY CLINICAL RECORDS. [facility]. provides no warranty or guarantee of the accuracy or completeness of information in this document.
[2023-07-12 10:54] LABS: Absolute Lymphocyte Count 1.75 X10^3/uL (0.83-4.51); Absolute Neutrophil Count 3.2 X10^3/uL (2.0-7.7); Basophil# 0.02 X10^3/uL; Basophil% 0.3 % (0-1); Eosinophil# 0.19 X10^3/uL; Eosinophils% 3.3 % (0-5); Hematocrit 40.5 % (37-47); Hemoglobin 13.1 g/dL (12.0-15.0); Lymphocyte # 1.75 X10^3/ul (0.83-4.51); Lymphocyte % 30.1 % (19-41); Mean Corp Hgb Conc 32.3 g/dL (32-36); Mean Corpuscular Hgb 30.2 pg (27.0-32.0); Mean Corpuscular Volume 93.3 fL (81-99); Monocyte# 0.67 X10^3/uL; Monocyte% 11.5 % (0-10); NRBC Flagged by Analyzer 0 % (0-5); Neutrophil # 3.16 X10^3/uL (2.7-7.7); Neutrophil % 54.5 % (47-70); Platelet Count 292 K/mm3 (150-450); RBC Distribution Width CV 13.7 % (11.6-14.6); RBC Distribution Width SD 46.5 fl (35.1-43.9); Red Blood Count 4.34 M/mm3 (4.2-5.4); White Blood Count 5.8 K/mm3 (4.4-11.0)
[2023-07-12 11:25] LABS: Hemoglobin A1c 8.7 % (3.8-5.6)
[2023-07-12 11:35] LABS: ALB/GLOB Ratio 0.9 RATIO (0.9-2.4); AST(SGOT) 15 U/L (15-37); Alanine Aminotransfer ALT/SGPT 15 U/L (13-56); Albumin, Serum 3.5 g/dL (3.2-5.0); Alkaline Phosphatase 65 U/L (45-117); Anion Gap 6 (5-15); BUN 20 mg/dL (7-18); BUN/Creat Ratio 21.9 RATIO (10-20); Calcium,Total 9.3 mg/dL (8.5-10.1); Chloride 105 mmol/L (98-107); Cholesterol 156 mg/dL (200); Creatinine, Serum 0.92 mg/dL (0.55-1.02); EST Glomerular Filtration Rate 64 mL/min (>60); Est Glom Filt Rate - Afr Amer 77 mL/min (>60); Globulin 3.7 g/dL (2.2-4.2); Glucose 171 mg/dL (74-106); High Density Lipoprotein 67 mg/dL; Protein, Total 7.2 g/dL (6.4-8.2); Sodium Level 139 mmol/L (136-145); Triglycerides 81 mg/dL; Very Low Density Lipoprotein 16 mg/dL (5-40)
== END | disposition home or self-care (01) ==
LOC: MTLAB 09:18
PROVIDERS: PCP Family Medicine; Referring Provider Family Medicine; Visit Provider Family Medicine
DX: E11.8 Type 2 diabetes mellitus with unspecified complications (principal); E55.9 Vitamin D deficiency, unspecified
CPT/HCPCS: 36415; 80053; 80061; 82306; 83036; 85025

== ENCOUNTER → 2023-10-18 | Outpatient (CLI) | payer MEDICARE, SELFPAY ==
[2023-10-18 08:44] LABS: Mucous, Urine 0 SEEN /hpf (<or=2+)
[2023-10-18 10:08] LABS: Absolute Lymphocyte Count 1.47 X10^3/uL (0.83-4.51); Absolute Neutrophil Count 2.5 X10^3/uL (2.0-7.7); Basophil# 0.04 X10^3/uL; Basophil% 0.8 % (0-1); Eosinophil# 0.23 X10^3/uL; Eosinophils% 4.6 % (0-5); Hematocrit 40.9 % (37-47); Lymphocyte # 1.47 X10^3/ul (0.83-4.51); Lymphocyte % 29.6 % (19-41); Mean Corp Hgb Conc 31.8 g/dL (32-36); Mean Corpuscular Hgb 29.7 pg (27.0-32.0); Mean Corpuscular Volume 93.6 fL (81-99); Mean Platelet Vol. 10.3 fl (6.2-12.0); Monocyte# 0.67 X10^3/uL; Monocyte% 13.5 % (0-10); NRBC Flagged by Analyzer 0 % (0-5); Neutrophil # 2.54 X10^3/uL (2.7-7.7); Neutrophil % 51.3 % (47-70); Platelet Count 304 K/mm3 (150-450); RBC Distribution Width CV 14.5 % (11.6-14.6); RBC Distribution Width SD 49.8 fl (35.1-43.9); Red Blood Count 4.37 M/mm3 (4.2-5.4)
[2023-10-18 10:31] LABS: Color, Urine Yellow (Yellow); Glucose, Dipstick 1000 mg/dl (Normal); Ketone-Dipstick Negative (Negative); Leukocyte Esterase-Dipstick 500 /ul (Negative); Nitrite-Dipstick Negative (Negative); Occult Blood-Urine 10 /ul (Negative); Protein-Dipstick 15 mg/dl (Negative); Urine Bilirubin Dipstick Negative (Negative); Urine Clarity Sl. Cloudy (Clear); Urine Urobilinogen Normal (Normal)
[2023-10-18 10:38] LABS: Bacteria 1+ /hpf (None Seen); Red Blood Cells-Urine 0-5 SEEN /hpf (0-5); Squamous Epithelial Cells - UA 0-5 SEEN /hpf (5-10); White Blood Cells 25-50 SEEN /hpf (0-5)
[2023-10-18 10:38] LABS: Vitamin D,25 Hydroxy 48.3 ng/mL
[2023-10-18 10:43] LABS: ALB/GLOB Ratio 0.9 RATIO (0.9-2.4); AST(SGOT) 17 U/L (15-37); Alanine Aminotransfer ALT/SGPT 14 U/L (13-56); Albumin, Serum 3.5 g/dL (3.2-5.0); Alkaline Phosphatase 69 U/L (45-117); Anion Gap 2 (5-15); BUN 19 mg/dL (7-18); BUN/Creat Ratio 20.9 RATIO (10-20); Chloride 105 mmol/L (98-107); Cholesterol 158 mg/dL (200); Creatinine, Serum 0.91 mg/dL (0.55-1.02); EST Glomerular Filtration Rate 64 mL/min (>60); Est Glom Filt Rate - Afr Amer 77 mL/min (>60); Globulin 3.8 g/dL (2.2-4.2); Glucose 96 mg/dL (74-106); High Density Lipoprotein 72 mg/dL; Protein, Total 7.3 g/dL (6.4-8.2); Sodium Level 137 mmol/L (136-145); Triglycerides 62 mg/dL; Very Low Density Lipoprotein 12 mg/dL (5-40)
[2023-10-18 10:47] LABS: Hemoglobin A1c 8.1 % (3.8-5.6)
[2023-10-18 11:24] LABS: Microalbumin:Creatinine Ratio 45.2 mg/g CRE (<30 mg/g CRE)
== END | disposition home or self-care (01) ==
LOC: MTLAB 08:41
PROVIDERS: PCP Family Medicine; Referring Provider Family Medicine; Visit Provider Family Medicine
DX: E55.9 Vitamin D deficiency, unspecified (principal); E11.59 Type 2 diabetes mellitus with other circulatory complications
CPT/HCPCS: 80053; 80061; 81001; 82043; 82306; 82570; 83036; 85025

== ENCOUNTER → 2023-11-04 | Outpatient (CLI) | payer MEDICARE, SELFPAY | END | disposition home or self-care (01) | LOC: LABSPEC 16:17 | PROVIDERS: PCP Family Medicine; Visit Provider Family Medicine | DX: L02.91 Cutaneous abscess, unspecified (principal) | CPT/HCPCS: 87070; 87205 ==

== ENCOUNTER → 2023-11-27 | Outpatient (CLI) | payer MEDICARE, SELFPAY ==
--- NOTE | 2023-11-27 | TISS_PTH ---
PATIENT: DANTE LOPEZ LOC: [facility] U#:[id number] AGE/SX: 78/F ROOM: RE11/27/[address]: Dr. Biju Romero MD : 1945 BED: DIS: 11/27/2023 SPEC #: [id number] RECD: 11/27/23 17:36 STATUS: RICKY BARTH #: [id number] WHITNEY: 11/27/23 00:[address]: Biju Romero DEPT: SURGICAL PATHOLOGY RECD BY: Selena Gill ENTERED: 11/28/23 07:05 SP TYPE: Tissue Bx FRANKIE DR: Dr. Magdaleno Watkins MD Tissues: Skin of arm Procedures: Surgery Specimen Level IV HEADER OPERATION: Punch biopsy PRE-OP DIAGNOSIS: Neoplasm of right arm TISSUE SUBMITTED: Neoplasm of right arm MICROSCOPIC DIAGNOSIS Right arm lesion, biopsy: Invasive well differentiated squamous cell carcinoma, keratoacanthomatous type. See comment. BEATRIS/ 11/29/2023 COMMENT The lesion appears to be completely excised. The tumor is present very close (<0.1 cm) to the lateral and deep margins of the specimen. Perineural or lymphvascular invasion are not seen. Clinical correlation and appropriate follow up are necessary. Case has been reviewed in consultation with Dr. Davila who concurs with the above diagnosis. IDC:AM MICROSCOPIC DESCRIPTION Slides are reviewed. GROSS DESCRIPTION Received in fixative is one container labeled with the patient's name and designated Punch biopsy. The specimen consists of a piece of diallo-white skin measuring 1.0 x 0.9cm and up to 0.5cm in thickness. A raised diallo lesion is noted on the surface measuring 0.7 x 0.7cm x 0.2cm. The specimen is inked, serially sectioned and submitted entirely in one cassette. / 11/28/2023 TC:0 CPT:97169
== END | disposition home or self-care (01) ==
LOC: LABSPEC 17:36
PROVIDERS: PCP Family Medicine; Visit Provider Family Medicine
DX: D48.7 Neoplasm of uncertain behavior of other specified sites (principal)
CPT/HCPCS: 88305

== ENCOUNTER 2023-12-20 11:13 | Day surgery (SDC) | payer MEDICARE, SELFPAY ==
--- NOTE | 2023-12-20 11:25 | PCM.HP.BLA ---
History and Physical Date of Admission: 12/20/23 The patient is examined and there are no changes from the H&P dated 12/18/2023. The patient presents for excision of the cyst of her back as well as excision of an SCC of her right upper arm to ensure adequate margins. Informed consent was obtained. Assessment & Plan Assessment/Plan (1) SCC (squamous cell carcinoma), arm: (2) Infected sebaceous cyst: PLAN: Plan We will proceed with excision of the SCC of her right upper arm and excision of the cyst of her back.
[2023-12-20 11:40] VITALS: BP 131/66; PULSE 82; RESP 16; TEMP 36.6; O2SAT 100; BMI 33.3
[2023-12-20 11:52] VITALS: BP 125/63; BP 135/73; BP 135/74; O2SAT 100; O2SAT 99
--- NOTE | 2023-12-20 12:00 | TISS_PTH ---
PATIENT: DANTE LOPEZ LOC: [facility] [place] U#:[id number] AGE/SX: 78/F ROOM: RE12/20/[address]: Dr. Linda Vidales MD : 1945 BED: DIS: 12/20/2023 SPEC #: [id number] RECD: 12/20/23 13:23 STATUS: RICKY TAB #: [id number] WHITNEY: 12/20/23 12:[address]: Linda Vidales DEPT: SURGICAL PATHOLOGY RECD BY: Selena Gill ENTERED: 12/20/23 13:40 SP TYPE: Tissue Bx FRANKIE DR: Dr. Magdaleno Watkins MD Tissues: A - TISSUE SURGICALLY REMOVED B - CYST Procedures: Surgery Specimen Level III Surgery Specimen Level IV HEADER OPERATION: Excision cyst back (3cm) with intermediate closure PRE-OP DIAGNOSIS: Squamous cell carcinoma right upper arm, sebaceous cyst back TISSUE SUBMITTED: A- Squamous cell carcinoma right upper arm, B-Sebaceous cyst back MICROSCOPIC DIAGNOSIS A. Right arm lesion, excision: Negative for residual carcinoma. Dermal fibrosis, consistent with scar (previous biopsy site). B. Back lesion, excision: Consistent with ruptured epidermal inclusion cyst with chronic inflammation and foreign body giant cell reaction. SJ/mr 12/23/2023 COMMENT Please make reference to previous specimen ([id number]) right arm lesion, biopsy with diagnosis of invasive well differentiated squamous cell carcinoma, keratoacanthomatous type. MICROSCOPIC DESCRIPTION Slides are reviewed. GROSS DESCRIPTION A. Received in fixative is one container labeled with the patient's name and designated Squamous cell carcinoma right upper arm. The specimen consists of a diallo-white skin ellipse measuring 1.5 x 1.0 x 0.5cm. The specimen is inked, serially sectioned and submitted entirely in one cassette. B. Received in fixative is one container labeled with the patient's name and designated Sebaceous cyst back. The specimen consists of a piece of diallo-white skin measuring 2.5 x 1.2cm and up to 1.0cm in thickness. The specimen is inked, serially sectioned and submitted entirely in two cassettes. BEATRIS/ 12/20/2023 TC:5 CPT:35027,99024
[2023-12-20] MEDS: Lidocaine 1% /Epi 1:100 9 ML, Sodium Bicarbonate 1 MEQ OPERA.SITE (12:08)
--- NOTE | 2023-12-20 12:57 | DCINST_ITS ---
Discharge Instructions Dressing / Incision Additional Dressing/Incision Instructions:: Keep your back elevated (recliner position) for the next 4 nights to reduce pressure on the back site. Take the oral antibiotic (Keflex) 2 times a day until finished May shower over the sites, but do not scrub. Leave the dressings in place until seen in the office. Follow Up Care Please Follow Up With: Linda Vidales MD When: In 1 to 2 weeks Test Results: Test results from this visit will be discussed in further detail at your follow- up appointment, if applicable. Discharge Plan Admission Attending Provider: Linda Vidales Primary Care Provider: Magdaleno Watkins Instructions Print Language: Luxembourger Discharge Orders/Prescriptions Prescriptions: New cephalexin 500 mg capsule 500 mg PO BID 7 Days Qty: 14 0RF No Action lisinopril 10 mg tablet 10 mg PO DAILY Farxiga 10 mg tablet PO pantoprazole 40 mg tablet,delayed release (DR/EC) PO oxybutynin chloride 10 mg tablet extended release 24hr PO fluticasone propionate 50 mcg/actuation spray,suspension intranasal timolol maleate 0.5 % drops ophthalmic (eye) latanoprost 0.005 % drops ophthalmic (eye) atorvastatin 20 mg tablet 20 mg PO DAILY alendronate 70 mg tablet PO calcium carbonate [Calcium 600] 600 mg calcium (1,500 mg) tablet 600 mg PO DAILY cholecalciferol (vitamin D3) 125 mcg (5,000 unit) capsule 125 mcg PO DAILY multivitamin Tablet 1 tab PO DAILY chondroitin sulfate A sodium 400 mg capsule 400 mg PO BID glucosamine sulfate [Glucosamine] 500 mg tablet 500 mg PO BID Rx Instructions: administer with meals mecobalamin (vitamin B12) 1,000 mcg tablet,disintegrating 1,000 mcg sublingual DAILY Rx Instructions: place tablet under tongue and allow to dissolve for at least30 secs before swallowing metformin 500 mg tablet 500 mg PO BID insulin degludec [Tresiba FlexTouch U-100] 100 unit/mL (3 mL) insulin pen subcut dapagliflozin propanediol [Farxiga] 10 mg tablet 10 mg PO DAILY mecobalamin (vitamin B12) [B12 Active] 1,000 mcg tablet,chewable 1,000 mcg PO DAILY Referrals / Follow Up: Magdaleno Watkins MD [Primary Care Provider] - Disposition Disposition (needs filled in before D/C Order can be placed): Home, Self Care
--- NOTE | 2023-12-20 12:59 | PCM.OPRPT ---
Problems Associated Problem List Diagnoses (1) SCC (squamous cell carcinoma), arm: (2) Sebaceous cyst: Report of Operation Date of Procedure: 12/20/23 Pre-Operative Diagnosis: Sebaceous cyst of back Biopsy-proven invasive SCC right upper arm Post-Operative Diagnosis: Same Surgery/Procedure Performed:: Excision cyst of back (3.5 cm) with intermediate closure Excision SCC right upper arm (2.5 cm) with intermediate closure Surgeon: Linda Vidales Type of Anesthesia: Local Specimen's removed: Same as above Estimated Blood Loss (mL): Minimal Description of Procedure: The patient presents with a resolving infected sebaceous cyst of the back. She presents for excision of the cyst to help prevent against recurrence. She also has a recently biopsied SCC of the right upper arm. The margins were noted to be close to the lines of excision. The patient is brought to the operating room and placed on the operating room table in a left lateral decubitus position. The back and right upper arm are prepped and draped in the usual sterile fashion. 1% Xylocaine with epinephrine is used for local anesthetic. Following this, an elliptical incision is made around the cyst and sinus tract of the back. This is carried down through skin subcutaneous tissue. The indurated and scarred area around the cyst was carefully enucleated along with the cyst. Hemostasis is controlled with cautery. The wound is then closed in layers using a 3-0 Monocryl suture in the subcutaneous tissue and dermis. Skin edges were approximated with a running subcuticular Monocryl suture. Further reinforcement the closure is done with interrupted Prolene suture. Dermabond, Steri-Strips, and a Tegaderm are placed on the site. We then directed our attention to the SCC of the right upper arm and after this is anesthetized with 1% Xylocaine with epinephrine, an elliptical and excision is performed around the biopsy site. Hemostasis is controlled with cautery. The site is then closed in layers using a Monocryl suture in the subcutaneous tissue and dermis. Skin edges are approximated with a running subcuticular Monocryl suture. Further reinforcement the closure is done with interrupted Prolene suture. Dermabond Steri-Strips and a Tegaderm are placed on the site. She tolerated the procedure well and was taken to the recovery area in an awake and stable condition. Needle and sponge counts are correct. Complications None Admit VTE Documentation VTE Mechan Device Prophylaxis: None Reason prophylaxis not ordered:: Treatment Not Indicated
[2023-12-20 13:31] VITALS: BP 159/88; PULSE 78; RESP 16; TEMP 36.5; O2SAT 100
== END 2023-12-20 13:32 | disposition home or self-care (01) ==
LOC: SDC 11:18 → AC 11:18
PROVIDERS: PCP Family Medicine; Referring Provider Plastic Surgery; Visit Provider Plastic Surgery
PROC: (CPT 11404; principal; 2023-12-20 11:50)
DX: L72.0 Epidermal cyst (principal); E11.9 Type 2 diabetes mellitus without complications; Z79.4 Long term (current) use of insulin; Z79.899 Other long term (current) drug therapy; I10 Essential (primary) hypertension; E78.00 Pure hypercholesterolemia, unspecified; Z79.84 Long term (current) use of oral hypoglycemic drugs; L90.5 Scar conditions and fibrosis of skin; L08.9 Local infection of the skin and subcutaneous tissue, unspecified
CPT/HCPCS: 11404; 11403; 12032; 88304; 88305

== ENCOUNTER → 2024-01-28 | Outpatient (CLI) | payer MEDICARE, SELFPAY ==
[2024-01-28 10:09] LABS: Absolute Lymphocyte Count 1.79 X10^3/uL (0.83-4.51); Absolute Neutrophil Count 2.8 X10^3/uL (2.0-7.7); Basophil# 0.05 X10^3/uL; Basophil% 0.9 % (0-1); Eosinophil# 0.44 X10^3/uL; Eosinophils% 7.5 % (0-5); Hematocrit 41.7 % (37-47); Hemoglobin 13.8 g/dL (12.0-15.0); Lymphocyte # 1.79 X10^3/ul (0.83-4.51); Lymphocyte % 30.5 % (19-41); Mean Corp Hgb Conc 33.1 g/dL (32-36); Mean Corpuscular Hgb 30.2 pg (27.0-32.0); Mean Corpuscular Volume 91.2 fL (81-99); Mean Platelet Vol. 10.3 fl (6.2-12.0); Monocyte# 0.76 X10^3/uL; NRBC Flagged by Analyzer 0 % (0-5); Neutrophil % 47.8 % (47-70); Platelet Count 328 K/mm3 (150-450); RBC Distribution Width CV 14.5 % (11.6-14.6); RBC Distribution Width SD 48.1 fl (35.1-43.9); Red Blood Count 4.57 M/mm3 (4.2-5.4); White Blood Count 5.9 K/mm3 (4.4-11.0)
[2024-01-28 10:21] LABS: Vitamin D,25 Hydroxy 47.2 ng/mL
[2024-01-28 10:36] LABS: ALB/GLOB Ratio 0.9 RATIO (0.9-2.4); AST(SGOT) 14 U/L (15-37); Alanine Aminotransfer ALT/SGPT 11 U/L (13-56); Albumin, Serum 3.5 g/dL (3.2-5.0); Alkaline Phosphatase 68 U/L (45-117); Anion Gap 5 (5-15); BUN 22 mg/dL (7-18); BUN/Creat Ratio 23.6 RATIO (10-20); Calcium,Total 9.8 mg/dL (8.5-10.1); Chloride 106 mmol/L (98-107); Cholesterol 160 mg/dL (200); Creatinine, Serum 0.93 mg/dL (0.55-1.02); EST Glomerular Filtration Rate 62 mL/min (>60); Est Glom Filt Rate - Afr Amer 75 mL/min (>60); Globulin 3.8 g/dL (2.2-4.2); Glucose 157 mg/dL (74-106); High Density Lipoprotein 70 mg/dL; Potassium 4.5 mmol/L (3.5-5.1); Protein, Total 7.3 g/dL (6.4-8.2); Sodium Level 136 mmol/L (136-145); Triglycerides 56 mg/dL; Very Low Density Lipoprotein 11 mg/dL (5-40)
[2024-01-28 10:53] LABS: Microalbumin,Random Urine 5.9 mg/L (NO RANGE EST.)
[2024-01-28 10:59] LABS: Hemoglobin A1c 8.3 % (3.8-5.6)
== END | disposition home or self-care (01) ==
LOC: MTLAB 08:47
PROVIDERS: PCP Family Medicine; Referring Provider Family Medicine; Visit Provider Family Medicine
DX: E11.8 Type 2 diabetes mellitus with unspecified complications (principal); E55.9 Vitamin D deficiency, unspecified
CPT/HCPCS: 36415; 80053; 80061; 82043; 82306; 82570; 83036; 85025

== ENCOUNTER → 2024-04-16 | Outpatient (CLI) | payer MEDICARE, SELFPAY ==
[2024-04-16 12:38] LABS: Absolute Lymphocyte Count 1.19 X10^3/uL (0.83-4.51); Absolute Neutrophil Count 3.6 X10^3/uL (2.0-7.7); Basophil# 0.02 X10^3/uL; Basophil% 0.3 % (0-1); Eosinophil# 0.44 X10^3/uL; Eosinophils% 7.2 % (0-5); Hematocrit 43.2 % (37-47); Hemoglobin 13.9 g/dL (12.0-15.0); Lymphocyte # 1.19 X10^3/ul (0.83-4.51); Lymphocyte % 19.4 % (19-41); Mean Corp Hgb Conc 32.2 g/dL (32-36); Mean Corpuscular Hgb 30.1 pg (27.0-32.0); Mean Corpuscular Volume 93.5 fL (81-99); Mean Platelet Vol. 10.4 fl (6.2-12.0); Monocyte# 0.78 X10^3/uL; Monocyte% 12.7 % (0-10); NRBC Flagged by Analyzer 0 % (0-5); Neutrophil # 3.63 X10^3/uL (2.7-7.7); Neutrophil % 59.3 % (47-70); Platelet Count 305 K/mm3 (150-450); RBC Distribution Width CV 14.7 % (11.6-14.6); RBC Distribution Width SD 50.8 fl (35.1-43.9); Red Blood Count 4.62 M/mm3 (4.2-5.4); White Blood Count 6.1 K/mm3 (4.4-11.0)
[2024-04-16 12:51] LABS: Hemoglobin A1c 7.1 % (3.8-5.6)
[2024-04-16 13:03] LABS: ALB/GLOB Ratio 0.9 RATIO (0.9-2.4); AST(SGOT) 12 U/L (15-37); Alanine Aminotransfer ALT/SGPT 18 U/L (13-56); Albumin, Serum 3.5 g/dL (3.2-5.0); Alkaline Phosphatase 74 U/L (45-117); Anion Gap 6 (5-15); BUN 28 mg/dL (7-18); BUN/Creat Ratio 31.2 RATIO (10-20); Calcium,Total 9.2 mg/dL (8.5-10.1); Chloride 105 mmol/L (98-107); Cholesterol 167 mg/dL (200); EST Glomerular Filtration Rate 65 mL/min (>60); Est Glom Filt Rate - Afr Amer 78 mL/min (>60); Globulin 3.8 g/dL (2.2-4.2); Glucose 114 mg/dL (74-106); High Density Lipoprotein 76 mg/dL; Potassium 4.4 mmol/L (3.5-5.1); Protein, Total 7.3 g/dL (6.4-8.2); Sodium Level 137 mmol/L (136-145); Triglycerides 57 mg/dL; Very Low Density Lipoprotein 11 mg/dL (5-40)
== END | disposition home or self-care (01) ==
PROVIDERS: PCP Family Medicine; Referring Provider Family Medicine; Visit Provider Family Medicine
DX: E11.8 Type 2 diabetes mellitus with unspecified complications (principal)
CPT/HCPCS: 36415; 80053; 80061; 83036; 85025

== ENCOUNTER → 2024-05-16 | Outpatient (CLI) | payer MEDICARE, SELFPAY ==
[2024-05-16 10:12] LABS: Absolute Lymphocyte Count 1.65 X10^3/uL (0.83-4.51); Absolute Neutrophil Count 3.1 X10^3/uL (2.0-7.7); Basophil# 0.02 X10^3/uL; Basophil% 0.3 % (0-1); Eosinophil# 0.55 X10^3/uL; Eosinophils% 9.2 % (0-5); Hematocrit 42.4 % (37-47); Hemoglobin 14.3 g/dL (12.0-15.0); Lymphocyte # 1.65 X10^3/ul (0.83-4.51); Lymphocyte % 27.6 % (19-41); Mean Corp Hgb Conc 33.7 g/dL (32-36); Mean Corpuscular Hgb 31.3 pg (27.0-32.0); Mean Corpuscular Volume 92.8 fL (81-99); Mean Platelet Vol. 9.9 fl (6.2-12.0); Monocyte# 0.68 X10^3/uL; Monocyte% 11.4 % (0-10); NRBC Flagged by Analyzer 0 % (0-5); Neutrophil # 3.06 X10^3/uL (2.7-7.7); Neutrophil % 51.3 % (47-70); Platelet Count 275 K/mm3 (150-450); RBC Distribution Width CV 13.7 % (11.6-14.6); RBC Distribution Width SD 46.8 fl (35.1-43.9); Red Blood Count 4.57 M/mm3 (4.2-5.4)
[2024-05-16 11:22] LABS: AST(SGOT) 14 U/L (15-37); Alanine Aminotransfer ALT/SGPT 19 U/L (13-56); Albumin, Serum 3.5 g/dL (3.2-5.0); Alkaline Phosphatase 67 U/L (45-117); Anion Gap 5 (5-15); BUN 22 mg/dL (7-18); Calcium,Total 9.1 mg/dL (8.5-10.1); Chloride 105 mmol/L (98-107); Cholesterol 160 mg/dL (200); Creatinine, Serum 0.92 mg/dL (0.55-1.02); EST Glomerular Filtration Rate 63 mL/min (>60); Est Glom Filt Rate - Afr Amer 76 mL/min (>60); Globulin 3.5 g/dL (2.2-4.2); Glucose 168 mg/dL (74-106); High Density Lipoprotein 76 mg/dL; Potassium 4.4 mmol/L (3.5-5.1); Sodium Level 136 mmol/L (136-145); Triglycerides 79 mg/dL; Very Low Density Lipoprotein 16 mg/dL (5-40)
[2024-05-16 11:24] LABS: Hemoglobin A1c 7.4 % (3.8-5.6)
[2024-05-18 09:10] LABS: Vitamin D,25 Hydroxy 50.5 ng/mL
== END | disposition home or self-care (01) ==
PROVIDERS: PCP Family Medicine; Referring Provider Family Medicine; Visit Provider Family Medicine
DX: E11.8 Type 2 diabetes mellitus with unspecified complications (principal); E55.9 Vitamin D deficiency, unspecified
CPT/HCPCS: 80053; 80061; 82306; 83036; 85025

== ENCOUNTER → 2024-10-20 | Outpatient (CLI) | payer MEDICARE, SELFPAY ==
--- NOTE | 2024-10-20 10:28 | ECHOCS_ITS ---
Reason For Study Reason For Study: SOB Procedure This was a 2D Doppler, Color Flow transthoracic echocardiogram. The study was technically difficult. Contrast injection was performed. Exam performed in department. Left Ventricle Normal LV size. Left ventricular systolic function is normal. The left ventricular ejection fraction is 50 %. No regional wall motion abnormalities noted. Right Ventricle Normal RV size. Normal systolic function. Atria Normal left atrium. Normal right atrium. Bubble contrast study is negative for PFO/ASD. Mitral Valve Mild (1+) eccentric mitral valve insufficiency. Tricuspid Valve Normal tricuspid valve. Mild (1+) tricuspid valve insufficiency. Pulmonary artery systolic pressure is 28 mmHg. Aortic Valve Trisinus/trileaflet aortic valve. Pulmonic Valve Normal pulmonic valve. Great Vessels Normal aortic root. The pulmonary artery is normal size. Inferior vena cava collapse with respiration. Pericardium/Pleural No pericardial effusion. Medication 22 gauge I.V. with prn adaptor inserted into right arm. Definity1.5ml given slow IV push to enhance endocardial definition. Performed a rapid injection of agitated mix of 9 cc saline and 1cc air to assess for atrial septal defect. MMode/2D Measurements & Calculations LVIDd: 5.3 cm IVSd: 0.93 cm Ao root diam: 3.1 cm LVIDs: 4.3 cm LVPWd: 1.1 cm RVDd: 3.5 cm FS: 19.1 % LAV(MOD-bp): 83.4 ml LVAd ap4: 33.1 cm2 SV(MOD-sp4): 51.6 ml LAV(MOD-bp) Indexed: 37.0 ml/m2 LVLd ap4: 8.1 cm SI(MOD-sp4): 22.9 ml/m2 LAV(MOD-sp2): 73.3 ml EDV(MOD-sp4): 110.9 ml LAV(MOD-sp4): 83.8 ml EDV(sp4-el): 114.8 ml LVAs ap4: 21.6 cm2 LVLs ap4: 6.5 cm ESV(MOD-sp4): 59.3 ml ESV(sp4-el): 60.7 ml EF(MOD-sp4): 46.6 % EF(sp4-el): 47.1 % SV(sp4-el): 54.1 ml LA A4 area: 25.9 cm2 LA dimension(2D): 4.8 cm RA A4 area: 11.8 cm2 TAPSE: 2.3 cm Time Measurements MV dec time: 0.21 sec Doppler Measurements & Calculations MV E max shahram: 84.5 cm/sec Lat Peak E' Shahram: 9.9 cm/sec Med Peak E' Shahram: 6.6 cm/sec MV A max shahram: 80.6 cm/sec E/E' lat: 8.5 E/E' med: 12.9 MV E/A: 1.0 MV V2 max: 107.7 cm/sec MV P1/2t max shahram: 107.7 cm/sec Ao V2 max: 150.0 cm/sec MV max P.6 mmHg MV P1/2t: 80.1 msec Ao max P.0 mmHg MV V2 mean: 66.2 cm/sec MV dec slope: 393.8 cm/sec2 Ao V2 mean: 110.3 cm/sec MV mean P.0 mmHg MVA(P1/2t): 2.7 cm2 Ao mean P.5 mmHg MV V2 VTI: 32.6 cm Ao V2 VTI: 36.3 cm AV (velocity ratio): 0.57 LV V1 max: 85.6 cm/sec PA V2 max: 88.0 cm/sec TR max shahram: 246.7 cm/sec LV V1 max P.9 mmHg TR max P.3 mmHg LV V1 mean P.8 mmHg LV V1 mean: 62.9 cm/sec LV V1 VTI: 20.7 cm ECHO/Echo Complete W/ Contrast Interpretation Summary Normal LV size. Left ventricular systolic function is normal. The left ventricular ejection fraction is 50 %. No regional wall motion abnormalities noted. Bubble contrast study is negative for PFO/ASD. Contrast injection was performed. Ordering Physician: Magdaleno Watkins Referring Physician: Magdaleno Watkins Performed By: Augustine Welsh RCS
== END | disposition home or self-care (01) ==
PROVIDERS: PCP Family Medicine; Referring Provider Family Medicine; Visit Provider Family Medicine
DX: R06.02 Shortness of breath (principal)
CPT/HCPCS: 93306; Q9957; A4216; C8929

== ENCOUNTER 2024-10-28 09:12 | Outpatient (CLI) | payer MEDICARE, SELFPAY ==
[2024-10-28 10:54] LABS: Color, Urine Yellow (Yellow); Glucose, Dipstick 1000 mg/dl (Normal); Ketone-Dipstick Negative (Negative); Leukocyte Esterase-Dipstick 500 /ul (Negative); Nitrite-Dipstick Positive (Negative); Occult Blood-Urine 10 /ul (Negative); Protein-Dipstick 15 mg/dl (Negative); Specific Gravity, Urine 1.010 (1.002-1.030); Urine Bilirubin Dipstick Negative (Negative)
[2024-10-28 11:00] LABS: Hematocrit 41.6 % (37-47); Hemoglobin 14.1 g/dL (12.0-15.0); Immature Granulocytes Count 0.010 X10^3/uL (0.0-0.0); Mean Corp Hgb Conc 33.9 g/dL (32-36); Mean Corpuscular Volume 92.9 fL (81-99); Mean Platelet Vol. 10.3 fl (6.2-12.0); NRBC Flagged by Analyzer 0 % (0-5); Platelet Count 334 K/mm3 (150-450); RBC Distribution Width CV 13.3 % (11.6-14.6); RBC Distribution Width SD 45.3 fl (35.1-43.9); Red Blood Count 4.48 M/mm3 (4.2-5.4); White Blood Count 5.5 K/mm3 (4.4-11.0)
[2024-10-28 11:22] LABS: Creatinine, Urine (random) 82.90 mg/dL (28.00-217.00); Microalbumin,Random Urine 13.7 mg/L (NO RANGE EST.)
[2024-10-28 13:43] LABS: AST(SGOT) 20 U/L (<=31); Alanine Aminotransfer ALT/SGPT 12 U/L (<=34); Albumin, Serum 3.9 g/dL (3.4-4.8); Alkaline Phosphatase 90 U/L (35-104); Anion Gap 12 (5-15); BUN 22 mg/dL (4-19); BUN/Creat Ratio 23.5 RATIO (10-20); Calcium,Total 9.6 mg/dL (7.6-11.0); Carbon Dioxide 22.8 mmol/L (21.0-32.0); Chloride 103 mmol/L (98-108); Cholesterol 163 mg/dL (<=200); Globulin 3.1 g/dL (2.2-4.2); Glucose 164 mg/dL (70-99); Low Density Lipoprotein Calc. 88 mg/dL; Potassium 4.5 mmol/L (3.3-5.1); Triglycerides 72 mg/dL; Very Low Density Lipoprotein 14 mg/dL (5-40); Vitamin D,25 Hydroxy 43.1 ng/mL (30-100); cholesterol:hdl ratio screen 2.68
== END 2024-10-28 23:59 | disposition home or self-care (01) ==
LOC: MTLAB 09:13
PROVIDERS: PCP Family Medicine; Referring Provider Family Medicine; Visit Provider Family Medicine
DX: E11.8 Type 2 diabetes mellitus with unspecified complications (principal); E55.9 Vitamin D deficiency, unspecified
CPT/HCPCS: 36415; 80053; 80061; 81002; 82043; 82306; 82570; 83036; 85025

== ENCOUNTER → 2025-03-01 | Outpatient (CLI) | payer MEDICARE, SELFPAY ==
[2025-03-01 10:29] LABS: Anion Gap 10 (5-15); BUN 31 mg/dL (4-19); BUN/Creat Ratio 36.7 RATIO (10-20); Calcium,Total 9.6 mg/dL (7.6-11.0); Carbon Dioxide 24.9 mmol/L (21.0-32.0); Chloride 103 mmol/L (98-108); Glucose 146 mg/dL (70-99); Potassium 4.6 mmol/L (3.3-5.1)
== END | disposition home or self-care (01) ==
LOC: MTLAB 07:54
PROVIDERS: PCP Family Medicine; Referring Provider Family Medicine; Visit Provider Family Medicine
DX: E11.8 Type 2 diabetes mellitus with unspecified complications (principal)
CPT/HCPCS: 36415; 80048

== ENCOUNTER → 2025-04-16 | Outpatient (CLI) | payer MEDICARE, SELFPAY ==
--- NOTE | 2025-04-16 12:43 | CT_ITS ---
PROCEDURE: CHEST WITH CONTRAST 04/16/2025 REASON FOR EXAM: MARFAN SYNDROME TECHNIQUE: Procedure Code: CTCHW Modality: CT Procedure: CHEST WITH CONTRAST CT chest was performed with IV contrast. Multiplanar reformats were generated. CONTRAST: Isovue 3 7 VOLUME: 94 mL One or more dose reduction techniques were used (e.g., Automated exposure control, adjustment of the mA and/or kV according to patient size, use of iterative reconstruction technique). RADIATION DOSE SUMMARY: CTDlvol: 13.3+ 19.14 mGy DLP: 695.55 mGycm COMPARISON: None FINDINGS: Mild/moderate motion limitation greatest through the mid and lower lungs. Heart/pericardium: Advanced three-vessel coronary atherosclerosis and/or stents. Mitral annular calcification. Aorta: Normal in caliber, maximum roughly 3.2 cm along the ascending segment. Mild/moderate atherosclerosis. Suspected mild/moderate stenosis at the origin of the LEFT subclavian artery suboptimally depicted due to non angiographic technique and motion in the region. Pulmonary arteries: Unremarkable. Lymph nodes: Unremarkable. Lungs/pleura: Atelectasis/scarring. 3 mm LEFT upper lobe nodule (series 4, image 29). Granuloma. Airways: Expiratory appearance of the trachea. Chest wall: Roughly 15 mm RIGHT lobe thyroid nodule.. 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 Atrophic pancreas.. Musculoskeletal: Demineralization. Degenerative findings. Findings suggestive of diffuse idiopathic skeletal hyperostosis. Presumed chronic anterior wedge compression deformities involving T11 and T12 and partially imaged at L1 with kyphoplasty/vertebroplasty at these levels. Mild scoliosis.. CT/Chest WITH Contrast IMPRESSION: 1. No acute findings. 2. 3 mm LEFT upper lobe nodule, statistically benign and requiring no specific follow-up in a low risk patient. Otherwise, recommend follow-up CT chest in one year per the Fleischner society recommendat ions for pulmonary nodule follow-up, presuming no history of malignancy or known immunosuppression in which case closer follow-up may be warranted. 3. Recommend thyroid ultrasound. 4. Additional description as above. Incidental Finding Alert: As above. Management of incidental findings should f ollow the [employer] (ACR) Incidental Findings Committee recommendations. Reading Location: [id number]
[2025-04-16 13:10] LABS: CREATININE FINGERSTICK < 1.0 mg/dL (0.55-1.02); EGFR FINGERSTICK > 60.0000 mL/min (>60)
== END | disposition home or self-care (01) ==
LOC: CT 12:43
PROVIDERS: PCP Family Medicine; Referring Provider Internal Medicine Cardiovascular Disease; Visit Provider Internal Medicine Cardiovascular Disease
DX: Q87.40 Marfan syndrome, unspecified (principal)
CPT/HCPCS: 71260; Q9967